=== PATIENT | female | born 1935 | race Caucasian/White ===

== ENCOUNTER 2017-12-02 12:59 | Outpatient (CLI) | payer MEDICARE ==
[2017-12-02 14:58] LABS: Hemoglobin 15.1 g/dL (12.0-16.0); Mean Corpuscular HGB CONC 33.7 g/dL (32.0-36.0); Mean Corpuscular Hemoglobin 29.3 pg (27.0-31.0); Mean Platelet Volume 9.2 fL (7.4-10.4); Platelet Count 254 thou/uL (130-400); RBC Distribution Width 12.9 % (11.5-14.5); Red Blood Cell (RBC) Count 5.13 mill/uL (4.20-5.40)
[2017-12-02 14:59] LABS: Bilirubin Negative (Negative); Blood, Urine Negative (Negative); Clarity CLEAR (Clear); Glucose, Urine (Dipstick) 500 mg/dL (Negative); Leukocyte Trace (Negative); Nitrite Negative (Negative); Protein, Urine (Dipstick) Trace mg/dL (Neg-Trace); Specific Gravity, Urine 1.012 (1.002-1.036); Urobilinogen 0.2 mg/dL (0.2-1.0); pH, Urine 6.5 (5.0-9.0)
[2017-12-02 15:02] LABS: Bacteria/HPF None Seen HPF (None Seen); Hyaline Casts/LPF 0-3 HYALINE CAST LPF (0-3 Hyaline); Pathc Cast-AUWi Flag 0.29 (0-2.49); RBC/HPF 0-3 HPF (0-3); Squamous Epithelial 0-3 HPF (0-3)
[2017-12-02 15:15] LABS: Prothrombin Time 23.1 SEC (12.0-14.7)
[2017-12-02 15:16] LABS: PTT 43.6 SEC (22.9-36.1)
[2017-12-02 15:21] LABS: Anion Gap 13 mmol/L (10-20); BUN (Urea Nitrogen) 14 mg/dL (9.8-20.1); Calc. Creatinine Clearance 0 mL/min (70-130); Calcium 9.4 mg/dL (7.8-10.44); Carbon Dioxide 29 mmol/L (23-31); Chloride 103 mmol/L (98-107); Estimated GFR-MDRD 59; Glucose 159 mg/dL (83-110); Potassium 3.1 mmol/L (3.5-5.1); Sodium 142 mmol/L (136-145)
== END 2017-12-02 13:00 | disposition home or self-care (01) ==
LOC: LABBT 12:59
PROVIDERS: ATTEND Orthopaedic Surgery
DX: Z01.818 Encounter for other preprocedural examination (principal); M17.11 Unilateral primary osteoarthritis, right knee
CPT/HCPCS: 80048; 81001; 85027; 85610; 85730; 86850; 86900; 86901; 87081; 93005; 93010

== ENCOUNTER 2017-12-07 05:34 | Inpatient (IN) | payer MEDICARE ==
[2017-12-07] MEDS ORDERED: Vancomycin HCl 1.5 GM in Sodium Chloride 0.9% 250 ML 300 ML IVPB SCH ×2 (06:15→18:00)
[2017-12-07] MEDS ORDERED: Fentanyl 100 MCG/2 ML VIAL ONE ×3 (06:24→10:37)
[2017-12-07] MEDS ORDERED: Midazolam HCl 2 mg/2 ml Vial ONE (06:24)
[2017-12-07] MEDS ORDERED: Sodium Chloride 0.9% 100 ML ONE (06:29)
[2017-12-07] MEDS ORDERED: CEFAZOLIN/Water 2 GM/20 ML SYRINGE ONE (06:29)
[2017-12-07] MEDS ORDERED: Bupivacaine HCl 0.5%/Epinephrine 1:200,000/PF 30 ml Vial ONE (06:35)
[2017-12-07] MEDS ORDERED: Levofloxacin 500 mg/D5W 100 ml Premix Bag ONE (06:49)
[2017-12-07 07:03] LABS: PTT 30.9 SEC (22.9-36.1); Prothrombin Time 13.4 SEC (12.0-14.7)
[2017-12-07] MEDS ORDERED: traMADol HCl 50 MG TAB PO PRN ×2 (07:33)
[2017-12-07] MEDS ORDERED: Promethazine HCl 25 MG/ML VIAL IM PRN ×3 (07:33→14:33)
[2017-12-07] MEDS ORDERED: Fentanyl 100 MCG/2 ML VIAL IV PRN (07:33)
[2017-12-07] MEDS ORDERED: Zolpidem Tartrate 5 MG TAB PO PRN ×2 (07:33→14:33)
[2017-12-07] MEDS ORDERED: Ondansetron HCl/PF 4 MG/2 ML Vial IVP PRN ×2 (07:33→08:26)
[2017-12-07] MEDS ORDERED: HYDROcodone/Acetaminophen 7.5/325 mg Tablet PO PRN ×2 (07:34)
[2017-12-07] MEDS ORDERED: Bupivacaine/Epinephrine 0.25% 30 ML VIAL ONE (08:22)
[2017-12-07] MEDS ORDERED: Promethazine HCl 25 MG/ML VIAL SLOW IVP PRN (08:26)
[2017-12-07 10:12] LABS: Bilirubin Negative (Negative); Blood, Urine Negative (Negative); Clarity CLEAR (Clear); Glucose, Urine (Dipstick) 500 mg/dL (Negative); Leukocyte Negative (Negative); Nitrite Negative (Negative); Protein, Urine (Dipstick) Negative (Neg-Trace); Specific Gravity, Urine 1.016 (1.002-1.036); Urobilinogen 0.2 mg/dL (0.2-1.0); pH, Urine 7.5 (5.0-9.0)
[2017-12-07] MEDS ORDERED: Ondansetron HCl/PF 4 MG/2 ML Vial ONE (10:41)
[2017-12-07] MEDS ORDERED: Ketorolac Tromethamine 30 MG/ML VIAL ONE (10:42)
[2017-12-07] MEDS ORDERED: Ketorolac Tromethamine 30 MG/ML VIAL IVP SCH (11:00)
[2017-12-07] MEDS ORDERED: Tranexamic Acid 1,000 MG in Sodium Chloride 0.9% 100 ML IVPB SCH (11:00)
[2017-12-07] MEDS ORDERED: Acetaminophen 1,000 MG in Premix Bag 1 BAG IVPB SCH (11:00)
[2017-12-07] MEDS ORDERED: Ropivacaine 0.5% HCl/PF (150 MG/30 ML VIAL) ONE (12:33)
[2017-12-07] MEDS ORDERED: Bupivacaine 0.25% HCL 30 ML VIAL ONE (12:33)
--- NOTE | 2017-12-07 12:44 | RAD ---
TWO VIEWS RIGHT KNEE: Date: 12-07-17 History: Total knee post-operative. Comparison: None available. FINDINGS: There is evidence of a right total knee prosthesis. No hardware complication is seen. There is no fra cture or dislocation identified. Subcutaneous emphysema and edema are seen about the knee. Vascular c alcifications are seen posterior to the knee. IMPRESSION: Post-surgical change related to recent placement of a right total knee prosthesis. POS: [facility]
[2017-12-07] MEDS ORDERED: Lidocaine 1% PF 5 ML VIAL ONE (12:47)
[2017-12-07] MEDS ORDERED: ePHEDrine/0.9% NaCl/PF SYRINGE 50 mg/10 ml ONE (12:47)
[2017-12-07] MEDS ORDERED: PROPOFOL 200 MG/20 ML VIAL ONE (12:47)
[2017-12-07] MEDS ORDERED: Multivitamin W/ Minerals 1 TAB PO SCH ×2 (14:33→15:00)
[2017-12-07] MEDS ORDERED: Fentanyl 100 MCG/2 ML VIAL SLOW IVP PRN ×2 (14:33)
[2017-12-07] MEDS ORDERED: Senokot S 8.6-50 MG TAB PO SCH ×2 (14:33→15:00)
[2017-12-07] MEDS ORDERED: Ferrous Gluconate 324 MG TAB PO SCH ×2 (14:33→15:00)
[2017-12-07] MEDS ORDERED: diphenhydrAMINE 25 MG CAP PO PRN (14:33)
[2017-12-07] MEDS: Multivitamin W/ Minerals 1 TAB PO SCH (15:50)
[2017-12-07] MEDS: CEFAZOLIN/Water 2 GM/20 ML SYRINGE SLOW IVP SCH ×2 (15:50→23:46)
[2017-12-07] MEDS: Sodium Chloride 0.9% 1,000 ML IV SCH (15:51)
--- NOTE | 2017-12-07 16:50 | HP ---
CONSULT: From Dr. Celeste for medical management. HISTORY OF PRESENT ILLNESS: The patient is status post right knee arthroplasty. Patient had some na usea and vomiting in the recovery room, this resolved rapidly. Since that time, she has had no nause a, no sweats, no fever, no chest pain, no shortness of breath. PAST MEDICAL HISTORY: Pertinent for atrial fibrillation. She underwent cardioversion approximately 16 months ago. She has hypertension, diabetes mellitus type 2, dyslipidemia and chronic anticoagulat ion. CURRENT MEDICATIONS: Warfarin, which has been held for the surgery, sotalol 80 mg twice a day, Tresi ba FlexTouch insulin 18 units at bedtime, Lipitor 20 mg a day, amlodipine 5 mg a day, losartan 100 mg a day, furosemide 40 mg a day, clonidine 0.1 mg twice a day, and Protonix 40 mg a day. ALLERGIES: No medical allergies, but multiple FOOD allergies. PAST SURGICAL HISTORY: Three colon surgeries, she only has 9 inches of colon left, bilateral catarac t surgery, hysterectomy, and resection of a cyst on her spine. FAMILY HISTORY: Her father and 3 of his siblings had coronary artery disease and diabetes mellitus. Her brother with type 1 and nephew with type 1, and both grandfathers had type 2. SOCIAL HISTORY: She is . FULL CODE status. next of kin. No tobacco, no alcohol. REVIEW OF SYSTEMS: GENERAL: No headaches, dizziness or fainting. EYES: No double vision, blurred vision, flashing lights. ENT: No ear pain or drainage. No nose bleeding. No trouble swallowing. CARDIAC: No chest pain, orthopnea or paroxysmal nocturnal dyspnea. RESPIRATIONS: No cough, wheezing or asthma. GASTROINTESTINAL: Nausea and vomiting upon recovery from anesthesia, resolved. GENITOURINARY: Frequent urinations, incontinence, sees a urologist for same. Takes no medicines ___ __ pads. MUSCULOSKELETAL: No pain or swelling in her arms or legs. NEUROLOGIC: No strokes, seizures, or focal weakness. PSYCHIATRIC: No anxiety or depression. SKIN: She had a long episode of idiopathic hives. She finally decides that the artificial sweetener in the pink pocket caused it, she stopped and she has had no further problems. HEME AND LYMPH: No tender or swollen lymph nodes in axilla, inguinal or cervical area. PHYSICAL EXAMINATION: GENERAL: She is alert, oriented, cooperative, pleasant lady. VITAL SIGNS: Pulse 76, blood pressure 120/60, respirations 16. HEENT: Reveal pupils equal, round, and reactive to light. Extraocular movements are intact. Sclera e white. Tympanic membranes clear. Nose clear. Throat is clear. NECK: Supple, without jugular venous distention, adenopathy or thyromegaly. CHEST: Clear to auscultation and percussion. HEART: Regular rate and rhythm. First and second heart sounds are clear. There are no murmurs or g allop. ABDOMEN: Soft, bowel sounds are normal. There is no hepatosplenomegaly, no mass, no rebound, no bru its. EXTREMITIES: Reveal no cyanosis, clubbing or edema. PULSES: Carotid, radial, femoral, and dorsalis pedis pulses intact. SKIN: Warm and dry without bruises or rash. HEME/LYMPH: No tender or swollen lymph nodes. Right knee is bandaged. NEUROLOGICAL: Cranial nerves II-XII are intact. Moves all extremities. LABORATORY AND X-RAY FINDINGS: Done as an outpatient on 12/02/2017. Basic metabolic profile revealed an abnormality only of 3.1 potassium. . Her INR on 12/02/2017 was 2.0, which is 1.0724. CBC was n ormal on 12/02/2017. EKG: Regular sinus rhythm, no ST-T abnormality within normal limits. ADMITTING DIAGNOSES: 1. Atrial fibrillation post-cardioversion 2. Dyslipidemia. 3. Diabetes mellitus type 2. 4. Hypertension. ASSESSMENT: Stable postop, doing well. We will reinstitute home medicines. We will continue to fol low with you. Thank you for the consult.
--- NOTE | 2017-12-07 16:54 | OP ---
DATE OF PROCEDURE: 12/07/2017 PREOPERATIVE DIAGNOSIS: Right knee osteoarthritis. POSTOPERATIVE DIAGNOSIS: Right knee osteoarthritis. PROCEDURE PERFORMED: Right total knee arthroplasty. STAFF: George Celeste M.D. FINANCIAL ADVOCATE: Kolton Haque PA-C ANESTHESIA: Dr. Phipps. The patient received LMA with a single shot sciatic and adductor canal block. ESTIMATED BLOOD LOSS: 200 mL. TOURNIQUET TIME: 81 minutes at 300 mmHg. ANTIBIOTICS: Ancef 2 grams, vancomycin 1.5 grams, Levaquin 5 mg, TXA was given at 1 gram. IMPLANTS: A John size 3 femur, size 3 tibia, A29 patella, 11 CS femur. COMPLICATIONS: PCL deficiency. HISTORY OF PRESENT ILLNESS: Ms. Garcia is an 82-year-old female with longstanding history of right knee pain. The patient is a diabetic with a significant past history. I discussed with patient that her right knee osteoarthritis, is at increased risk of pain, scar, bleeding, infection, damage to vital structures, decreased range of motion or strength, failure of procedure , continued pain, loss of life or limb. The patient understood these risks and benefits and elected to proceed. PROCEDURE NOTE: Time-out was performed designating the patient's right lower extremity as the operative site based on sight, consents, and marking. After completion of timeout, the patient's right lower extremity was prepped and draped in sterile fashion. Anterior midline approach was made, medial patellar arthrotomy, excised the fat pad, medial soft tissue release, everted the patella , mapped out our femur, cut 0 degrees in varus and valgus, 4 degrees anterior slope, 10 and 9 and 6 respectively. Cut our distal femur, we removed the osteophytes. We then removed the patient's tibia, and we mapped out, externally rotated 3 degrees right and cut a size 3 femur, cut anterior and posterior chamfer cuts, removed the osteophytes, placed our pickle fork, and some of our PCL release seemed very poorly deficient. We exposed the tibia, cut our tibia 0 degrees varus and valgus, 1 and 6 with 4 degrees posterior slope removed the osteophytes inferiorly and posteriorly. The patient's PCL was either deficient that was cut with the tibia cut, beside protecting it with our pickle fork. Removed all the osteophytes. We then placed our lamina cigarette examiner, removed our medial and lateral menisci. We knocked off the osteophytes. Ensured we had spread position and no block to extension, we then removed all of the osteophytes. Decompression of medial and lateral compartment down and put our tray in, a size 3 tray. We put it with a 9 and looked an 11. I did switch my pinning position and let it track in a more center position. The patient overall had good alignment of her tibia. After we pinned 11 poly, she had no instability anterior to posterior despite PCL deficiency. Had good varus and valgus stability in flexion and full extension. We then everted our patella, cut it from about 24 at its greatest down to 14- 13. We removed osteophytes, placed a A29 patella and tracked well. We then drilled our lugs for our femur, cut our keel for tibia, removed all implants, washed, cemented our tibia, placed our poly, cemented our femur, removed excess cement, cemented our patella, removed all excess cement. After we removed all excess cement and washed the joint, we then closed the arthrotomy with #2 Vicryl , #2 Quill, 0 Quill, 2-0 Quill, and glue. This patient will be sent to the hospital. Patient will likely need admission given her multiple medical problems, to be followed by Medicine. The patient had some history of heart block, which she showed during the procedure. She will be followed by Medicine for diabetes plus medical management. SHANNON
[2017-12-07] MEDS: Warfarin Sodium 5 MG TAB PO SCH (17:41)
[2017-12-07] MEDS: HYDROcodone/Acetaminophen 10/325 mg Tablet PO PRN ×2 (19:38→23:29)
[2017-12-07] MEDS: Atorvastatin Calcium 20 MG TAB PO SCH (19:42)
[2017-12-07] MEDS: Ferrous Gluconate 324 MG TAB PO SCH (19:42)
[2017-12-07] MEDS: cloNIDine 0.1 MG TAB PO SCH (19:47)
[2017-12-07] MEDS: Sotalol HCl 80 MG TAB PO SCH (19:47)
[2017-12-07] MEDS: Ondansetron HCl/PF 4 MG/2 ML Vial IVP PRN (19:54)
[2017-12-07] MEDS: Senokot S 8.6-50 MG TAB PO SCH (20:00)
[2017-12-07] MEDS ORDERED: TRESIBA U SC SCH (21:00)
[2017-12-07] MEDS ORDERED: Prevnar 13-Val Conj/PF 0.5 ML SYRINGE IM ONE (21:00)
[2017-12-07] MEDS: Insulin Glargine 18 UNITS in Pre-Filled Syringe 1 EACH SC SCH (21:27)
[2017-12-07] MEDS: traMADol HCl 50 MG TAB PO PRN (21:49)
[2017-12-08 05:32] LABS: Hemoglobin 13.4 g/dL (12.0-16.0); Mean Corpuscular HGB CONC 31.8 g/dL (32.0-36.0); Mean Corpuscular Hemoglobin 27.9 pg (27.0-31.0); Mean Corpuscular Volume 87.6 fL (78.0-98.0); Mean Platelet Volume 8.9 fL (7.4-10.4); Platelet Count 248 thou/uL (130-400); RBC Distribution Width 12.7 % (11.5-14.5); Red Blood Cell (RBC) Count 4.79 mill/uL (4.20-5.40); White Blood Cell (WBC) Count 12.5 thou/uL (4.8-10.8)
[2017-12-08] MEDS: Sodium Chloride 0.9% 1,000 ML IV SCH ×2 (06:14→10:32)
[2017-12-08] MEDS: Ondansetron HCl/PF 4 MG/2 ML Vial IVP PRN ×2 (06:25→13:04)
[2017-12-08] MEDS: HYDROcodone/Acetaminophen 10/325 mg Tablet PO PRN (06:49)
[2017-12-08] MEDS: Amlodipine 5 MG TAB PO SCH (08:54)
[2017-12-08] MEDS: cloNIDine 0.1 MG TAB PO SCH ×2 (08:54→22:15)
[2017-12-08] MEDS: Sotalol HCl 80 MG TAB PO SCH ×2 (08:55→23:39)
[2017-12-08] MEDS: Furosemide 40 MG TAB PO SCH (08:56)
[2017-12-08] MEDS: Losartan 25 MG TAB PO SCH (08:59)
[2017-12-08] MEDS: Metamucil PACK PO SCH ×2 (09:04→13:12)
[2017-12-08] MEDS: Calcium Carbonate 600 MG TAB PO SCH (09:05)
[2017-12-08] MEDS: Ferrous Gluconate 324 MG TAB PO SCH ×2 (09:05→22:14)
[2017-12-08] MEDS: Fish Oil 1,000 MG CAP PO SCH (09:05)
[2017-12-08] MEDS: Senokot S 8.6-50 MG TAB PO SCH ×3 (09:06→23:38)
[2017-12-08] MEDS: Lactinex Tablet PO SCH (09:06)
[2017-12-08] MEDS: Multivit, Therapeutic 1 TAB PO SCH (09:07)
[2017-12-08] MEDS ORDERED: Acetaminophen 1,000 MG in Premix Bag 1 BAG IVPB PRN (12:17)
[2017-12-08] MEDS: Ropivacaine HCl/PF 250 ML in Premix Bag 1 BAG NERVE BLCK SCH (13:02)
--- NOTE | 2017-12-08 14:27 | PDOC.PN ---
- Subjective Encounter Start Date: 12/08/17 Encounter Start Time: 14:25 Subjective: doing ok - Objective MAR Reviewed: Yes Vital Signs & Weight: Vital Signs (12 hours) Temp Pulse Resp BP BP BP Pulse Ox 12/08/17 10:48 98.8 F 56 L 16 160/65 H 95 12/08/17 08:55 75 180/63 H 12/08/17 08:54 75 180/63 H 12/08/17 08:00 98.4 F 75 14 95 12/08/17 07:38 98.4 F 75 14 180/63 H 95 12/08/17 04:28 99 F 64 18 161/73 H 94 L Weight Admit Weight 203 lb Weight 203 lb I&O: 12/07/17 12/08/17 12/09/17 06:59 06:59 06:59 Intake Total 2540 Output Total 4350 2800 Balance -1810 -2800 Result Diagrams: 12/08/17 04:47 Additional Labs: Accuchecks 12/08/17 12/08/17 12/07/17 10:48 06:39 21:30 POC Glucose 119 H 105 138 H 12/07/17 12/07/17 16:55 06:42 POC Glucose 152 H 104 Phys Exam - Physical Examination Neck: no JVD Respiratory: clear to auscultation bilateral Cardiovascular: RRR, no significant murmur Gastrointestinal: soft, positive bowel sounds Musculoskeletal: no edema Dx/Plan (1) Atrial fibrillation with controlled ventricular rate Code(s): I48.91 - UNSPECIFIED ATRIAL FIBRILLATION Status: Chronic (2) DM type 2 (diabetes mellitus, type 2) Status: Chronic Qualifiers: Diabetes mellitus residential insulin use: without regional intermodal truck driver use Diabetes mellitus complication status: without complication Qualified Code(s): E11.9 - Type 2 diabetes mellitus without complications (3) Dyslipidemia Code(s): E78.5 - HYPERLIPIDEMIA, UNSPECIFIED Status: Chronic (4) HTN (hypertension) Code(s): I10 - ESSENTIAL (PRIMARY) HYPERTENSION Status: Chronic Qualifiers: Hypertension type: essential hypertension Qualified Code(s): I10 - Essential (primary) hypertension - Plan doing very well post op -: cont sotalol, amlodipine, insulin, etc * .
[2017-12-08] MEDS: Warfarin Sodium 5 MG TAB PO SCH (17:37)
[2017-12-08] MEDS: Atorvastatin Calcium 20 MG TAB PO SCH (22:16)
[2017-12-08] MEDS: Insulin Glargine 18 UNITS in Pre-Filled Syringe 1 EACH SC SCH (23:21)
--- NOTE | 2017-12-08 23:37 | PDOC.EVN ---
Event Note - Event Note Event Note: RN called - Pt bradycardic on pulse oximetry. Will hold Sotalol tonight. Get EKG. Update - EKG showed ?2nd deg AV block - Will transfer to tele for close monitoring. Hold Sotalol for now.
[2017-12-09] MEDS: Sodium Chloride 0.9% 1,000 ML IV SCH ×3 (01:52→20:13)
[2017-12-09 02:01] LABS: Anion Gap 15 mmol/L (10-20); BUN (Urea Nitrogen) 14 mg/dL (9.8-20.1); Calc. Creatinine Clearance 81 mL/min (70-130); Calcium 8.9 mg/dL (7.8-10.44); Carbon Dioxide 21 mmol/L (23-31); Chloride 103 mmol/L (98-107); Estimated GFR-MDRD 71; Glucose 159 mg/dL (83-110); Magnesium 1.8 mg/dL (1.6-2.6); Potassium 3.3 mmol/L (3.5-5.1); Sodium 136 mmol/L (136-145)
[2017-12-09] MEDS: Amlodipine 5 MG TAB PO SCH (08:55)
[2017-12-09] MEDS: cloNIDine 0.1 MG TAB PO SCH ×2 (08:55→20:13)
[2017-12-09] MEDS: Losartan 25 MG TAB PO SCH (08:56)
[2017-12-09] MEDS: Furosemide 40 MG TAB PO SCH (08:56)
[2017-12-09 08:59] LABS: Hemoglobin 13.2 g/dL (12.0-16.0); INR-International Normal Ratio 1.4; Mean Corpuscular HGB CONC 32.7 g/dL (32.0-36.0); Mean Corpuscular Hemoglobin 28.7 pg (27.0-31.0); Mean Corpuscular Volume 87.6 fL (78.0-98.0); Mean Platelet Volume 9.2 fL (7.4-10.4); Platelet Count 224 thou/uL (130-400); Prothrombin Time 16.9 SEC (12.0-14.7); RBC Distribution Width 13.1 % (11.5-14.5); Red Blood Cell (RBC) Count 4.59 mill/uL (4.20-5.40); White Blood Cell (WBC) Count 15.1 thou/uL (4.8-10.8)
[2017-12-09] MEDS: Fish Oil 1,000 MG CAP PO SCH (09:07)
[2017-12-09] MEDS: Ferrous Gluconate 324 MG TAB PO SCH ×2 (09:07→20:13)
[2017-12-09] MEDS: Lactinex Tablet PO SCH (09:07)
[2017-12-09] MEDS: Multivitamin W/ Minerals 1 TAB PO SCH (09:07)
[2017-12-09] MEDS: Multivit, Therapeutic 1 TAB PO SCH (09:07)
[2017-12-09] MEDS: Calcium Carbonate 600 MG TAB PO SCH (09:07)
[2017-12-09] MEDS: Senokot S 8.6-50 MG TAB PO SCH ×2 (09:07→20:13)
[2017-12-09] MEDS: Sotalol HCl 80 MG TAB PO SCH (09:16)
[2017-12-09] MEDS: Metamucil PACK PO SCH ×2 (09:17→13:55)
--- NOTE | 2017-12-09 10:05 | PDOC.PN ---
- Subjective Encounter Start Date: 12/09/17 Encounter Start Time: 10:04 Subjective: moved to [facility] for bradycardia - Objective MAR Reviewed: Yes Vital Signs & Weight: Vital Signs (12 hours) Temp Pulse Resp BP BP BP Pulse Ox 12/09/17 09:16 48 L 195/65 H 12/09/17 08:55 48 L 195/65 H 12/09/17 07:47 48 L 169/53 H 12/09/17 07:30 98.7 F 46 L 20 186/55 H 95 12/09/17 04:00 99.1 F 48 L 18 160/50 H 94 L 12/09/17 03:00 99.4 F 47 L 18 154/48 H 95 12/09/17 02:40 99.7 F H 50 L 18 158/49 H 96 12/09/17 00:45 98.8 F 50 L 16 165/63 H 91 L 12/09/17 00:00 98.8 F 59 L 16 174/52 H 92 L 12/08/17 23:39 183/62 H 12/08/17 22:15 183/62 H Weight Admit Weight 203 lb Weight 203 lb I&O: 12/08/17 12/09/17 12/10/17 06:59 06:59 06:59 Intake Total 2540 1520 Output Total 4350 3250 Balance -1810 -1730 Result Diagrams: 12/09/17 08:27 12/09/17 01:30 Additional Labs: Accuchecks 12/08/17 12/08/17 12/08/17 22:05 15:41 10:48 POC Glucose 143 H 159 H 119 H EKG Reviewed by me: Yes (complete AV dissocian) Phys Exam - Physical Examination Neck: no JVD Respiratory: clear to auscultation bilateral Cardiovascular: RRR slow Gastrointestinal: soft, positive bowel sounds Musculoskeletal: no edema, edema present Dx/Plan (1) AV dissociation Code(s): I45.89 - OTHER SPECIFIED CONDUCTION DISORDERS Status: Acute (2) Atrial fibrillation with controlled ventricular rate Code(s): I48.91 - UNSPECIFIED ATRIAL FIBRILLATION Status: Chronic (3) DM type 2 (diabetes mellitus, type 2) Status: Chronic Qualifiers: Diabetes mellitus intermediate insulin use: without intermediate use Diabetes mellitus complication status: without complication Qualified Code(s): E11.9 - Type 2 diabetes mellitus without complications (4) Dyslipidemia Code(s): E78.5 - HYPERLIPIDEMIA, UNSPECIFIED Status: Chronic (5) HTN (hypertension) Code(s): I10 - ESSENTIAL (PRIMARY) HYPERTENSION Status: Chronic Qualifiers: Hypertension type: essential hypertension Qualified Code(s): I10 - Essential (primary) hypertension - Plan DC sotalol -: DR Dewitt consulted * .
--- NOTE | 2017-12-09 10:49 | EKG ---
Test Reason : STAT Blood Pressure : / mmHG Vent. Rate : 050 BPM Atrial Rate : 091 BPM P-R Int : 000 ms QRS Dur : 126 ms QT Int : 450 ms P-R-T Axes : 071 -41 095 degrees QTc Int : 410 ms Sinus rhythm with 2nd degree A-V block (Mobitz I) with 2:1 A-V conduction Left axis deviation Left ventricular hypertrophy with QRS widening and repolarization abnormality Cannot rule out Septal infarct (cited on or before 02-DEC-2017) Abnormal ECG When compared with ECG of 02-DEC-2017 13:47, (Unconfirmed) Sinus rhythm is now with 2nd degree A-V block (Mobitz I) QRS axis Shifted left Non-specific change in ST segment in Inferior leads QT has shortened Confirmed by RASHEED COLON, DR. Gupta ([id number]) on 12/09/2017 10:49:07 AM Referred By: JAZMIN Confirmed By:DR. Alonso IQBAL MD
--- NOTE | 2017-12-09 10:49 | EKG ---
Test Reason : Blood Pressure : / mmHG Vent. Rate : 049 BPM Atrial Rate : 049 BPM P-R Int : 000 ms QRS Dur : 118 ms QT Int : 450 ms P-R-T Axes : 083 -36 089 degrees QTc Int : 406 ms Undetermined rhythm Left axis deviation Pulmonary disease pattern Left ventricular hypertrophy with QRS widening and repolarization abnormality Cannot rule out Septal infarct (cited on or before 02-DEC-2017) Abnormal ECG When compared with ECG of 09-DEC-2017 00:27, (Unconfirmed) Current undetermined rhythm precludes rhythm comparison, needs review Confirmed by RASHEED COLON, DR. Gupta ([id number]) on 12/09/2017 10:49:22 AM Referred By: JAZMIN Confirmed By:DR. Alonso IQBAL MD
[2017-12-09] MEDS: Ropivacaine HCl/PF 250 ML in Premix Bag 1 BAG NERVE BLCK SCH (13:28)
--- NOTE | 2017-12-09 13:28 | CON ---
DATE OF CONSULTATION: 12/09/2017 HISTORY: Crystal Garcia is an 82-year-old white female who was initially evaluated by Dr. Urbano in 06/2016. She presented with shortness of breath and atrial fibrillation. She was started on Eliquis and Multaq and underwent electrical cardioversion with 200 joules and returned to sinus rhythm. Echocardiogram at that time revealed ejection fraction of 55-60% with mild aortic stenosis, mild mitral regurgitation, mild tricuspid regurgitation. Apparently after she was discharged, Eliquis and Multaq were too expensive to take. She had discussed this with her primary physician, Dr. Andi Silevira and decided to instead take warfarin. Also, sotalol 80 mg b.i.d. was apparently started at sometime. She was seen in the office once in 11/2016 and was seen by Dr. Florez at that time. It is of interest that she was back in atrial fibrillation on EKG in the office at that time. Also, EKG showed interventricular conduction delay, which is not present on her EKG now. She has not been seen for Cardiology evaluation in over 1 year. She now has undergone a right total knee replacement. Postoperatively, it was noted that she was bradycardic and EKG at approximately 12:30 a.m. this morning revealed AV dissociation with heart rate of 50 per minute. She was then transferred to telemetry for further monitoring. The patient denies any chest discomfort or shortness of breath at home. She denies any lightheadedness or dizziness, but does state that in the morning she has "trouble getting going." She is weak and says it usually takes her until 8:00 a.m. until she can get up to function properly. PAST MEDICAL HISTORY: Diabetes, hypertension, obstructive sleep apnea, obesity , hypertension, history of atrial fibrillation with cardioversion in 06/2016. OPERATIONS: Colon surgery, hysterectomy, and right total knee replacement. MEDICATIONS: Amlodipine 5 mg q.a.m., atorvastatin 20 at bedtime, calcium 600 mg daily, Catapres 0.1 mg b.i.d., furosemide 40 q.a.m., losartan 100 mg q.a.m., insulin - Tresiba 18 units at bedtime, fish oil 1 daily, pantoprazole 40 q.a.m. , sotalol 80 mg b.i.d., warfarin 5 mg daily. ALLERGIES: BANANA, LACTOSE, CHOCOLATE and ORANGES. SOCIAL HISTORY: She does not smoke or drink. PHYSICAL EXAMINATION: VITAL SIGNS: Blood pressure 164/58, pulse of 44. HEENT: PERRL. NECK: Supple. LUNGS: Chest is clear. CARDIAC: S1, S2 normal, without any S3 or S4. There is a 2/6 systolic ejection murmur in the aortic area and along the left sternal border. ABDOMEN: Normal bowel sounds, without tenderness. EXTREMITIES: Revealed no clubbing, cyanosis or edema. NEUROLOGIC: Grossly intact. LABORATORY: EKGs revealed sinus rhythm with AV dissociation. INR 1.4, hemoglobin 13.2, hematocrit 40.2, white count 15,100, platelets 224,000. Sodium 136, potassium 3.3, chloride 103, carbon dioxide 21, BUN 14, creatinine 0.78. IMPRESSION: 1. 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 2. History of atrial fibrillation, status post cardioversion in 06/2016. Apparently she could not afford Multaq and was placed on sotalol. When she was seen in 11/2016 in the office she was on sotalol at that time, but also was in atrial fibrillation. The patient is being anticoagulated with warfarin since she could not afford the Eliquis that she was discharged on in 06/2016, 3. rn school weakness, possibly related to the bradycardia. 4. Hypertension. 5. Hypercholesterolemia. 6. Diabetes. 7. Obstructive sleep apnea. 8. Obesity. 9. Mild aortic stenosis with a peak gradient of 16 mm in 06/2016. PLAN: Echocardiogram will be performed to reassess her mild aortic stenosis. Sotalol will be discontinued at this time. She will continue to be monitored. She may require a pacemaker placement and therefore I will hold her warfarin. We will follow the patient with you. SHANNON
[2017-12-09] MEDS: Atorvastatin Calcium 20 MG TAB PO SCH (20:13)
[2017-12-09] MEDS: Insulin Glargine 18 UNITS in Pre-Filled Syringe 1 EACH SC SCH (20:14)
[2017-12-10 04:06] LABS: Hemoglobin 12.1 g/dL (12.0-16.0); Mean Corpuscular HGB CONC 34.2 g/dL (32.0-36.0); Mean Corpuscular Hemoglobin 30.1 pg (27.0-31.0); Mean Platelet Volume 9.2 fL (7.4-10.4); Platelet Count 200 thou/uL (130-400); RBC Distribution Width 12.9 % (11.5-14.5); Red Blood Cell (RBC) Count 4.02 mill/uL (4.20-5.40); White Blood Cell (WBC) Count 13.3 thou/uL (4.8-10.8)
[2017-12-10 04:12] LABS: INR-International Normal Ratio 1.3; Prothrombin Time 16.1 SEC (12.0-14.7)
[2017-12-10] MEDS: Sodium Chloride 0.9% 1,000 ML IV SCH ×3 (05:15→20:41)
[2017-12-10] MEDS ORDERED: Amlodipine 5 MG TAB PO SCH (08:25)
[2017-12-10] MEDS: Calcium Carbonate 600 MG TAB PO SCH (08:43)
[2017-12-10] MEDS: Fish Oil 1,000 MG CAP PO SCH (08:44)
[2017-12-10] MEDS: Enoxaparin Sodium 40 MG/0.4 ML SYRINGE SC SCH (08:44)
[2017-12-10] MEDS: Multivitamin W/ Minerals 1 TAB PO SCH (08:44)
[2017-12-10] MEDS: Ferrous Gluconate 324 MG TAB PO SCH ×2 (08:44→20:40)
[2017-12-10] MEDS: Losartan 25 MG TAB PO SCH (08:44)
[2017-12-10] MEDS: Lactinex Tablet PO SCH (08:44)
[2017-12-10] MEDS: Furosemide 40 MG TAB PO SCH (08:44)
[2017-12-10] MEDS: Senokot S 8.6-50 MG TAB PO SCH ×2 (08:45→20:39)
[2017-12-10] MEDS: Metamucil PACK PO SCH (08:45)
[2017-12-10] MEDS: NIFEdipine XL 30 MG TAB PO SCH ×2 (08:45→20:39)
[2017-12-10 10:41] LABS: Anion Gap 14 mmol/L (10-20); BUN (Urea Nitrogen) 13 mg/dL (9.8-20.1); Calc. Creatinine Clearance 92 mL/min (70-130); Calcium 8.9 mg/dL (7.8-10.44); Carbon Dioxide 23 mmol/L (23-31); Chloride 104 mmol/L (98-107); Estimated GFR-MDRD 81; Glucose 108 mg/dL (83-110); Sodium 138 mmol/L (136-145)
[2017-12-10 10:48] LABS: Potassium 2.9 mmol/L (3.5-5.1)
[2017-12-10] MEDS ORDERED: Potassium Chloride 20 MEQ TAB PO SCH (13:00)
[2017-12-10] MEDS ORDERED: Potassium Chloride 20 MEQ in Premix Bag 1 BAG IVPB SCH (13:30)
[2017-12-10] MEDS: traMADol HCl 50 MG TAB PO PRN ×2 (14:02→20:40)
[2017-12-10] MEDS: Atorvastatin Calcium 20 MG TAB PO SCH (20:40)
[2017-12-10] MEDS: Insulin Glargine 18 UNITS in Pre-Filled Syringe 1 EACH SC SCH (20:41)
[2017-12-10] MEDS: hydrALAZINE 20 MG/ML VIAL SLOW IVP PRN (23:02)
[2017-12-11] MEDS: hydrALAZINE 20 MG/ML VIAL SLOW IVP PRN (03:03)
[2017-12-11 04:36] LABS: INR-International Normal Ratio 1.3; Prothrombin Time 16.6 SEC (12.0-14.7)
[2017-12-11 04:37] LABS: Hemoglobin 12.3 g/dL (12.0-16.0); Mean Corpuscular HGB CONC 33.7 g/dL (32.0-36.0); Mean Corpuscular Hemoglobin 29.7 pg (27.0-31.0); Mean Platelet Volume 9.4 fL (7.4-10.4); Platelet Count 256 thou/uL (130-400); RBC Distribution Width 13.1 % (11.5-14.5); Red Blood Cell (RBC) Count 4.16 mill/uL (4.20-5.40); White Blood Cell (WBC) Count 13.8 thou/uL (4.8-10.8)
[2017-12-11 05:07] LABS: Anion Gap 15 mmol/L (10-20); BUN (Urea Nitrogen) 17 mg/dL (9.8-20.1); Calc. Creatinine Clearance 89 mL/min (70-130); Calcium 8.5 mg/dL (7.8-10.44); Carbon Dioxide 22 mmol/L (23-31); Chloride 106 mmol/L (98-107); Estimated GFR-MDRD 78; Glucose 149 mg/dL (83-110); Magnesium 1.7 mg/dL (1.6-2.6); Potassium 3.2 mmol/L (3.5-5.1); Sodium 140 mmol/L (136-145)
[2017-12-11 05:13] LABS: CKMB 1.1 ng/mL (0-6.6); Troponin I 0.126 ng/mL (< 0.028)
[2017-12-11] MEDS ORDERED: Potassium Chloride 20 MEQ TAB PO PRN (06:21)
[2017-12-11] MEDS ORDERED: Potassium Phosphate 15 MMOL in Sodium Chloride 0.9% 250 ML 250 ML IV PRN (06:21)
[2017-12-11] MEDS ORDERED: CCU ELECTROLYTE REPLACEMENT PROTOCOL FS PRN (06:21)
[2017-12-11] MEDS ORDERED: Potassium Phosphate 12 MMOL in Sodium Chloride 0.9% 250 ML 250 ML IV PRN (06:21)
[2017-12-11] MEDS ORDERED: Potassium Chloride 40 MEQ in Sodium Chloride 0.9% 250 ML 250 ML IVPB PRN (06:21)
[2017-12-11] MEDS ORDERED: Magnesium Oxide 400 MG TAB PO PRN (06:21)
[2017-12-11] MEDS ORDERED: Magnesium 2 GM/NS 0.9% 100 ML 2 GM in Premix Bag 1 BAG IVPB PRN (06:21)
[2017-12-11] MEDS ORDERED: Potassium Chloride 40 MEQ in Premix Bag 1 BAG IVPB PRN (06:21)
[2017-12-11] MEDS ORDERED: Potassium Phosphate 9 MMOL in Sodium Chloride 0.9% 100 ML IVPB PRN (06:21)
[2017-12-11 07:33] LABS: CKMB 1.3 ng/mL (0-6.6); Troponin I 0.118 ng/mL (< 0.028)
[2017-12-11] MEDS: Sodium Chloride 0.9% 1,000 ML IV SCH (08:32)
[2017-12-11] MEDS: Furosemide 40 MG TAB PO SCH (08:33)
[2017-12-11] MEDS: Fish Oil 1,000 MG CAP PO SCH (08:33)
[2017-12-11] MEDS: Enoxaparin Sodium 40 MG/0.4 ML SYRINGE SC SCH (08:33)
[2017-12-11] MEDS: Ferrous Gluconate 324 MG TAB PO SCH ×2 (08:33→20:54)
[2017-12-11] MEDS: Senokot S 8.6-50 MG TAB PO SCH ×2 (08:34→20:54)
[2017-12-11] MEDS: Metamucil PACK PO SCH (08:34)
[2017-12-11] MEDS: Losartan 25 MG TAB PO SCH (08:34)
[2017-12-11] MEDS: Multivitamin W/ Minerals 1 TAB PO SCH (08:34)
[2017-12-11] MEDS: Lactinex Tablet PO SCH (08:34)
[2017-12-11] MEDS: NIFEdipine XL 30 MG TAB PO SCH ×2 (08:34→20:53)
[2017-12-11] MEDS: Magnesium Oxide 400 MG TAB PO PRN ×2 (08:35→17:57)
[2017-12-11] MEDS: Calcium Carbonate 600 MG TAB PO SCH (08:46)
[2017-12-11] MEDS ORDERED: Losartan 25 MG TAB PO SCH (09:00)
--- NOTE | 2017-12-11 09:40 | PDOC.CTH ---
Cardiology Progress Note - Subjective Pt with limited ambulation. Doesnt feel like participating but did walk this am. HR continues to be low. On lovenox 40mg sq per day - Objective Vital Signs Temp Pulse Resp BP BP Pulse Ox 12/11/17 08:34 51 L 12/11/17 07:32 98.8 F 51 L 18 98 12/11/17 07:00 98.2 F 51 L 22 H 179/61 H 96 12/11/17 04:29 98 12/11/17 04:00 98.8 F 51 L 18 166/54 H 96 12/11/17 03:03 51 L 194/62 H 12/11/17 00:00 98.7 F 49 L 18 188/67 H 96 12/10/17 23:02 47 L 192/61 H Admit Weight 203 lb Weight 204 lb 8 oz 12/10/17 12/11/17 12/12/17 06:59 06:59 06:59 Intake Total 2811 1425 Output Total 1025 1550 Balance 1786 -125 - Labs Result Diagrams: 12/11/17 03:47 12/11/17 03:47 Troponin/CKMB CK-MB (CK-2) 1.3 ng/mL (0-6.6) 12/11/17 06:55 Troponin I 0.118 ng/mL (< 0.028) H 12/11/17 06:55 - Assessment/Plan 1. afib 2. Transient HB 3. distolic dysfunction 4. s/p knee surgery 5. Mild to moderate Restart Coumadin No further spidoes of HB continue low dose lovenox spoke with Dr. Celeste Pt continue with low HR. Need INR 2-3 PT and increase nutrition
[2017-12-11 10:46] LABS: CKMB 1.2 ng/mL (0-6.6); Troponin I 0.122 ng/mL (< 0.028)
[2017-12-11] MEDS: traMADol HCl 50 MG TAB PO PRN ×2 (11:41→19:12)
[2017-12-11] MEDS: Ondansetron HCl/PF 4 MG/2 ML Vial IVP PRN (12:41)
[2017-12-11 15:27] LABS: ALT (SGPT) 13 U/L (8-55); AST (SGOT) 19 U/L (5-34); Albumin 2.8 g/dL (3.4-4.8); Alkaline Phosphatase 75 U/L (40-150); Bilirubin, Direct 0.4 mg/dL (0.1-0.3); Bilirubin, Total 0.8 mg/dL (0.2-1.2); Protein, Total 5.8 g/dL (6.0-8.3)
[2017-12-11] MEDS: Warfarin Sodium 5 MG TAB PO SCH (17:57)
--- NOTE | 2017-12-11 19:23 | ULT ---
GALLBLADDER ULTRASOUND: 12/11/17 HISTORY: Right upper quadrant pain. Real time imaging of the right upper quadrant demonstrates a normal appearing gallbladder. Common fran t is 5 to 6 mm. Technologist reports a negative ultrasound Clement's sign. The liver measures 16 cm in length. The pancreas is obscured. Right kidney is normal in size and not obstructed. IMPRESSION: Unremarkable right upper quadrant ultrasound. POS: [facility]
--- NOTE | 2017-12-11 20:30 | PDOC.PN ---
- Subjective Encounter Start Date: 12/10/17 Encounter Start Time: 13:30 Subjective: pt up in bed no complains - Objective Vital Signs & Weight: Vital Signs (12 hours) Temp Pulse Pulse Pulse Resp BP BP 12/11/17 19:43 98.8 F 48 L 29 H 12/11/17 16:00 98.2 F 45 L 18 12/11/17 11:33 52 L 50 L 178/62 H 177/57 H 12/11/17 11:00 98.1 F 49 L 22 H 12/11/17 08:34 51 L BP Pulse Ox Pulse Ox 12/11/17 19:43 194/60 H 97 12/11/17 16:00 184/63 H 97 12/11/17 11:33 100 12/11/17 11:00 178/62 H 98 12/11/17 08:34 Weight Admit Weight 203 lb Weight 204 lb 8 oz I&O: 12/10/17 12/11/17 12/12/17 06:59 06:59 06:59 Intake Total 2811 1425 800 Output Total 1025 1550 75 Balance 1786 -125 725 Result Diagrams: 12/11/17 03:47 12/11/17 03:47 Additional Labs: Accuchecks 12/11/17 12/11/17 12/11/17 20:15 17:11 10:48 POC Glucose 168 H 163 H 175 H 12/11/17 12/10/17 05:36 20:27 POC Glucose 207 H 152 H Phys Exam - Physical Examination HEENT: PERRLA, moist MMs, sclera anicteric, TM's clear, oral pharynx no lesions , 2+ tonsils Neck: no nodes, no JVD, supple, full ROM Respiratory: no wheezing, no rales, no rhonchi, wheezing present, clear to auscultation bilateral Cardiovascular: RRR, no significant murmur, no rub, gallop, irregular Gastrointestinal: soft, non-tender, no distention, positive bowel sounds Musculoskeletal: no edema, pulses present, edema present right knee dressing intact Dx/Plan (1) AV dissociation Code(s): I45.89 - OTHER SPECIFIED CONDUCTION DISORDERS Status: Acute (2) DM type 2 (diabetes mellitus, type 2) Status: Chronic Qualifiers: Diabetes mellitus nursing home insulin use: without nursing home use Diabetes mellitus complication status: without complication Qualified Code(s): E11.9 - Type 2 diabetes mellitus without complications (3) Acute on chronic diastolic heart failure Code(s): I50.33 - ACUTE ON CHRONIC DIASTOLIC (CONGESTIVE) HEART FAILURE Status : Acute (4) Nausea & vomiting Code(s): R11.2 - NAUSEA WITH VOMITING, UNSPECIFIED Status: Acute - Plan pt up in bed no complains -: pt has been having bm * . Review of Systems - Review of Systems Respiratory: negative: Cough, Dry, Shortness of Breath, Hemoptysis, SOB with Excertion, Pleuritic Pain, Sputum, Wheezing Cardiovascular: negative: chest pain, palpitations, orthopnea, paroxysmal nocturnal dyspnea, edema, light headedness, other Gastrointestinal: Nausea Genitourinary: negative: Dysuria, Frequency, Incontinence, Hematuria, Retention , Other - Medications/Allergies Allergies/Adverse Reactions: Allergies Allergy/AdvReac Type Severity Reaction Status Date / Time banana Allergy Verified 12/07/17 12:15 lactase [From Dairy Aid] Allergy Verified 12/02/17 13:18 CHOCOLATE Allergy Uncoded 07/02/16 16:16 ORANGES Allergy Uncoded 07/02/16 16:16 Medications: Current Medications Acetaminophen (Tylenol) 650 mg PO Q4H PRN PRN Reason: HENNING/ T > 101F; Mild Pain (1-3) Hydrocodone Bitart/Acetaminophen ([place] 10/325) 1 tab PO Q4H PRN PRN Reason: Moderate Pain (4-6) Last Admin: 12/07/17 19:38 Dose: 1 tab Hydrocodone Bitart/Acetaminophen ([place] 10/325) 2 tab PO Q4H PRN PRN Reason: Severe Pain (7-10) Last Admin: 12/08/17 06:49 Dose: 2 tab Acidophilus (Floranex) 1 tab PO DAILY [facility] Last Admin: 12/11/17 08:34 Dose: 1 tab Atorvastatin Calcium (Lipitor) 20 mg PO [facility] Last Admin: 12/10/17 20:40 Dose: 20 mg Calcium Carbonate (Caltrate) 600 mg PO DAILY [facility] Last Admin: 12/11/17 08:46 Dose: 600 mg Diphenhydramine HCl (Benadryl) 25 mg PO Q6H PRN PRN Reason: Itching Enoxaparin Sodium (Lovenox) 40 mg SC 0900 [facility] Last Admin: 12/11/17 08:33 Dose: 40 mg Fentanyl (Sublimaze) 50 mcg SLOW IVP Q30MIN PRN PRN Reason: Moderate Pain (4-6) Fentanyl (Sublimaze) 100 mcg SLOW IVP Q1H PRN PRN Reason: Severe Pain (7-10) Ferrous Gluconate (Fergon) 324 mg PO BID [facility] Last Admin: 12/11/17 08:33 Dose: 324 mg Fish Oil (Fish Oil) 1,000 mg PO DAILY [facility] Last Admin: 12/11/17 08:33 Dose: 1,000 mg Furosemide (Lasix) 40 mg PO DAILY [facility] Last Admin: 12/11/17 08:33 Dose: 40 mg Hydralazine HCl (Apresoline) 10 mg SLOW IVP Q4H PRN PRN Reason: SBP Greater Than 170 Last Admin: 12/11/17 03:03 Dose: 10 mg Ropivacaine 250 ml/ Device 250 mls @ 0 mls/hr NERVE BLCK INF [facility] PRN Reason: As Directed Last Admin: 12/09/17 13:28 Dose: 250 mls Insulin Glargine 18 units/ (Miscellaneous Medication) 0.18 mls @ 0 mls/hr SC [facility] Last Admin: 12/10/17 20:41 Dose: Not Given Potassium Chloride 40 meq/ (Sodium Chloride) 270 mls @ 135 mls/hr IVPB ASDIR PRN PRN Reason: FOR SERUM K+ 2.5 - 3.5 Potassium Chloride 40 meq/ (Device) 100 mls @ 50 mls/hr IVPB ASDIR PRN PRN Reason: FOR SERUM K+ 2.5 - 3.5 Magnesium Sulfate 1 gm/ Sodium (Chloride) 102 mls @ 102 mls/hr IV PRN PRN PRN Reason: MAG LEVEL 1.4 - 2.0 Magnesium Sulfate 2 gm/ Device 100 mls @ 100 mls/hr IVPB ASDIR PRN PRN Reason: MAGNESIUM < 1.4 Potassium Phosphate 9 mmol/ (Sodium Chloride) 103 mls @ 25.75 mls/hr IVPB ASDIR PRN PRN Reason: Phosphate 1.0-1.8 Potassium Phosphate 12 mmol/ (Sodium Chloride) 254 mls @ 63.5 mls/hr IV ASDIR PRN PRN Reason: Serum phosphate 0.5-0.9 Potassium Phosphate 15 mmol/ (Sodium Chloride) 255 mls @ 63.75 mls/hr IV ASDIR PRN PRN Reason: Serum Phos < 0.5 Iron/Minerals/Multivitamins (Theragran M) 1 tab PO DAILY [facility] Last Admin: 12/11/17 08:34 Dose: 1 tab Losartan Potassium (Cozaar) 100 mg PO DAILY [facility] Last Admin: 12/11/17 08:34 Dose: 100 mg Losartan Potassium (Cozaar) 100 mg PO QAM [facility] Last Admin: 12/11/17 07:31 Dose: Not Given Magnesium Oxide (Magnesium Oxide) 400 mg PO BIDPRN PRN PRN Reason: FOR SERUM MAG 1.4 - 2.0 Last Admin: 12/11/17 17:57 Dose: 400 mg Magnesium Oxide (Magnesium Oxide) 800 mg PO PRN PRN PRN Reason: FOR SERUM MAG < 1.4 Metoclopramide HCl (Reglan) 10 mg IVP Q8HR [facility] Stop: 12/12/17 23:59 Miscellaneous Medication (Phos-Nak) 1 pkt PO TIDPRN PRN PRN Reason: FOR PHOS LEVEL 1.0 - 1.8 Miscellaneous Medication (Phos-Nak) 2 pkt PO TIDPRN PRN PRN Reason: FOR PHOS LEVEL 0.5 - 1.0 Miscellaneous Medication (Pharmacy To Dose) 1 each PO .WARFARIN [facility] Nifedipine (Procardia Xl) 30 mg PO BID [facility] Last Admin: 12/11/17 08:34 Dose: 30 mg Ccu Electrolyte (Replacement Protocol) 0 each FS PRN PRN PRN Reason: FOR ELECTROLYTE REPLACEMENT Ondansetron HCl (Zofran) 4 mg IVP Q6H PRN PRN Reason: Nausea/Vomiting Last Admin: 12/11/17 12:41 Dose: 4 mg Pantoprazole Sodium (Protonix) 40 mg PO DAILY [facility] Last Admin: 12/11/17 08:34 Dose: 40 mg Potassium Chloride (K-Dur) 40 meq PO ASDIR PRN PRN Reason: FOR SERUM K+ 2.5 - 3.5 Last Admin: 12/11/17 08:35 Dose: 40 meq Potassium Chloride (Klor-Con) 40 meq PER TUBE ASDIR PRN PRN Reason: FOR SERUM K+ 2.5-3.5 Promethazine HCl (Phenergan) 12.5 mg IM Q4H PRN PRN Reason: Nausea/Vomiting Psyllium Hydrophilic Mucilloid (Metamucil) 1 pk PO DAILY [facility] Last Admin: 12/11/17 08:34 Dose: Not Given Senna/Docusate Sodium (Senokot S) 2 tab PO BID [facility] Last Admin: 12/11/17 08:34 Dose: 2 tab Sodium Chloride (Flush - Normal Saline) 10 ml IVF Q12HR [facility] Last Admin: 12/11/17 08:35 Dose: Not Given Sodium Chloride (Flush - Normal Saline) 10 ml IVF PRN PRN PRN Reason: Saline Flush Tramadol HCl (Ultram) 100 mg PO Q6H PRN PRN Reason: Mild Pain (1-3) Last Admin: 12/11/17 19:12 Dose: 100 mg Warfarin Sodium (Coumadin) 5 mg PO 1700 [facility] Last Admin: 12/11/17 17:57 Dose: 5 mg Zolpidem Tartrate (Ambien) 5 mg PO HSPRN PRN PRN Reason: Insomnia
--- NOTE | 2017-12-11 20:33 | PDOC.PN ---
- Subjective Encounter Start Date: 12/11/17 Encounter Start Time: 13:30 Subjective: pt up in bed still having n/v - Objective Vital Signs & Weight: Vital Signs (12 hours) Temp Pulse Pulse Pulse Resp BP BP 12/11/17 19:43 98.8 F 48 L 29 H 12/11/17 16:00 98.2 F 45 L 18 12/11/17 11:33 52 L 50 L 178/62 H 177/57 H 12/11/17 11:00 98.1 F 49 L 22 H 12/11/17 08:34 51 L BP Pulse Ox Pulse Ox 12/11/17 19:43 194/60 H 97 12/11/17 16:00 184/63 H 97 12/11/17 11:33 100 12/11/17 11:00 178/62 H 98 12/11/17 08:34 Weight Admit Weight 203 lb Weight 204 lb 8 oz I&O: 12/10/17 12/11/17 12/12/17 06:59 06:59 06:59 Intake Total 2811 1425 800 Output Total 1025 1550 75 Balance 1786 -125 725 Result Diagrams: 12/11/17 03:47 12/11/17 03:47 Additional Labs: Accuchecks 12/11/17 12/11/17 12/11/17 20:15 17:11 10:48 POC Glucose 168 H 163 H 175 H 12/11/17 12/10/17 05:36 20:27 POC Glucose 207 H 152 H Phys Exam - Physical Examination HEENT: PERRLA, moist MMs, sclera anicteric, TM's clear, oral pharynx no lesions , 2+ tonsils Neck: no nodes, no JVD, supple, full ROM Respiratory: no wheezing, no rales, no rhonchi, wheezing present, clear to auscultation bilateral Cardiovascular: RRR, no significant murmur, no rub, gallop, irregular Gastrointestinal: soft, non-tender, no distention, positive bowel sounds Musculoskeletal: no edema, pulses present, edema present Dx/Plan (1) AV dissociation Code(s): I45.89 - OTHER SPECIFIED CONDUCTION DISORDERS Status: Acute (2) DM type 2 (diabetes mellitus, type 2) Status: Chronic Qualifiers: Diabetes mellitus snf insulin use: without snf use Diabetes mellitus complication status: without complication Qualified Code(s): E11.9 - Type 2 diabetes mellitus without complications (3) Acute on chronic diastolic heart failure Code(s): I50.33 - ACUTE ON CHRONIC DIASTOLIC (CONGESTIVE) HEART FAILURE Status : Acute (4) Nausea & vomiting Code(s): R11.2 - NAUSEA WITH VOMITING, UNSPECIFIED Status: Acute - Plan pt started on coumadin -: continue to hold sotalol, -: will get a RUQ ultrasond since pt has no issues eating prior to surgery -: will add lfts, possible gastroparesis given her being a DM * . Review of Systems - Review of Systems ENT: negative: Ear Pain, Ear Discharge, Nose Pain, Nose Discharge, Nose Congestion, Mouth Pain, Mouth Swelling, Throat Pain, Throat Swelling, Other Respiratory: negative: Cough, Dry, Shortness of Breath, Hemoptysis, SOB with Excertion, Pleuritic Pain, Sputum, Wheezing Cardiovascular: negative: chest pain, palpitations, orthopnea, paroxysmal nocturnal dyspnea, edema, light headedness, other Gastrointestinal: Nausea, Vomiting Genitourinary: negative: Dysuria, Frequency, Incontinence, Hematuria, Retention , Other - Medications/Allergies Allergies/Adverse Reactions: Allergies Allergy/AdvReac Type Severity Reaction Status Date / Time banana Allergy Verified 12/07/17 12:15 lactase [From Dairy Aid] Allergy Verified 12/02/17 13:18 CHOCOLATE Allergy Uncoded 07/02/16 16:16 ORANGES Allergy Uncoded 07/02/16 16:16 Medications: Current Medications Acetaminophen (Tylenol) 650 mg PO Q4H PRN PRN Reason: HENNING/ T > 101F; Mild Pain (1-3) Hydrocodone Bitart/Acetaminophen ([place] 10/325) 1 tab PO Q4H PRN PRN Reason: Moderate Pain (4-6) Last Admin: 12/07/17 19:38 Dose: 1 tab Hydrocodone Bitart/Acetaminophen ([place] 10/325) 2 tab PO Q4H PRN PRN Reason: Severe Pain (7-10) Last Admin: 12/08/17 06:49 Dose: 2 tab Acidophilus (Floranex) 1 tab PO DAILY [facility] Last Admin: 12/11/17 08:34 Dose: 1 tab Atorvastatin Calcium (Lipitor) 20 mg PO HS [facility] Last Admin: 12/10/17 20:40 Dose: 20 mg Calcium Carbonate (Caltrate) 600 mg PO DAILY [facility] Last Admin: 12/11/17 08:46 Dose: 600 mg Diphenhydramine HCl (Benadryl) 25 mg PO Q6H PRN PRN Reason: Itching Enoxaparin Sodium (Lovenox) 40 mg SC 0900 [facility] Last Admin: 12/11/17 08:33 Dose: 40 mg Fentanyl (Sublimaze) 50 mcg SLOW IVP Q30MIN PRN PRN Reason: Moderate Pain (4-6) Fentanyl (Sublimaze) 100 mcg SLOW IVP Q1H PRN PRN Reason: Severe Pain (7-10) Ferrous Gluconate (Fergon) 324 mg PO BID [facility] Last Admin: 12/11/17 08:33 Dose: 324 mg Fish Oil (Fish Oil) 1,000 mg PO DAILY [facility] Last Admin: 12/11/17 08:33 Dose: 1,000 mg Furosemide (Lasix) 40 mg PO DAILY [facility] Last Admin: 12/11/17 08:33 Dose: 40 mg Hydralazine HCl (Apresoline) 10 mg SLOW IVP Q4H PRN PRN Reason: SBP Greater Than 170 Last Admin: 12/11/17 03:03 Dose: 10 mg Ropivacaine 250 ml/ Device 250 mls @ 0 mls/hr NERVE BLCK INF [facility] PRN Reason: As Directed Last Admin: 12/09/17 13:28 Dose: 250 mls Insulin Glargine 18 units/ (Miscellaneous Medication) 0.18 mls @ 0 mls/hr SC [facility] Last Admin: 12/10/17 20:41 Dose: Not Given Potassium Chloride 40 meq/ (Sodium Chloride) 270 mls @ 135 mls/hr IVPB ASDIR PRN PRN Reason: FOR SERUM K+ 2.5 - 3.5 Potassium Chloride 40 meq/ (Device) 100 mls @ 50 mls/hr IVPB ASDIR PRN PRN Reason: FOR SERUM K+ 2.5 - 3.5 Magnesium Sulfate 1 gm/ Sodium (Chloride) 102 mls @ 102 mls/hr IV PRN PRN PRN Reason: MAG LEVEL 1.4 - 2.0 Magnesium Sulfate 2 gm/ Device 100 mls @ 100 mls/hr IVPB ASDIR PRN PRN Reason: MAGNESIUM < 1.4 Potassium Phosphate 9 mmol/ (Sodium Chloride) 103 mls @ 25.75 mls/hr IVPB ASDIR PRN PRN Reason: Phosphate 1.0-1.8 Potassium Phosphate 12 mmol/ (Sodium Chloride) 254 mls @ 63.5 mls/hr IV ASDIR PRN PRN Reason: Serum phosphate 0.5-0.9 Potassium Phosphate 15 mmol/ (Sodium Chloride) 255 mls @ 63.75 mls/hr IV ASDIR PRN PRN Reason: Serum Phos < 0.5 Iron/Minerals/Multivitamins (Theragran M) 1 tab PO DAILY [facility] Last Admin: 12/11/17 08:34 Dose: 1 tab Losartan Potassium (Cozaar) 100 mg PO DAILY [facility] Last Admin: 12/11/17 08:34 Dose: 100 mg Losartan Potassium (Cozaar) 100 mg PO QAM [facility] Last Admin: 12/11/17 07:31 Dose: Not Given Magnesium Oxide (Magnesium Oxide) 400 mg PO BIDPRN PRN PRN Reason: FOR SERUM MAG 1.4 - 2.0 Last Admin: 12/11/17 17:57 Dose: 400 mg Magnesium Oxide (Magnesium Oxide) 800 mg PO PRN PRN PRN Reason: FOR SERUM MAG < 1.4 Metoclopramide HCl (Reglan) 10 mg IVP Q8HR [facility] Stop: 12/12/17 23:59 Miscellaneous Medication (Phos-Nak) 1 pkt PO TIDPRN PRN PRN Reason: FOR PHOS LEVEL 1.0 - 1.8 Miscellaneous Medication (Phos-Nak) 2 pkt PO TIDPRN PRN PRN Reason: FOR PHOS LEVEL 0.5 - 1.0 Miscellaneous Medication (Pharmacy To Dose) 1 each PO .WARFARIN [facility] Nifedipine (Procardia Xl) 30 mg PO BID [facility] Last Admin: 12/11/17 08:34 Dose: 30 mg Ccu Electrolyte (Replacement Protocol) 0 each FS PRN PRN PRN Reason: FOR ELECTROLYTE REPLACEMENT Ondansetron HCl (Zofran) 4 mg IVP Q6H PRN PRN Reason: Nausea/Vomiting Last Admin: 12/11/17 12:41 Dose: 4 mg Pantoprazole Sodium (Protonix) 40 mg PO DAILY [facility] Last Admin: 12/11/17 08:34 Dose: 40 mg Potassium Chloride (K-Dur) 40 meq PO ASDIR PRN PRN Reason: FOR SERUM K+ 2.5 - 3.5 Last Admin: 12/11/17 08:35 Dose: 40 meq Potassium Chloride (Klor-Con) 40 meq PER TUBE ASDIR PRN PRN Reason: FOR SERUM K+ 2.5-3.5 Promethazine HCl (Phenergan) 12.5 mg IM Q4H PRN PRN Reason: Nausea/Vomiting Psyllium Hydrophilic Mucilloid (Metamucil) 1 pk PO DAILY [facility] Last Admin: 12/11/17 08:34 Dose: Not Given Senna/Docusate Sodium (Senokot S) 2 tab PO BID [facility] Last Admin: 12/11/17 08:34 Dose: 2 tab Sodium Chloride (Flush - Normal Saline) 10 ml IVF Q12HR [facility] Last Admin: 12/11/17 08:35 Dose: Not Given Sodium Chloride (Flush - Normal Saline) 10 ml IVF PRN PRN PRN Reason: Saline Flush Tramadol HCl (Ultram) 100 mg PO Q6H PRN PRN Reason: Mild Pain (1-3) Last Admin: 12/11/17 19:12 Dose: 100 mg Warfarin Sodium (Coumadin) 5 mg PO 1700 [facility] Last Admin: 12/11/17 17:57 Dose: 5 mg Zolpidem Tartrate (Ambien) 5 mg PO HSPRN PRN PRN Reason: Insomnia
[2017-12-11] MEDS: Insulin Glargine 18 UNITS in Pre-Filled Syringe 1 EACH SC SCH (20:53)
[2017-12-11] MEDS: Atorvastatin Calcium 20 MG TAB PO SCH (20:53)
[2017-12-11] MEDS: Metoclopramide HCl 10 MG/2 ML VIAL IVP SCH (21:06)
[2017-12-12 04:21] LABS: Hemoglobin 11.7 g/dL (12.0-16.0); Mean Corpuscular HGB CONC 33.2 g/dL (32.0-36.0); Mean Corpuscular Hemoglobin 29.3 pg (27.0-31.0); Mean Corpuscular Volume 88.3 fL (78.0-98.0); Platelet Count 281 thou/uL (130-400); RBC Distribution Width 13.1 % (11.5-14.5); White Blood Cell (WBC) Count 11.2 thou/uL (4.8-10.8)
[2017-12-12 04:22] LABS: INR-International Normal Ratio 1.4; Prothrombin Time 17.3 SEC (12.0-14.7)
[2017-12-12 04:33] LABS: Anion Gap 13 mmol/L (10-20); BUN (Urea Nitrogen) 24 mg/dL (9.8-20.1); Calc. Creatinine Clearance 81 mL/min (70-130); Calcium 8.8 mg/dL (7.8-10.44); Carbon Dioxide 24 mmol/L (23-31); Chloride 106 mmol/L (98-107); Estimated GFR-MDRD 71; Glucose 127 mg/dL (83-110); Potassium 3.2 mmol/L (3.5-5.1); Sodium 140 mmol/L (136-145)
[2017-12-12] MEDS: Metoclopramide HCl 10 MG/2 ML VIAL IVP SCH ×3 (05:45→22:17)
[2017-12-12] MEDS: traMADol HCl 50 MG TAB PO PRN (06:36)
[2017-12-12] MEDS ORDERED: NS 0.9% w/ 40 MEQ KCL 1,000 ML IV SCH (07:45)
--- NOTE | 2017-12-12 07:57 | PDOC.CTH ---
Cardiology Progress Note - Subjective Doing well. States she is weak. BP remains elevated. HR stable. - Objective Vital Signs Temp Pulse Resp BP BP Pulse Ox 12/12/17 07:00 98.5 F 52 L 22 H 198/73 H 96 12/12/17 04:34 98.8 F 51 L 12 178/59 H 95 12/12/17 01:14 97 12/12/17 00:25 97.0 F L 45 L 22 H 174/53 H 97 12/11/17 20:53 48 L 175/58 H 12/11/17 20:00 98.8 F 48 L 22 H 97 Admit Weight 203 lb Weight 206 lb 6.4 oz 12/11/17 12/12/17 12/13/17 06:59 06:59 06:59 Intake Total 1425 1050 Output Total 1550 400 Balance -125 650 - Physical Examination General/Neuro: alert & oriented x3, NAD Neck: carotid US brisk, no JVD present Lungs: CTA, unlabored respirations Heart: RRR Abdomen: NT/ND, soft Extremities: + femoral B - Labs Result Diagrams: 12/12/17 03:48 12/12/17 03:48 Troponin/CKMB CK-MB (CK-2) 1.2 ng/mL (0-6.6) 12/11/17 10:05 Troponin I 0.122 ng/mL (< 0.028) H 12/11/17 10:05 - Assessment/Plan 1. afib 2. Transient HB 3. distolic dysfunction 4. s/p knee surgery 5. Mild to moderate 6. HTN Stop losartan Add benicar and HCTZ Stop lasix Comadin per pharmacy PT
[2017-12-12] MEDS: Fish Oil 1,000 MG CAP PO SCH (09:29)
[2017-12-12] MEDS: Calcium Carbonate 600 MG TAB PO SCH (09:29)
[2017-12-12] MEDS: Lactinex Tablet PO SCH (09:29)
[2017-12-12] MEDS: HYDROcodone/Acetaminophen 10/325 mg Tablet PO PRN ×2 (09:30→22:15)
[2017-12-12] MEDS: Ferrous Gluconate 324 MG TAB PO SCH ×2 (09:30→22:16)
[2017-12-12] MEDS: Multivitamin W/ Minerals 1 TAB PO SCH (09:30)
[2017-12-12] MEDS: Hydrochlorothiazide 25 MG TAB PO SCH (09:31)
[2017-12-12] MEDS: NIFEdipine XL 30 MG TAB PO SCH ×2 (09:31→22:14)
[2017-12-12] MEDS: Enoxaparin Sodium 40 MG/0.4 ML SYRINGE SC SCH (09:32)
[2017-12-12] MEDS: Metamucil PACK PO SCH (09:36)
[2017-12-12] MEDS: Senokot S 8.6-50 MG TAB PO SCH ×2 (09:37→21:15)
[2017-12-12] MEDS ORDERED: Dextrose 5% in Water 1,000 ML IV PRN (17:14)
[2017-12-12] MEDS ORDERED: HumaLOG 300 UNITS/3 ML VIAL SC PRN (17:14)
[2017-12-12] MEDS ORDERED: Dextrose 50% Abboject 50 ML SYRINGE IVP PRN (17:14)
[2017-12-12] MEDS: HumaLOG 300 UNITS/3 ML VIAL SC PRN (17:25)
[2017-12-12] MEDS: Warfarin Sodium 5 MG TAB PO SCH (17:26)
--- NOTE | 2017-12-12 18:29 | PDOC.PN ---
- Subjective Encounter Start Date: 12/12/17 Encounter Start Time: 12:30 Subjective: pt up in bed states she feels better now - Objective Vital Signs & Weight: Vital Signs (12 hours) Temp Pulse Pulse Pulse Resp BP BP 12/12/17 16:00 97.7 F 50 L 20 12/12/17 11:00 98.0 F 49 L 18 12/12/17 10:13 55 L 54 L 179/59 H 12/12/17 09:31 53 L 185/67 H 12/12/17 08:00 98.5 F 52 L 22 H 12/12/17 07:00 98.5 F 52 L 22 H BP BP Pulse Ox Pulse Ox Pulse Ox 12/12/17 16:00 190/64 H 97 12/12/17 11:00 184/69 H 100 12/12/17 10:13 152/59 H 100 98 12/12/17 09:31 12/12/17 08:00 97 12/12/17 07:00 198/73 H 96 Weight Admit Weight 203 lb Weight 206 lb 6.4 oz I&O: 12/11/17 12/12/17 12/13/17 06:59 06:59 06:59 Intake Total 1425 1050 480 Output Total 1550 400 200 Balance -125 650 280 Result Diagrams: 12/12/17 03:48 12/12/17 03:48 Additional Labs: Accuchecks 12/12/17 12/12/17 12/12/17 16:37 11:01 06:08 POC Glucose 237 H 208 H 128 H 12/11/17 20:15 POC Glucose 168 H Phys Exam - Physical Examination HEENT: PERRLA, moist MMs, sclera anicteric, TM's clear, oral pharynx no lesions , 2+ tonsils Neck: no nodes, no JVD, supple, full ROM Respiratory: no wheezing, no rales, no rhonchi, wheezing present, clear to auscultation bilateral Cardiovascular: RRR, no significant murmur, no rub, gallop, irregular Gastrointestinal: soft, non-tender, no distention, positive bowel sounds Dx/Plan (1) AV dissociation Code(s): I45.89 - OTHER SPECIFIED CONDUCTION DISORDERS Status: Acute (2) DM type 2 (diabetes mellitus, type 2) Status: Chronic Qualifiers: Diabetes mellitus group home insulin use: without professional bass fisher use Diabetes mellitus complication status: without complication Qualified Code(s): E11.9 - Type 2 diabetes mellitus without complications (3) Acute on chronic diastolic heart failure Code(s): I50.33 - ACUTE ON CHRONIC DIASTOLIC (CONGESTIVE) HEART FAILURE Status : Acute (4) Nausea & vomiting Code(s): R11.2 - NAUSEA WITH VOMITING, UNSPECIFIED Status: Acute - Plan pt tolerating po well now. RUQ ultrasound normal -: will conitnue dvt ppx until theraputic inr -: pt's bp meds changed by cardio. * . Review of Systems - Review of Systems Respiratory: negative: Cough, Dry, Shortness of Breath, Hemoptysis, SOB with Excertion, Pleuritic Pain, Sputum, Wheezing Cardiovascular: negative: chest pain, palpitations, orthopnea, paroxysmal nocturnal dyspnea, edema, light headedness, other Gastrointestinal: negative: Nausea, Vomiting, Abdominal Pain, Diarrhea, Constipation, Melena, Hematochezia, Other Genitourinary: negative: Dysuria, Frequency, Incontinence, Hematuria, Retention , Other - Medications/Allergies Allergies/Adverse Reactions: Allergies Allergy/AdvReac Type Severity Reaction Status Date / Time banana Allergy Verified 12/07/17 12:15 lactase [From Dairy Aid] Allergy Verified 12/02/17 13:18 CHOCOLATE Allergy Uncoded 07/02/16 16:16 ORANGES Allergy Uncoded 07/02/16 16:16 Medications: Current Medications Acetaminophen (Tylenol) 650 mg PO Q4H PRN PRN Reason: HENNING/ T > 101F; Mild Pain (1-3) Hydrocodone Bitart/Acetaminophen ([place] 10/325) 1 tab PO Q4H PRN PRN Reason: Moderate Pain (4-6) Last Admin: 12/12/17 09:30 Dose: 1 tab Hydrocodone Bitart/Acetaminophen ([place] 10/325) 2 tab PO Q4H PRN PRN Reason: Severe Pain (7-10) Last Admin: 12/08/17 06:49 Dose: 2 tab Acidophilus (Floranex) 1 tab PO DAILY [facility] Last Admin: 12/12/17 09:29 Dose: 1 tab Atorvastatin Calcium (Lipitor) 20 mg PO [facility] Last Admin: 12/11/17 20:53 Dose: 20 mg Calcium Carbonate (Caltrate) 600 mg PO DAILY [facility] Last Admin: 12/12/17 09:29 Dose: 600 mg Dextrose/Water (Dextrose 50%) 25 gm IVP PRN PRN PRN Reason: HYPOGLYCEMIA PROTOCOL Diphenhydramine HCl (Benadryl) 25 mg PO Q6H PRN PRN Reason: Itching Enoxaparin Sodium (Lovenox) 40 mg SC 0900 [facility] Last Admin: 12/12/17 09:32 Dose: 40 mg Fentanyl (Sublimaze) 50 mcg SLOW IVP Q30MIN PRN PRN Reason: Moderate Pain (4-6) Fentanyl (Sublimaze) 100 mcg SLOW IVP Q1H PRN PRN Reason: Severe Pain (7-10) Ferrous Gluconate (Fergon) 324 mg PO BID [facility] Last Admin: 12/12/17 09:30 Dose: 324 mg Fish Oil (Fish Oil) 1,000 mg PO DAILY [facility] Last Admin: 12/12/17 09:29 Dose: 1,000 mg Glucagon (Glucagon) 1 mg IM PRN PRN PRN Reason: HYPOGLYCEMIA PROTOCOL Hydralazine HCl (Apresoline) 10 mg SLOW IVP Q4H PRN PRN Reason: SBP Greater Than 170 Last Admin: 12/11/17 03:03 Dose: 10 mg Hydrochlorothiazide (Hydrochlorothiazide) 25 mg PO DAILY [facility] Last Admin: 12/12/17 09:31 Dose: 25 mg Ropivacaine 250 ml/ Device 250 mls @ 0 mls/hr NERVE BLCK INF [facility] PRN Reason: As Directed Last Admin: 12/09/17 13:28 Dose: 250 mls Insulin Glargine 18 units/ (Miscellaneous Medication) 0.18 mls @ 0 mls/hr SC [facility] Last Admin: 12/11/17 20:53 Dose: 0.18 mls Potassium Chloride 40 meq/ (Sodium Chloride) 270 mls @ 135 mls/hr IVPB ASDIR PRN PRN Reason: FOR SERUM K+ 2.5 - 3.5 Potassium Chloride 40 meq/ (Device) 100 mls @ 50 mls/hr IVPB ASDIR PRN PRN Reason: FOR SERUM K+ 2.5 - 3.5 Magnesium Sulfate 1 gm/ Sodium (Chloride) 102 mls @ 102 mls/hr IV PRN PRN PRN Reason: MAG LEVEL 1.4 - 2.0 Magnesium Sulfate 2 gm/ Device 100 mls @ 100 mls/hr IVPB ASDIR PRN PRN Reason: MAGNESIUM < 1.4 Potassium Phosphate 9 mmol/ (Sodium Chloride) 103 mls @ 25.75 mls/hr IVPB ASDIR PRN PRN Reason: Phosphate 1.0-1.8 Potassium Phosphate 12 mmol/ (Sodium Chloride) 254 mls @ 63.5 mls/hr IV ASDIR PRN PRN Reason: Serum phosphate 0.5-0.9 Potassium Phosphate 15 mmol/ (Sodium Chloride) 255 mls @ 63.75 mls/hr IV ASDIR PRN PRN Reason: Serum Phos < 0.5 Potassium Chloride/Sodium Chloride (Ns 0.9% W/ 40 Meq Kcl) 1,000 mls @ 75 mls/ hr IV .[id number] [facility] Stop: 12/12/17 21:04 Last Admin: 12/12/17 10:02 Dose: 1,000 mls Dextrose/Water (D5w) 1,000 mls @ 0 mls/hr IV INF PRN; As Directed PRN Reason: HYPOGLYCEMIA PROTOCOL Insulin Human Lispro (Humalog) 0 units SC .MODERATE SLIDING SC PRN; Protocol PRN Reason: MODERATE SLIDING SCALE Last Admin: 12/12/17 17:25 Dose: 4 units Insulin Human Lispro (Humalog) 0 units SC .BEDTIME SLIDING SC PRN; Protocol PRN Reason: BEDTIME SLIDING SCALE Iron/Minerals/Multivitamins (Theragran M) 1 tab PO DAILY [facility] Last Admin: 12/12/17 09:30 Dose: 1 tab Magnesium Oxide (Magnesium Oxide) 400 mg PO BIDPRN PRN PRN Reason: FOR SERUM MAG 1.4 - 2.0 Last Admin: 12/11/17 17:57 Dose: 400 mg Magnesium Oxide (Magnesium Oxide) 800 mg PO PRN PRN PRN Reason: FOR SERUM MAG < 1.4 Metoclopramide HCl (Reglan) 10 mg IVP Q8HR [facility] Stop: 12/12/17 23:59 Last Admin: 12/12/17 14:51 Dose: 10 mg Miscellaneous Medication (Phos-Nak) 1 pkt PO TIDPRN PRN PRN Reason: FOR PHOS LEVEL 1.0 - 1.8 Miscellaneous Medication (Phos-Nak) 2 pkt PO TIDPRN PRN PRN Reason: FOR PHOS LEVEL 0.5 - 1.0 Miscellaneous Medication (Pharmacy To Dose) 1 each PO .WARFARIN [facility] Nifedipine (Procardia Xl) 30 mg PO BID [facility] Last Admin: 12/12/17 09:31 Dose: 30 mg Ccu Electrolyte (Replacement Protocol) 0 each FS PRN PRN PRN Reason: FOR ELECTROLYTE REPLACEMENT Olmesartan (Benicar) 20 mg PO DAILY [facility] Last Admin: 12/12/17 09:30 Dose: 20 mg Ondansetron HCl (Zofran) 4 mg IVP Q6H PRN PRN Reason: Nausea/Vomiting Last Admin: 12/11/17 12:41 Dose: 4 mg Pantoprazole Sodium (Protonix) 40 mg PO DAILY [facility] Last Admin: 12/12/17 09:31 Dose: 40 mg Potassium Chloride (K-Dur) 40 meq PO ASDIR PRN PRN Reason: FOR SERUM K+ 2.5 - 3.5 Last Admin: 12/11/17 08:35 Dose: 40 meq Potassium Chloride (Klor-Con) 40 meq PER TUBE ASDIR PRN PRN Reason: FOR SERUM K+ 2.5-3.5 Promethazine HCl (Phenergan) 12.5 mg IM Q4H PRN PRN Reason: Nausea/Vomiting Psyllium Hydrophilic Mucilloid (Metamucil) 1 pk PO DAILY [facility] Last Admin: 12/12/17 09:36 Dose: Not Given Senna/Docusate Sodium (Senokot S) 2 tab PO BID [facility] Last Admin: 12/12/17 09:37 Dose: Not Given Sodium Chloride (Flush - Normal Saline) 10 ml IVF Q12HR [facility] Last Admin: 12/12/17 09:37 Dose: 10 ml Sodium Chloride (Flush - Normal Saline) 10 ml IVF PRN PRN PRN Reason: Saline Flush Tramadol HCl (Ultram) 100 mg PO Q6H PRN PRN Reason: Mild Pain (1-3) Last Admin: 12/12/17 06:36 Dose: 100 mg Warfarin Sodium (Coumadin) 5 mg PO 1700 [facility] Last Admin: 12/12/17 17:26 Dose: 5 mg Zolpidem Tartrate (Ambien) 5 mg PO HSPRN PRN PRN Reason: Insomnia
[2017-12-12] MEDS: hydrALAZINE 20 MG/ML VIAL SLOW IVP PRN (18:47)
[2017-12-12] MEDS: Atorvastatin Calcium 20 MG TAB PO SCH (22:17)
[2017-12-12] MEDS: Insulin Glargine 18 UNITS in Pre-Filled Syringe 1 EACH SC SCH (22:18)
[2017-12-13] MEDS: HYDROcodone/Acetaminophen 10/325 mg Tablet PO PRN (03:33)
[2017-12-13 05:41] LABS: INR-International Normal Ratio 1.8; Prothrombin Time 21.3 SEC (12.0-14.7)
[2017-12-13] MEDS: hydrALAZINE 20 MG/ML VIAL SLOW IVP PRN ×2 (05:41→11:55)
[2017-12-13 05:46] LABS: Hemoglobin 11.3 g/dL (12.0-16.0); Mean Corpuscular HGB CONC 33.5 g/dL (32.0-36.0); Mean Corpuscular Hemoglobin 29.8 pg (27.0-31.0); Mean Corpuscular Volume 88.9 fL (78.0-98.0); Mean Platelet Volume 8.6 fL (7.4-10.4); Platelet Count 275 thou/uL (130-400); RBC Distribution Width 13.1 % (11.5-14.5); White Blood Cell (WBC) Count 9.1 thou/uL (4.8-10.8)
[2017-12-13 08:13] VITALS: BMI 39.9
[2017-12-13] MEDS: Enoxaparin Sodium 40 MG/0.4 ML SYRINGE SC SCH (09:03)
[2017-12-13] MEDS: HumaLOG 300 UNITS/3 ML VIAL SC PRN (09:03)
[2017-12-13] MEDS: Metamucil PACK PO SCH (09:04)
[2017-12-13] MEDS: Hydrochlorothiazide 25 MG TAB PO SCH (09:05)
[2017-12-13] MEDS: Lactinex Tablet PO SCH (09:05)
[2017-12-13] MEDS: Fish Oil 1,000 MG CAP PO SCH (09:05)
[2017-12-13] MEDS: Ferrous Gluconate 324 MG TAB PO SCH ×2 (09:06→20:26)
[2017-12-13] MEDS: Senokot S 8.6-50 MG TAB PO SCH ×2 (09:06→20:26)
[2017-12-13] MEDS: Multivitamin W/ Minerals 1 TAB PO SCH (09:06)
[2017-12-13] MEDS: Calcium Carbonate 600 MG TAB PO SCH (09:06)
[2017-12-13] MEDS: NIFEdipine XL 60 MG TAB PO SCH ×2 (09:10→20:25)
[2017-12-13 09:11] LABS: Anion Gap 12 mmol/L (10-20); BUN (Urea Nitrogen) 23 mg/dL (9.8-20.1); Calc. Creatinine Clearance 93 mL/min (70-130); Calcium 8.6 mg/dL (7.8-10.44); Carbon Dioxide 24 mmol/L (23-31); Chloride 107 mmol/L (98-107); Estimated GFR-MDRD 76; Glucose 129 mg/dL (83-110); Potassium 3.4 mmol/L (3.5-5.1); Sodium 140 mmol/L (136-145)
[2017-12-13] MEDS: traMADol HCl 50 MG TAB PO PRN (11:56)
--- NOTE | 2017-12-13 13:34 | EKG ---
Test Reason : STAT Blood Pressure : / mmHG Vent. Rate : 051 BPM Atrial Rate : 340 BPM P-R Int : 000 ms QRS Dur : 100 ms QT Int : 528 ms P-R-T Axes : 000 -28 064 degrees QTc Int : 486 ms Junctional rhythm with ventricular escape complexes Left ventricular hypertrophy with repolarization abnormality Septal infarct (cited on or before 02-DEC-2017) Abnormal ECG When compared with ECG of 09-DEC-2017 01:41, Previous ECG has undetermined rhythm, needs review QRS duration has decreased QT has lengthened Confirmed by RASHEED COLON, DR. Gupta ([id number]) on 12/13/2017 1:34:16 PM Referred By: Confirmed By:DR. Alonso IQBAL MD
[2017-12-13] MEDS: Acetaminophen 325 MG TAB PO PRN (13:51)
[2017-12-13] MEDS ORDERED: Potassium Chloride 20 MEQ TAB PO SCH (14:45)
[2017-12-13] MEDS ORDERED: hydrALAZINE 25 MG TAB PO SCH (16:00)
[2017-12-13] MEDS: Warfarin Sodium 5 MG TAB PO SCH (19:15)
[2017-12-13] MEDS: Insulin Glargine 18 UNITS in Pre-Filled Syringe 1 EACH SC SCH (20:23)
[2017-12-13] MEDS: Atorvastatin Calcium 20 MG TAB PO SCH (20:26)
[2017-12-14] MEDS: hydrALAZINE 20 MG/ML VIAL SLOW IVP PRN ×2 (00:02→11:34)
[2017-12-14] MEDS: Acetaminophen 325 MG TAB PO PRN (01:39)
[2017-12-14 06:10] LABS: Prothrombin Time 22.3 SEC (12.0-14.7)
[2017-12-14 06:15] LABS: Hemoglobin 11.5 g/dL (12.0-16.0); Mean Corpuscular HGB CONC 33.2 g/dL (32.0-36.0); Mean Corpuscular Hemoglobin 29.3 pg (27.0-31.0); Mean Corpuscular Volume 88.2 fL (78.0-98.0); Mean Platelet Volume 8.3 fL (7.4-10.4); Platelet Count 317 thou/uL (130-400); RBC Distribution Width 13.1 % (11.5-14.5); Red Blood Cell (RBC) Count 3.92 mill/uL (4.20-5.40); White Blood Cell (WBC) Count 11.3 thou/uL (4.8-10.8)
[2017-12-14] MEDS: Fish Oil 1,000 MG CAP PO SCH (08:45)
[2017-12-14] MEDS: Lactinex Tablet PO SCH (08:46)
[2017-12-14] MEDS: NIFEdipine XL 60 MG TAB PO SCH ×2 (08:46→21:06)
[2017-12-14] MEDS: Hydrochlorothiazide 25 MG TAB PO SCH (08:46)
[2017-12-14] MEDS: hydrALAZINE 25 MG TAB PO SCH ×3 (08:46→21:07)
[2017-12-14] MEDS: Ferrous Gluconate 324 MG TAB PO SCH ×2 (08:47→21:06)
[2017-12-14] MEDS: Senokot S 8.6-50 MG TAB PO SCH ×2 (08:47→22:31)
[2017-12-14] MEDS: Metamucil PACK PO SCH (08:47)
[2017-12-14] MEDS: Calcium Carbonate 600 MG TAB PO SCH (08:47)
[2017-12-14] MEDS: Multivitamin W/ Minerals 1 TAB PO SCH (08:47)
[2017-12-14] MEDS ORDERED: hydrALAZINE 25 MG TAB PO SCH (09:00)
[2017-12-14] MEDS: HumaLOG 300 UNITS/3 ML VIAL SC PRN (11:43)
[2017-12-14] MEDS: traMADol HCl 50 MG TAB PO PRN (11:46)
--- NOTE | 2017-12-14 15:47 | PDOC.PN ---
- Subjective Encounter Start Date: 12/13/17 Encounter Start Time: 10:30 Subjective: pt up in bed no complains - Objective Vital Signs & Weight: Vital Signs (12 hours) Temp Pulse Pulse Resp BP BP BP 12/14/17 15:31 85 167/72 H 12/14/17 12:50 85 156/90 H 12/14/17 11:34 57 L 188/77 H 12/14/17 11:25 68 188/77 H 12/14/17 11:15 12/14/17 11:11 68 22 H 188/77 H 12/14/17 08:46 57 L 195/83 H 12/14/17 07:09 96.5 F L 57 L 20 12/14/17 07:00 96.5 F L 57 L 20 195/83 H 12/14/17 04:00 98.1 F 52 L 18 149/72 H Pulse Ox 12/14/17 15:31 12/14/17 12:50 12/14/17 11:34 12/14/17 11:25 12/14/17 11:15 95 12/14/17 11:11 95 12/14/17 08:46 12/14/17 07:09 93 L 12/14/17 07:00 93 L 12/14/17 04:00 93 L Weight Admit Weight 203 lb Weight 215 lb 1 oz I&O: 12/13/17 12/14/17 12/15/17 06:59 06:59 06:59 Intake Total 955 850 Output Total 200 450 Balance 755 400 Result Diagrams: 12/14/17 05:32 12/14/17 15:22 Additional Labs: Accuchecks 12/14/17 12/14/17 12/13/17 10:51 05:51 20:21 POC Glucose 157 H 127 H 149 H 12/13/17 12/13/17 16:57 11:01 POC Glucose 195 H 172 H Phys Exam - Physical Examination HEENT: PERRLA, moist MMs, sclera anicteric, TM's clear, oral pharynx no lesions , 2+ tonsils Neck: no nodes, no JVD, supple, full ROM Respiratory: no wheezing, no rales, no rhonchi, wheezing present, clear to auscultation bilateral Cardiovascular: RRR, no significant murmur, no rub, gallop, irregular Gastrointestinal: soft, non-tender, no distention, positive bowel sounds Musculoskeletal: no edema, pulses present, edema present Dx/Plan (1) AV dissociation Code(s): I45.89 - OTHER SPECIFIED CONDUCTION DISORDERS Status: Acute (2) DM type 2 (diabetes mellitus, type 2) Status: Chronic Qualifiers: Diabetes mellitus intermediate insulin use: without middle or intermediate school principal use Diabetes mellitus complication status: without complication Qualified Code(s): E11.9 - Type 2 diabetes mellitus without complications (3) Acute on chronic diastolic heart failure Code(s): I50.33 - ACUTE ON CHRONIC DIASTOLIC (CONGESTIVE) HEART FAILURE Status : Acute (4) Nausea & vomiting Code(s): R11.2 - NAUSEA WITH VOMITING, UNSPECIFIED Status: Acute - Plan pt has no more nausea is tolerating po diet well -: inr is theraputic * . Review of Systems - Review of Systems ENT: negative: Ear Pain, Ear Discharge, Nose Pain, Nose Discharge, Nose Congestion, Mouth Pain, Mouth Swelling, Throat Pain, Throat Swelling, Other Respiratory: negative: Cough, Dry, Shortness of Breath, Hemoptysis, SOB with Excertion, Pleuritic Pain, Sputum, Wheezing Cardiovascular: negative: chest pain, palpitations, orthopnea, paroxysmal nocturnal dyspnea, edema, light headedness, other Gastrointestinal: negative: Nausea, Vomiting, Abdominal Pain, Diarrhea, Constipation, Melena, Hematochezia, Other - Medications/Allergies Allergies/Adverse Reactions: Allergies Allergy/AdvReac Type Severity Reaction Status Date / Time banana Allergy Verified 12/07/17 12:15 lactase [From Dairy Aid] Allergy Verified 12/02/17 13:18 CHOCOLATE Allergy Uncoded 07/02/16 16:16 ORANGES Allergy Uncoded 07/02/16 16:16 Medications: Current Medications Acetaminophen (Tylenol) 650 mg PO Q4H PRN PRN Reason: HENNING/ T > 101F; Mild Pain (1-3) Last Admin: 12/14/17 01:39 Dose: 650 mg Hydrocodone Bitart/Acetaminophen ([place] 10/325) 1 tab PO Q4H PRN PRN Reason: Moderate Pain (4-6) Last Admin: 12/13/17 03:33 Dose: 1 tab Hydrocodone Bitart/Acetaminophen ([place] 10/325) 2 tab PO Q4H PRN PRN Reason: Severe Pain (7-10) Last Admin: 12/08/17 06:49 Dose: 2 tab Acidophilus (Floranex) 1 tab PO DAILY [facility] Last Admin: 12/14/17 08:46 Dose: 1 tab Atorvastatin Calcium (Lipitor) 20 mg PO HS [facility] Last Admin: 12/13/17 20:26 Dose: 20 mg Calcium Carbonate (Caltrate) 600 mg PO DAILY [facility] Last Admin: 12/14/17 08:47 Dose: 600 mg Dextrose/Water (Dextrose 50%) 25 gm IVP PRN PRN PRN Reason: HYPOGLYCEMIA PROTOCOL Diphenhydramine HCl (Benadryl) 25 mg PO Q6H PRN PRN Reason: Itching Last Admin: 12/14/17 01:39 Dose: 25 mg Fentanyl (Sublimaze) 50 mcg SLOW IVP Q30MIN PRN PRN Reason: Moderate Pain (4-6) Fentanyl (Sublimaze) 100 mcg SLOW IVP Q1H PRN PRN Reason: Severe Pain (7-10) Ferrous Gluconate (Fergon) 324 mg PO BID [facility] Last Admin: 12/14/17 08:47 Dose: 324 mg Fish Oil (Fish Oil) 1,000 mg PO DAILY [facility] Last Admin: 12/14/17 08:45 Dose: 1,000 mg Glucagon (Glucagon) 1 mg IM PRN PRN PRN Reason: HYPOGLYCEMIA PROTOCOL Hydralazine HCl (Apresoline) 10 mg SLOW IVP Q4H PRN PRN Reason: SBP Greater Than 170 Last Admin: 12/14/17 11:34 Dose: 10 mg Hydralazine HCl (Apresoline) 25 mg PO TID [facility] Last Admin: 12/14/17 15:31 Dose: 25 mg Hydrochlorothiazide (Hydrochlorothiazide) 25 mg PO DAILY [facility] Last Admin: 12/14/17 08:46 Dose: 25 mg Ropivacaine 250 ml/ Device 250 mls @ 0 mls/hr NERVE BLCK INF [facility] PRN Reason: As Directed Last Admin: 12/09/17 13:28 Dose: 250 mls Insulin Glargine 18 units/ (Miscellaneous Medication) 0.18 mls @ 0 mls/hr SC HS [facility] Last Admin: 12/13/17 20:23 Dose: 0.18 mls Dextrose/Water (D5w) 1,000 mls @ 0 mls/hr IV INF PRN; As Directed PRN Reason: HYPOGLYCEMIA PROTOCOL Insulin Human Lispro (Humalog) 0 units SC .MODERATE SLIDING SC PRN; Protocol PRN Reason: MODERATE SLIDING SCALE Last Admin: 12/14/17 11:43 Dose: 2 units Insulin Human Lispro (Humalog) 0 units SC .BEDTIME SLIDING SC PRN; Protocol PRN Reason: BEDTIME SLIDING SCALE Iron/Minerals/Multivitamins (Theragran M) 1 tab PO DAILY [facility] Last Admin: 12/14/17 08:47 Dose: 1 tab Miscellaneous Medication (Pharmacy To Dose) 1 each PO .WARFARIN [facility] Nifedipine (Procardia Xl) 60 mg PO BID [facility] Last Admin: 12/14/17 08:46 Dose: 60 mg Olmesartan (Benicar) 40 mg PO DAILY [facility] Last Admin: 12/14/17 08:46 Dose: 40 mg Ondansetron HCl (Zofran) 4 mg IVP Q6H PRN PRN Reason: Nausea/Vomiting Last Admin: 12/11/17 12:41 Dose: 4 mg Pantoprazole Sodium (Protonix) 40 mg PO DAILY [facility] Last Admin: 12/14/17 08:47 Dose: 40 mg Promethazine HCl (Phenergan) 12.5 mg IM Q4H PRN PRN Reason: Nausea/Vomiting Psyllium Hydrophilic Mucilloid (Metamucil) 1 pk PO DAILY [facility] Last Admin: 12/14/17 08:47 Dose: Not Given Senna/Docusate Sodium (Senokot S) 2 tab PO BID [facility] Last Admin: 12/14/17 08:47 Dose: Not Given Sodium Chloride (Flush - Normal Saline) 10 ml IVF Q12HR [facility] Last Admin: 12/14/17 08:45 Dose: 10 ml Sodium Chloride (Flush - Normal Saline) 10 ml IVF PRN PRN PRN Reason: Saline Flush Tramadol HCl (Ultram) 100 mg PO Q6H PRN PRN Reason: Mild Pain (1-3) Last Admin: 12/14/17 11:46 Dose: 100 mg Warfarin Sodium (Coumadin) 5 mg PO 1700 [facility] Last Admin: 12/13/17 19:15 Dose: 5 mg Zolpidem Tartrate (Ambien) 5 mg PO HSPRN PRN PRN Reason: Insomnia
[2017-12-14 15:48] LABS: Anion Gap 12 mmol/L (10-20); BUN (Urea Nitrogen) 20 mg/dL (9.8-20.1); Calc. Creatinine Clearance 89 mL/min (70-130); Calcium 8.9 mg/dL (7.8-10.44); Carbon Dioxide 23 mmol/L (23-31); Chloride 106 mmol/L (98-107); Estimated GFR-MDRD 74; Glucose 167 mg/dL (83-110); Magnesium 1.9 mg/dL (1.6-2.6); Potassium 3.4 mmol/L (3.5-5.1); Sodium 138 mmol/L (136-145)
--- NOTE | 2017-12-14 15:50 | PDOC.PN ---
- Subjective Encounter Start Date: 12/14/17 Encounter Start Time: 10:45 Subjective: pt up in bed no complains - Objective Vital Signs & Weight: Vital Signs (12 hours) Temp Pulse Pulse Resp BP BP BP 12/14/17 15:31 85 167/72 H 12/14/17 12:50 85 156/90 H 12/14/17 11:34 57 L 188/77 H 12/14/17 11:25 68 188/77 H 12/14/17 11:15 12/14/17 11:11 68 22 H 188/77 H 12/14/17 08:46 57 L 195/83 H 12/14/17 07:09 96.5 F L 57 L 20 12/14/17 07:00 96.5 F L 57 L 20 195/83 H 12/14/17 04:00 98.1 F 52 L 18 149/72 H Pulse Ox 12/14/17 15:31 12/14/17 12:50 12/14/17 11:34 12/14/17 11:25 12/14/17 11:15 95 12/14/17 11:11 95 12/14/17 08:46 12/14/17 07:09 93 L 12/14/17 07:00 93 L 12/14/17 04:00 93 L Weight Admit Weight 203 lb Weight 215 lb 1 oz I&O: 12/13/17 12/14/17 12/15/17 06:59 06:59 06:59 Intake Total 955 850 Output Total 200 450 Balance 755 400 Result Diagrams: 12/14/17 05:32 12/14/17 15:22 Additional Labs: Accuchecks 12/14/17 12/14/17 12/13/17 10:51 05:51 20:21 POC Glucose 157 H 127 H 149 H 12/13/17 12/13/17 16:57 11:01 POC Glucose 195 H 172 H Phys Exam - Physical Examination HEENT: PERRLA, moist MMs, sclera anicteric, TM's clear, oral pharynx no lesions , 2+ tonsils Neck: no nodes, no JVD, supple, full ROM Respiratory: no wheezing, no rales, no rhonchi, wheezing present, clear to auscultation bilateral Cardiovascular: RRR, no significant murmur, no rub, gallop, irregular Gastrointestinal: soft, non-tender, no distention, positive bowel sounds Dx/Plan (1) AV dissociation Code(s): I45.89 - OTHER SPECIFIED CONDUCTION DISORDERS Status: Acute (2) DM type 2 (diabetes mellitus, type 2) Status: Chronic Qualifiers: Diabetes mellitus terminal operator insulin use: without nursing home use Diabetes mellitus complication status: without complication Qualified Code(s): E11.9 - Type 2 diabetes mellitus without complications (3) Acute on chronic diastolic heart failure Code(s): I50.33 - ACUTE ON CHRONIC DIASTOLIC (CONGESTIVE) HEART FAILURE Status : Acute (4) Nausea & vomiting Code(s): R11.2 - NAUSEA WITH VOMITING, UNSPECIFIED Status: Acute - Plan pt had some runs to svt today, will notify cardiology -: will check bmp and mag today -: pt's inr is theraputic will discontinue lovonox * . Review of Systems - Review of Systems ENT: negative: Ear Pain, Ear Discharge, Nose Pain, Nose Discharge, Nose Congestion, Mouth Pain, Mouth Swelling, Throat Pain, Throat Swelling, Other Respiratory: negative: Cough, Dry, Shortness of Breath, Hemoptysis, SOB with Excertion, Pleuritic Pain, Sputum, Wheezing Cardiovascular: negative: chest pain, palpitations, orthopnea, paroxysmal nocturnal dyspnea, edema, light headedness, other Gastrointestinal: negative: Nausea, Vomiting, Abdominal Pain, Diarrhea, Constipation, Melena, Hematochezia, Other - Medications/Allergies Allergies/Adverse Reactions: Allergies Allergy/AdvReac Type Severity Reaction Status Date / Time banana Allergy Verified 12/07/17 12:15 lactase [From Dairy Aid] Allergy Verified 12/02/17 13:18 CHOCOLATE Allergy Uncoded 07/02/16 16:16 ORANGES Allergy Uncoded 07/02/16 16:16 Medications: Current Medications Acetaminophen (Tylenol) 650 mg PO Q4H PRN PRN Reason: HENNING/ T > 101F; Mild Pain (1-3) Last Admin: 12/14/17 01:39 Dose: 650 mg Hydrocodone Bitart/Acetaminophen ([place] 10/325) 1 tab PO Q4H PRN PRN Reason: Moderate Pain (4-6) Last Admin: 12/13/17 03:33 Dose: 1 tab Hydrocodone Bitart/Acetaminophen ([place] 10/325) 2 tab PO Q4H PRN PRN Reason: Severe Pain (7-10) Last Admin: 12/08/17 06:49 Dose: 2 tab Acidophilus (Floranex) 1 tab PO DAILY [facility] Last Admin: 12/14/17 08:46 Dose: 1 tab Atorvastatin Calcium (Lipitor) 20 mg PO HS [facility] Last Admin: 12/13/17 20:26 Dose: 20 mg Calcium Carbonate (Caltrate) 600 mg PO DAILY [facility] Last Admin: 12/14/17 08:47 Dose: 600 mg Dextrose/Water (Dextrose 50%) 25 gm IVP PRN PRN PRN Reason: HYPOGLYCEMIA PROTOCOL Diphenhydramine HCl (Benadryl) 25 mg PO Q6H PRN PRN Reason: Itching Last Admin: 12/14/17 01:39 Dose: 25 mg Fentanyl (Sublimaze) 50 mcg SLOW IVP Q30MIN PRN PRN Reason: Moderate Pain (4-6) Fentanyl (Sublimaze) 100 mcg SLOW IVP Q1H PRN PRN Reason: Severe Pain (7-10) Ferrous Gluconate (Fergon) 324 mg PO BID [facility] Last Admin: 12/14/17 08:47 Dose: 324 mg Fish Oil (Fish Oil) 1,000 mg PO DAILY [facility] Last Admin: 12/14/17 08:45 Dose: 1,000 mg Glucagon (Glucagon) 1 mg IM PRN PRN PRN Reason: HYPOGLYCEMIA PROTOCOL Hydralazine HCl (Apresoline) 10 mg SLOW IVP Q4H PRN PRN Reason: SBP Greater Than 170 Last Admin: 12/14/17 11:34 Dose: 10 mg Hydralazine HCl (Apresoline) 25 mg PO TID [facility] Last Admin: 12/14/17 15:31 Dose: 25 mg Hydrochlorothiazide (Hydrochlorothiazide) 25 mg PO DAILY [facility] Last Admin: 12/14/17 08:46 Dose: 25 mg Ropivacaine 250 ml/ Device 250 mls @ 0 mls/hr NERVE BLCK INF [facility] PRN Reason: As Directed Last Admin: 12/09/17 13:28 Dose: 250 mls Insulin Glargine 18 units/ (Miscellaneous Medication) 0.18 mls @ 0 mls/hr SC HS [facility] Last Admin: 12/13/17 20:23 Dose: 0.18 mls Dextrose/Water (D5w) 1,000 mls @ 0 mls/hr IV INF PRN; As Directed PRN Reason: HYPOGLYCEMIA PROTOCOL Insulin Human Lispro (Humalog) 0 units SC .MODERATE SLIDING SC PRN; Protocol PRN Reason: MODERATE SLIDING SCALE Last Admin: 12/14/17 11:43 Dose: 2 units Insulin Human Lispro (Humalog) 0 units SC .BEDTIME SLIDING SC PRN; Protocol PRN Reason: BEDTIME SLIDING SCALE Iron/Minerals/Multivitamins (Theragran M) 1 tab PO DAILY [facility] Last Admin: 12/14/17 08:47 Dose: 1 tab Miscellaneous Medication (Pharmacy To Dose) 1 each PO .WARFARIN [facility] Nifedipine (Procardia Xl) 60 mg PO BID [facility] Last Admin: 12/14/17 08:46 Dose: 60 mg Olmesartan (Benicar) 40 mg PO DAILY [facility] Last Admin: 12/14/17 08:46 Dose: 40 mg Ondansetron HCl (Zofran) 4 mg IVP Q6H PRN PRN Reason: Nausea/Vomiting Last Admin: 12/11/17 12:41 Dose: 4 mg Pantoprazole Sodium (Protonix) 40 mg PO DAILY [facility] Last Admin: 12/14/17 08:47 Dose: 40 mg Promethazine HCl (Phenergan) 12.5 mg IM Q4H PRN PRN Reason: Nausea/Vomiting Psyllium Hydrophilic Mucilloid (Metamucil) 1 pk PO DAILY [facility] Last Admin: 12/14/17 08:47 Dose: Not Given Senna/Docusate Sodium (Senokot S) 2 tab PO BID [facility] Last Admin: 12/14/17 08:47 Dose: Not Given Sodium Chloride (Flush - Normal Saline) 10 ml IVF Q12HR [facility] Last Admin: 12/14/17 08:45 Dose: 10 ml Sodium Chloride (Flush - Normal Saline) 10 ml IVF PRN PRN PRN Reason: Saline Flush Tramadol HCl (Ultram) 100 mg PO Q6H PRN PRN Reason: Mild Pain (1-3) Last Admin: 12/14/17 11:46 Dose: 100 mg Warfarin Sodium (Coumadin) 5 mg PO 1700 [facility] Last Admin: 12/13/17 19:15 Dose: 5 mg Zolpidem Tartrate (Ambien) 5 mg PO HSPRN PRN PRN Reason: Insomnia
[2017-12-14] MEDS: Warfarin Sodium 5 MG TAB PO SCH (17:54)
[2017-12-14] MEDS: HYDROcodone/Acetaminophen 10/325 mg Tablet PO PRN (21:04)
[2017-12-14] MEDS: Insulin Glargine 18 UNITS in Pre-Filled Syringe 1 EACH SC SCH (21:05)
[2017-12-14] MEDS: Atorvastatin Calcium 20 MG TAB PO SCH (21:06)
[2017-12-15] MEDS: HYDROcodone/Acetaminophen 10/325 mg Tablet PO PRN ×2 (03:46→09:59)
[2017-12-15 06:08] LABS: Hemoglobin 11.8 g/dL (12.0-16.0); Mean Corpuscular HGB CONC 33.4 g/dL (32.0-36.0); Mean Corpuscular Hemoglobin 29.5 pg (27.0-31.0); Mean Corpuscular Volume 88.3 fL (78.0-98.0); Mean Platelet Volume 8.3 fL (7.4-10.4); Platelet Count 352 thou/uL (130-400); RBC Distribution Width 13.3 % (11.5-14.5); Red Blood Cell (RBC) Count 4.02 mill/uL (4.20-5.40); White Blood Cell (WBC) Count 9.5 thou/uL (4.8-10.8)
[2017-12-15 06:20] LABS: INR-International Normal Ratio 2.3; Prothrombin Time 25.7 SEC (12.0-14.7)
[2017-12-15 07:54] LABS: Anion Gap 15 mmol/L (10-20); BUN (Urea Nitrogen) 17 mg/dL (9.8-20.1); Calc. Creatinine Clearance 95 mL/min (70-130); Calcium 8.8 mg/dL (7.8-10.44); Carbon Dioxide 22 mmol/L (23-31); Chloride 106 mmol/L (98-107); Estimated GFR-MDRD 80; Glucose 110 mg/dL (83-110); Potassium 3.2 mmol/L (3.5-5.1); Sodium 140 mmol/L (136-145)
[2017-12-15 08:29] VITALS: TEMP 97.4
[2017-12-15] MEDS: hydrALAZINE 25 MG TAB PO SCH (09:53)
[2017-12-15] MEDS: Senokot S 8.6-50 MG TAB PO SCH (09:55)
[2017-12-15] MEDS: Multivitamin W/ Minerals 1 TAB PO SCH (09:56)
[2017-12-15] MEDS: Fish Oil 1,000 MG CAP PO SCH (09:56)
[2017-12-15] MEDS: Hydrochlorothiazide 25 MG TAB PO SCH (09:57)
[2017-12-15] MEDS: NIFEdipine XL 60 MG TAB PO SCH (09:57)
[2017-12-15] MEDS: Ferrous Gluconate 324 MG TAB PO SCH (09:58)
[2017-12-15] MEDS: Calcium Carbonate 600 MG TAB PO SCH (09:58)
[2017-12-15] MEDS: Lactinex Tablet PO SCH (09:58)
[2017-12-15] MEDS: Metamucil PACK PO SCH (10:08)
[2017-12-15 12:29] VITALS: BP 135/70
== END 2017-12-15 13:28 | DRG 469 ==
LOC: SDC 05:34 → SJJU 06:50 → SDC 12-08 16:13 → SJJU 12-08 16:30 → IMCU/EMU 12-09 02:55 → 2NO 12-12 18:06
PROVIDERS: ADMIT Orthopaedic Surgery; ATTEND Orthopaedic Surgery
PROC: 0SRC0J9 Replacement of Right Knee Joint with Synthetic Substitute, Cemented, Open Approach (ICD-10-PCS; principal; 2017-12-07)
DX: M17.11 Unilateral primary osteoarthritis, right knee (principal); I50.33 Acute on chronic diastolic (congestive) heart failure; I45.89 Other specified conduction disorders; E11.9 Type 2 diabetes mellitus without complications; E78.5 Hyperlipidemia, unspecified; I48.91 Unspecified atrial fibrillation; R00.1 Bradycardia, unspecified; G47.33 Obstructive sleep apnea (adult) (pediatric); E66.9 Obesity, unspecified; Z68.39 Body mass index [BMI] 39.0-39.9, adult; I35.0 Nonrheumatic aortic (valve) stenosis; I11.0 Hypertensive heart disease with heart failure; R11.2 Nausea with vomiting, unspecified; Z79.01 Long term (current) use of anticoagulants; Z83.3 Family history of diabetes mellitus; Z82.49 Family history of ischemic heart disease and other diseases of the circulatory system
CPT/HCPCS: 36415; 36416; 76705; 80048; 80076; 81003; 82553; 83735; 84484; 85027; 85610; 85730; 93005; 93010; 93306; 94760; A4216; C1713; C1776; G8978-GP-CJ; G8978-GP-CL; G8979-GP-CI; G8979-GP-CJ; J0131; J0360; J0670; J1650; J1885; J1956; J2001; J2250; J2405; J2550; J2704; J2765; J2795; J3010; J3370; J3480; J7050; S0020

== ENCOUNTER 2018-01-06 16:08 | Emergency (ER) | payer MEDICARE ==
--- NOTE | 2018-01-06 16:58 | RAD ---
AP VIEW CHEST: Date: 01/06/18 INDICATION: Emergency examination with irregular heart rate. FINDINGS: There is cardiomegaly with pulmonary vascular congestion. There are small bilateral pleural effusions . No pneumothorax is evident. Chronic osseous changes are stable. IMPRESSION: Findings suggesting mild CHF. POS: [facility]
[2018-01-06 17:10] LABS: #Basophils 0.1 thou/uL (0.0-0.2); #Eosinphils 0.1 thou/uL (0.0-0.7); #Lymphocytes 2.1 thou/uL (1.20-3.40); #Monocytes 0.5 thou/uL (0.11-0.59); #Neutrophils 4.1 thou/uL (1.40-6.50); %Basophils 1.3 % (0.0-1.0); %Lymphocytes 30.8 % (21.0-51.0); %Monocytes 6.6 % (0.0-10.0); %Neutrophils 59.3 % (42.0-75.0); Hemoglobin 12.9 g/dL (12.0-16.0); Mean Corpuscular HGB CONC 32.8 g/dL (32.0-36.0); Mean Corpuscular Hemoglobin 29.3 pg (27.0-31.0); Mean Corpuscular Volume 89.2 fL (78.0-98.0); Mean Platelet Volume 8.4 fL (7.4-10.4); Platelet Count 275 thou/uL (130-400); RBC Distribution Width 13.8 % (11.5-14.5); Red Blood Cell (RBC) Count 4.42 mill/uL (4.20-5.40); White Blood Cell (WBC) Count 6.9 thou/uL (4.8-10.8)
[2018-01-06 17:37] LABS: ALT (SGPT) 16 U/L (8-55); AST (SGOT) 17 U/L (5-34); Albumin 3.9 g/dL (3.4-4.8); Alkaline Phosphatase 99 U/L (40-150); Anion Gap 15 mmol/L (10-20); BUN (Urea Nitrogen) 13 mg/dL (9.8-20.1); Bilirubin, Total 0.4 mg/dL (0.2-1.2); CK (CPK) 48 U/L (29-168); Calc. Creatinine Clearance 0 mL/min (70-130); Calcium 9.5 mg/dL (7.8-10.44); Carbon Dioxide 25 mmol/L (23-31); Chloride 107 mmol/L (98-107); Estimated GFR-MDRD 65; Globulin 2.9 g/dL (2.4-3.5); Glucose 89 mg/dL (83-110); Potassium 3.5 mmol/L (3.5-5.1); Protein, Total 6.8 g/dL (6.0-8.3); Sodium 143 mmol/L (136-145)
[2018-01-06 17:42] LABS: CKMB 1.1 ng/mL (0-6.6); Troponin I Less than 0.010 ng/mL (< 0.028)
[2018-01-06 18:03] LABS: INR-International Normal Ratio 2.5; Prothrombin Time 26.8 SEC (12.0-14.7)
--- NOTE | 2018-01-08 16:38 | EKG ---
Test Reason : Blood Pressure : / mmHG Vent. Rate : 112 BPM Atrial Rate : 112 BPM P-R Int : 216 ms QRS Dur : 116 ms QT Int : 352 ms P-R-T Axes : 085 -31 106 degrees QTc Int : 480 ms Sinus tachycardia with 1st degree A-V block with Premature supraventricular complexes Left axis deviation Possible Anterolateral infarct , age undetermined Abnormal ECG Confirmed by CED SMALL ([id number]), development editor DOE ORTEGA ([id number]) on 01/08/2018 4:37:31 PM Referred By: Confirmed By:CED SMALL
== END 2018-01-06 18:51 | disposition home or self-care (01) ==
LOC: ERS 16:08
DX: I48.92 Unspecified atrial flutter (principal); E11.9 Type 2 diabetes mellitus without complications; I10 Essential (primary) hypertension; Z79.899 Other long term (current) drug therapy; Z79.01 Long term (current) use of anticoagulants
CPT/HCPCS: 36415; 71045; 80053; 82553; 83880; 84484; 85025; 85610; 85730; 93005

== ENCOUNTER 2019-01-29 04:47 | Inpatient (IN) | payer MEDICARE ==
[2019-01-29] MEDS ORDERED: Ondansetron PF 4 MG/2 ML Vial ONE (05:05)
[2019-01-29 05:25] LABS: Hemoglobin 13.7 g/dL (12.0-16.0); Mean Corpuscular HGB CONC 33.7 g/dL (32.0-36.0); Mean Corpuscular Hemoglobin 29.5 pg (27.0-31.0); Mean Corpuscular Volume 87.4 fL (78.0-98.0); Mean Platelet Volume 10.7 fL (7.4-10.4); Platelet Count 223 thou/uL (130-400); RBC Distribution Width 12.5 % (11.5-14.5); Red Blood Cell (RBC) Count 4.65 mill/uL (4.20-5.40); White Blood Cell (WBC) Count 20.9 thou/uL (4.8-10.8)
[2019-01-29 05:52] LABS: ALT (SGPT) 553 U/L (8-55); AST (SGOT) 405 U/L (5-34); Albumin 3.7 g/dL (3.4-4.8); Alkaline Phosphatase 243 U/L (40-150); Anion Gap 13 mmol/L (10-20); BUN (Urea Nitrogen) 20 mg/dL (9.8-20.1); Band 9 % (5-11); Bilirubin, Total 1.9 mg/dL (0.2-1.2); Calc. Creatinine Clearance 0 mL/min (70-130); Calcium 9.1 mg/dL (7.8-10.44); Carbon Dioxide 29 mmol/L (23-31); Chloride 102 mmol/L (98-107); Estimated GFR-MDRD 52; Globulin 2.7 g/dL (2.4-3.5); Glucose 116 mg/dL (83-110); Large Platelets SLIGHT; Lipase 41 U/L (8-78); Lymphocytes 11 % (21-51); MDiff Complete? YES; Monocytes 5 % (0-10); Neutrophil 75 % (42-75); Platelet Morphology Comment Appears Adequate; Protein, Total 6.4 g/dL (6.0-8.3); Sodium 141 mmol/L (136-145)
--- NOTE | 2019-01-29 08:24 | ULT ---
RIGHT UPPER QUADRANT ULTRASOUND: HISTORY: Right upper quadrant pain. COMPARISON: Abdomen and pelvic CT scan. FINDINGS: Abnormal gallbladder wall thickening and pericholecystic edema with sludge without overt gallstones. Negative Clement's sign. Common bile duct 0.5 cm. Minimal hepatomegaly. Visualized pancreas and ri ght kidney are unremarkable. IMPRESSION: Abnormal gallbladder wall thickening with some gallbladder sludge without overt stones. Hepatomegaly , mild. If there is concern for acute cholecystitis, followup nuclear medicine hepatobiliary scan mi ght be considered. POS: BELIA
--- NOTE | 2019-01-29 08:56 | CT ---
PRELIMINARY REPORT/[facility]/EMERGENCY AFTER HOURS PROCEDURE: EXAM: CT Abdomen and Pelvis With Contrast EXAM DATE/TIME: 01/29/2019 6:04 AM CLINICAL HISTORY: 83 years old, female; Abdominal pain; Acute; Patient HX: 83 y/o F, with h/o afib, dmii, HTN, presents to ED C/O n/v that began yesterday, with associated abd cramping. She was prompted to come to ED now as her pain worsened such that it woke her from sleeping. PT states she purchased food at [employer] noting that one of the employees left work while PT was there due to the employee's illness. PT dunia pects she was infected following ingestion of food from [employer] that was contaminated by the ill employee. Additional HX includes x 3 colon surgeries, hysterectomy. Current medications include warfarin. TECHNIQUE: Imaging protocol: Computed tomography of the abdomen and pelvis with intravenous contrast. COMPARISON: No relevant prior studies available. FINDINGS: Lungs: There is scarring at the lung bases. Pleural space: There are trace bilateral pleural effusions with dependent atelectasis. Heart: There is calcification of the mitral anulus, partially visualized. Mediastinum: A small hiatal hernia is present. Liver: There is nodularity of the liver parenchyma possibly representing regenerative nodules, incomp letely evaluated with CT. Gallbladder and bile ducts: There is nonspecific gallbladder wall thickening/pericholecystic fluid. Pancreas: Normal. No ductal dilation. Spleen: The spleen is normal. Adrenals: There is adrenal gland thickening. Kidneys and ureters: There is a simple cyst in the left kidney. There is a simple cyst in the right k idney. Stomach and bowel: Unremarkable. No obstruction. No mucosal thickening. Appendix: No evidence of appendicitis. Intraperitoneal space: Unremarkable. No free air. No significant fluid collection. Vasculature: Unremarkable. No abdominal aortic aneurysm. Lymph nodes: Unremarkable. No enlarged lymph nodes. Bladder: Unremarkable as visualized. Reproductive: Unremarkable as visualized. Bones/joints: Unremarkable. No acute fracture. Soft tissues: There is small bowel hernia within a ventral abdominal incisional hernia without eviden ce of obstruction at this time. IMPRESSION: 1. Nonspecific gallbladder wall thickening/pericholecystic fluid. Right upper quadrant ultrasound may provide better characterization if clinically warranted. 2. Small bowel within a ventral abdominal incisional hernia without evidence of obstruction at this t maicol. Thank you for allowing us to participate in the care of your patient. Dictated and Authenticated by: Shahzad Chacon MD 01/29/2019 7:00 AM Central Time ([place] & [place]) FINAL REPORT ABDOMEN CT WITH CONTRAST PELVIC CT WITH CONTRAST: HISTORY: Epigastric pain. FINDINGS: ABDOMEN CT: Small bilateral effusions. Grossly normal solid organs. There is fluid in the gallbladder fossa along with gallbladder wall enhancement. Symmetric enhancement of the kidneys. No obstructive uropathy. Limited evaluation of the alimentary canal by the lack of oral contrast. No evidence of bowel obstru ction. Unremarkable ileocecal junction. Appendix is difficult to localize. No obvious inflammatory changes of the cecal apex. There is a small hernia along the anterior abdominal wall with a very ti ny segment of what is likely small bowel extending through the defect. No evidence of associated bow el obstruction. PELVIC CT: Surgically absent uterus. No mass, lymphadenopathy, free air, or free fluid. IMPRESSION: This report is in agreement with the preliminary report by [facility]. There is nonspecific gallbladder wal l thickening and pericholecystic fluid. Correlate clinically for cholecystitis. POS: OFF
[2019-01-29] MEDS ORDERED: Piperacillin/Tazobactam 3.375 GM VIAL ONE (09:35)
[2019-01-29 10:09] LABS: Bacteria/HPF None Seen HPF (None Seen); Bilirubin Negative (Negative); Blood, Urine Trace (Negative); Clarity Clear (Clear); Glucose, Urine (Dipstick) Normal (Negative); Leukocyte Negative Leu/uL (Negative); Nitrite Negative (Negative); Protein, Urine (Dipstick) 50 mg/dL (Neg-Trace); Urobilinogen Normal mg/dL (Less than 2); WBC/HPF 0-3 HPF (0-3)
[2019-01-29] MEDS ORDERED: Senokot S 8.6-50 MG TAB PO PRN (10:55)
[2019-01-29] MEDS ORDERED: HYDROcodone/Acetaminophen 5/325 mg Tablet PO PRN (10:55)
[2019-01-29] MEDS ORDERED: Ondansetron PF 4 MG/2 ML Vial IVP PRN (11:03)
[2019-01-29 11:29] LABS: INR-International Normal Ratio 2.3; Prothrombin Time 24.8 SEC (12.0-14.7)
[2019-01-29] MEDS ORDERED: Morphine 4 MG/ML VIAL SLOW IVP PRN (11:37)
[2019-01-29] MEDS ORDERED: Morphine 2 MG/ML SYRINGE SLOW IVP PRN (11:37)
[2019-01-29] MEDS: NS 0.9% w/ 40 MEQ KCL 1,000 ML IV SCH (12:27)
[2019-01-29 12:41] VITALS: BMI 36.9
--- NOTE | 2019-01-29 12:41 | HP ---
PRIMARY CARE PHYSICIAN: Dr. Silveira. CHIEF COMPLAINT: Nausea and vomiting. HISTORY OF PRESENT ILLNESS: Ms. Garcia is a very pleasant 83-year-old female who reported to the emergency room today after 36 hours of nausea, vomiting, fever, chills, and abdominal pain. She has a past medical history pertinent for AFib, DM 2, hypertension. Reports the night before yesterday, she reports that she began to have some abdominal cramping and then profuse nausea with associated vomiting. Reports that she was unable to tolerate any p.o. whatsoever. She tried water and Diet Coke and immediately vomited back up. She reports that she has a history of lactose intolerance and thought that is initially what it was. She also ate at a [employer] and reports that the employee who took care of her left shortly thereafter after not feeling well. In the emergency room, she had a CT scan, that was found to have nonspecific gallbladder wall thickening, pericholecystic fluid. Right upper quadrant ultrasound may be better helpful to characterize if clinically warranted. Small bowel with a ventral abdominal incisional hernia without evidence of any obstruction. The ultrasound showed abnormal gallbladder wall thickening with some gallbladder sludge without any overt stones, enlarged liver. If there is a concern for cholecystitis, followup nuclear med V/Q scan might be considered. Potassium was found to be low at 3, glucose high at 116, bilirubin 1.9, and alkaline phosphatase at 243, AST of 405, ALT at 553. White blood cell count was also found to be elevated at 20.9. Urine; specific gravity 1.056; protein and blood, trace squamous cells, no bacteria was seen. ER reports consulted Dr. Tong, who would like the patient admitted to Medicine and a consult with GI to consider potentially perc drainage and antibiotics to be started and he would be happy to consult. The patient on evaluation by hospitalist team reports the nausea has improved, but is still there and now has some epigastric pain, but that has eased. Clement sign is negative. The patient is on Coumadin for AFib. We will check an INR, PT, and PTT. The patient admitted to medical for further evaluation. REVIEW OF SYSTEMS: The patient reports chills, reports fever, reports abdominal pain, reports nausea, reports vomiting, reports chronic diarrhea, but nothing new or worsening. Denies dysuria or increased frequency. All systems reviewed and are negative unless mentioned in the HPI. PAST MEDICAL HISTORY: 1. Diabetes type 2. 2. Hypertension. 3. AFib with chronic anticoagulation, on Coumadin. 4. Lactose intolerance. SURGICAL HISTORY: 1. Colon surgery x3. 2. Hysterectomy. 3. Left knee surgery. PSYCHIATRIC HISTORY: None. SOCIAL HISTORY: Denies any alcohol or drug use. No smoking history. Lives at home with her . ALLERGIES: BANANA, CHOCOLATE FLAVOR, LACTULOSE, ORANGES. CURRENT MEDICATIONS: Still need to be verified. Per the ER; 1. Calcium 500 mg p.o. once a day. 2. Atorvastatin 20 mg p.o. once a day. 3. Protonix 40 mg p.o. once a day. 4. Lasix 40 mg p.o. once a day. 5. Hydralazine 25 mg p.o. t.i.d. 6. Losartan 100 mg once a day. 7. Potassium 99 mg p.o. once a day. 8. Coumadin 7.5 mg once a day. 9. Nifedipine 30 mg p.o. b.i.d. 10. Metoprolol 25 mg p.o. once a day. PHYSICAL EXAMINATION: VITAL SIGNS: Blood pressure is 171/81, respirations are 18, p.o. temperature is 98, and O2 sats are 96% on 2L. GENERAL: The patient appears nontoxic. She is alert and oriented to person, place, and time. HEAD: Atraumatic and normocephalic. EYES: Eyelids are normal to inspection. Extraocular muscles are intact. ENT: Mouth exam is normal. Mucous membranes are moist. NECK: Normal range of motion. Trachea is midline. RESPIRATORY/CHEST: Breath sounds are clear. Chest movement is symmetrical. CARDIOVASCULAR: Rhythm is irregularly irregular. Heart sounds are normal. ABDOMEN: Tender, epigastric and right upper quadrant. There are no peritoneal signs. Abdomen is soft. Bowel sounds are heard. EXTREMITIES: Upper extremities; normal to inspection, normal range of motion, radial pulses are normal. Lower extremities; normal range of motion, motor strength is normal, pedal pulses normal. No edema is noted. NEURO: The patient is oriented to person, place, and time. Speech is normal. SKIN: Warm and dry. Normal in color. CODE STATUS: Full. The patient reports that her is her surrogate decision maker. PLAN AND ASSESSMENT: 1. Most likely cholecystitis based on CT scan and lab values. We will admit, start antibiotics, Zosyn and vancomycin were given in the emergency room and we will continue these. Surgery with Dr. Tong was consulted from the ER. He will see, but would also like GI to be consulted for evaluation for percutaneous drainage. We will add some Zofran for nausea and pain medication as needed and await recommendations from Surgery and GI. 2. Hypokalemia. Gentle hydration with normal saline with 40 mEq of potassium at 75 mL an hour. We will recheck value in the morning. 3. Chronic anticoagulation for atrial fibrillation. We will hold for now. INR is 2.3. 4. History of hypertension. We will hold p.o. medications for now and restart as soon as possible and add p.r.n. as needed for control. We will trend. 5. Chronic diarrhea. We will restart probiotics and other medications as soon as the patient is tolerating p.o. 6. Case discussed with Dr. Leigh who agrees with plan. 7. Deep vein thrombosis and gastrointestinal prophylaxis have been started. Job ID: [id number]
[2019-01-29] MEDS ORDERED: ISOVUE-370 76%-LOCM 1 ML ONE (13:01)
[2019-01-29] MEDS ORDERED: Dextrose 50% Abboject 50 ML SYRINGE SLOW IVP PRN (15:07)
[2019-01-29] MEDS ORDERED: Dextrose 5% in Water 1,000 ML IV PRN (15:07)
[2019-01-29] MEDS ORDERED: hydrALAZINE 20 MG/ML VIAL SLOW IVP PRN (15:08)
--- NOTE | 2019-01-29 16:23 | CON ---
DATE OF CONSULTATION: CHIEF COMPLAINT: Mid epigastric pain. HISTORY OF PRESENT ILLNESS: This is an 83-year-old female with a 3-week history of abdominal pain, became worse yesterday, came to the emergency room this morning. It does not radiate to her back. There has been some nausea and vomiting. She had a normal bowel movement yesterday. She denies fever. PAST MEDICAL HISTORY: Significant for; 1. Morbid obesity. 2. Hypertension. 3. Diabetes. 4. She has AFib. She sees Dr. Urbano. 5. She has hyperlipidemia. 6. Gastroesophageal reflux. PAST SURGICAL HISTORY: 1. She had an emergency sigmoid colon resection with colostomy. 2. She has had colostomy reversal. 3. She has had a hysterectomy. 4. She has had knee surgery. 5. She had a cyst on her spine excised. ALLERGIES: SHE HAS NO KNOWN DRUG ALLERGIES. SOCIAL HISTORY: She is . No tobacco or alcohol. FAMILY HISTORY: Father of heart disease. Mother had stroke. PHYSICAL EXAMINATION: VITAL SIGNS: Temperature 98, pulse 57, blood pressure 176/78. GENERAL: She is awake and alert, in minimal distress. No jaundice. LUNGS: Clear. HEART: Regular rate and rhythm. ABDOMEN: Morbidly obese. She has a well-healed surgical scar in the low midline. She has a ventral hernia in the upper aspect of this, which is not tender. She really does not have any focal tenderness. No peritoneal signs. LABORATORY DATA: Her white count is 20,000, hemoglobin and hematocrit of 13 and 40, and platelet count of 223. Electrolytes are fine. T-bilirubin 1.9, AST of 405, ALT 553, and alkaline phosphatase 243. Her INR is 2.3 and PT is 24.8. She has on ultrasound a thickened gallbladder wall. No gallstones. On CT, she has the thickened gallbladder wall, some pericholecystic fluid. No gallstones. ASSESSMENT: Possible acalculous cholecystitis. PLAN: IV antibiotics. HIDA scan and possible percutaneous cholecystostomy tube. GI consultation. Job ID: [id number]
[2019-01-29] MEDS: Piperacillin/Tazobactam 3.375 GM in Sodium Chloride 0.9% 100 ML IVPB SCH (17:21)
--- NOTE | 2019-01-29 17:39 | CON ---
DATE OF CONSULTATION: REASON FOR CONSULTATION: Preop clearance. PRIMARY GATE PERSON: Dr. Miguel Urbano. HISTORY OF PRESENT ILLNESS: Ms. Garcia is a pleasant 83-year-old woman, who recently presented with gallbladder-type symptoms. She states this occurred over the last 3 days. No chest pain, pressure, shortness of breath, or associated symptoms. From a cardiac standpoint, she has a previous history of [id number] aortic stenosis based on an echo one year ago. She is currently on Coumadin with an INR of 2.3. She has chronic atrial fibrillation. PAST MEDICAL HISTORY: As above including colon surgery, hysterectomy, and left knee surgery. SOCIAL HISTORY: No current tobacco or alcohol use. ALLERGIES: TO NO MEDICATIONS. CURRENT HOME MEDICATIONS: Include, 1. Atorvastatin. 2. Protonix. 3. Lasix. 4. Hydralazine. 5. Losartan. 6. Potassium. 7. Coumadin. 8. Nifedipine. 9. Metoprolol. REVIEW OF SYSTEMS: A 10-point review of systems is reviewed as above, otherwise negative. PHYSICAL EXAMINATION: GENERAL: Patient is a pleasant woman, who is in no acute distress. The patient appears their stated age. VITAL SIGNS: Blood pressure 176/78, pulse 57, and temperature 98. NEUROLOGIC: The patient is alert and oriented x3 with no focal neurologic deficits. HEENT: Sclerae without icterus. Mouth has moist mucous membranes with normal pallor. NECK: No JVD. Carotid upstroke brisk. No bruits bilaterally. LUNGS: Clear to auscultation with unlabored respirations. BACK: No scoliosis or kyphosis. CARDIAC: Irregularly irregular with 2/6 systolic ejection murmur heard best in the right upper sternal border. ABDOMEN: Soft, nontender, nondistended. No peritoneal signs present. No hepatosplenomegaly. No abnormal striae. EXTREMITIES: 2+ femoral and 2+ dorsalis pedis pulses. No cyanosis, clubbing, or edema. SKIN: No gross abnormalities. PERTINENT LABORATORY DATA: Hemoglobin 13.7, hematocrit 40.7, and platelet count of 223. IMPRESSION: 1. Preoperative clearance. 2. Chronic atrial fibrillation. 3. Dmxc-vd-[id number] aortic stenosis. RECOMMENDATIONS: I would recommend repeating her echo to assess the valve. She does have a murmur present. I would also recommend stopping Coumadin. I could add p.o. vitamin K, but her INR appears to be 2.3 and stable. May need to wait another one or two days to have her INR drift down. Otherwise, she has no current symptoms suggesting angina. Further recommendation per Dr. Miguel Urbano in a.m. Job ID: [id number]
--- NOTE | 2019-01-29 19:11 | CON ---
DATE OF CONSULTATION: 01/29/2019 CHIEF COMPLAINT: Abdominal pain. HISTORY OF PRESENT ILLNESS: Ms. Garcia is an 83-year-old woman, who first had episode of pain around 3 weeks ago, which was a pressure-type pain in the epigastric region that went on for a couple of days and then resolved. She did have nausea associated with that originally. She did fine after that until yesterday morning. She woke up with severe pain in the epigastric to right upper side associated with nausea and vomiting. She had chills and sweats associated with this. The pain persisted and she ultimately came on to the emergency room for further care. She has had no diarrhea or constipation or blood in the stool associated with this. She had imaging performed in the emergency room that showed signs of cholecystitis and GI was consulted to help evaluate that along with elevated liver tests. PAST MEDICAL HISTORY: 1. Diabetes mellitus type 2. 2. Hypertension. 3. Atrial fibrillation, on anticoagulation, currently on Coumadin. 4. She reports history of colon polyps with last colonoscopy by Dr. Tong. PAST SURGICAL HISTORY: She has had prior colon resection related to perforated diverticulitis and colostomy and colostomy takedown, hysterectomy, knee surgery. FAMILY HISTORY: Negative for GI malignancy. SOCIAL HISTORY: No alcohol, tobacco, or drugs. ALLERGIES: SHE HAS FOOD ALLERGIES INCLUDING BANANA AND CHOCOLATE FLAVORING AND ORANGES. CURRENT MEDICATIONS: As an outpatient prior to admission; 1. Atorvastatin. 2. Pantoprazole. 3. Calcium. 4. Furosemide. 5. Hydralazine. 6. Losartan. 7. Potassium. 8. Coumadin. 9. Nifedipine. 10. Metoprolol. Here in the hospital, she is on vancomycin and Zosyn. REVIEW OF SYSTEMS: Negative x10 systems reviewed except as stated in the history of present illness. PHYSICAL EXAMINATION: VITAL SIGNS: Temperature is 98.0, pulse 57, blood pressure 176/78. GENERAL: She is in no acute distress. Alert and oriented x3. HEENT: Eyes have no scleral icterus. Oropharynx is clear without lesions. No cervical or supraclavicular lymphadenopathy. LUNGS: Clear to auscultation bilaterally. HEART: Irregularly irregular with 2/6 systolic murmur at the left lower sternal border. ABDOMEN: Soft. She has some diffuse tenderness, but more so in the right upper quadrant without guarding. Her bowel sounds are present. EXTREMITIES: No lower extremity edema. LABORATORY DATA: White blood cell count 20.9, hemoglobin 13.7, platelets 223. INR 2.3. Creatinine 1.01. Bilirubin 1.9, AST is 405, ALT 553, alkaline phosphatase 243, albumin 3.7, lipase 41. IMAGING DATA: She had an ultrasound in the emergency room, which showed gallbladder wall thickening and some sludge without obvious stones. Her common bile duct measured at 0.5 cm. She had a [address] scan of the abdomen and pelvis that showed gallbladder wall thickening and pericholecystic fluid. IMPRESSION: 1. Acute acalculous cholecystitis. The patient is somewhat frail and has multiple comorbidities. She presents with sepsis syndrome and she is being treated with broad-spectrum antibiotics. She does not have signs of obvious cholangitis, given the common bile duct of only 0.5 cm. I discussed her case with General Surgery, Dr. Tong, and ultimately, we will plan on doing a HIDA scan to confirm cholecystitis or not, and if this is confirmed, the next step will be cholecystostomy tube. 2. Atrial fibrillation, on chronic anticoagulation. Her INR will need to be improved before Radiology would perform cholecystostomy. 3. Abnormal liver function tests. Mixed hepatocellular and cholestatic pattern. I believe this is more likely secondary to the sepsis rather than biliary obstruction. RECOMMENDATIONS: 1. Await blood cultures. 2. Broad-spectrum antibiotics. 3. Plan is for HIDA scan today. If the HIDA scan is abnormal or does not show filling of the gallbladder, then the next step will be cholecystostomy. If the HIDA scan is normal, then we will need to consider other sources for infection. Job ID: [id number]
[2019-01-29] MEDS: Pantoprazole 40 MG VIAL IVP SCH (20:28)
--- NOTE | 2019-01-29 21:58 | PDOC.EVN ---
Event Note - Event Note Event Note: Blood cultures positive for Gram - rods. Patient receiving Zosyn and will continue. She is afebrile.
[2019-01-30] MEDS: Piperacillin/Tazobactam 3.375 GM in Sodium Chloride 0.9% 100 ML IVPB SCH ×5 (00:21→23:27)
[2019-01-30] MEDS: NS 0.9% w/ 40 MEQ KCL 1,000 ML IV SCH ×2 (00:21→14:00)
[2019-01-30 04:56] LABS: INR-International Normal Ratio 2.4; PTT 46.6 SEC (22.9-36.1); Prothrombin Time 25.8 SEC (12.0-14.7)
[2019-01-30 05:03] LABS: #Lymphocytes 1.5 thou/uL (1.20-3.40); #Monocytes 0.6 thou/uL (0.11-0.59); #Neutrophils 13.3 thou/uL (1.40-6.50); %Basophils 0.1 % (0.0-1.0); %Eosinophils 0.1 % (0.0-10.0); %Lymphocytes 9.4 % (21.0-51.0); %Neutrophils 86.3 % (42.0-75.0); Hemoglobin 13.1 g/dL (12.0-16.0); Mean Corpuscular HGB CONC 33.3 g/dL (32.0-36.0); Mean Corpuscular Hemoglobin 30.2 pg (27.0-31.0); Mean Corpuscular Volume 90.7 fL (78.0-98.0); Mean Platelet Volume 10.7 fL (7.4-10.4); Platelet Count 182 thou/uL (130-400); RBC Distribution Width 12.7 % (11.5-14.5); Red Blood Cell (RBC) Count 4.33 mill/uL (4.20-5.40); White Blood Cell (WBC) Count 15.4 thou/uL (4.8-10.8)
[2019-01-30 05:14] LABS: ALT (SGPT) 326 U/L (8-55); AST (SGOT) 150 U/L (5-34); Albumin 3.3 g/dL (3.4-4.8); Alkaline Phosphatase 186 U/L (40-150); Anion Gap 12 mmol/L (10-20); BUN (Urea Nitrogen) 16 mg/dL (9.8-20.1); Bilirubin, Total 1.3 mg/dL (0.2-1.2); Calc. Creatinine Clearance 75 mL/min (70-130); Calcium 8.4 mg/dL (7.8-10.44); Carbon Dioxide 26 mmol/L (23-31); Chloride 105 mmol/L (98-107); Estimated GFR-MDRD 67; Globulin 2.7 g/dL (2.4-3.5); Glucose 84 mg/dL (83-110); Potassium 3.4 mmol/L (3.5-5.1); Sodium 140 mmol/L (136-145)
[2019-01-30] MEDS ORDERED: metFORMIN 500 MG TAB PO SCH (08:00)
[2019-01-30] MEDS ORDERED: Lisinopril 10 MG TAB PO SCH (09:00)
[2019-01-30] MEDS: Pantoprazole 40 MG VIAL IVP SCH ×2 (10:25→20:59)
[2019-01-30] MEDS ORDERED: Vancomycin HCl 1.5 GM in Sodium Chloride 0.9% 250 ML 300 ML IVPB SCH (11:00)
--- NOTE | 2019-01-30 11:18 | NM ---
NUCLEAR MEDICINE HEPATOBILIARY SCAN: HISTORY: Thickened gallbladder wall. No evidence of gallstones on ultrasound. Evaluation of gallbladder func tion. TECHNIQUE: The examination was performed using 5.4 millicuries of 99m technetium mebrofenin, administered intrav enously. The patient had been pre-treated with 1.8 mcg of CCK. FINDINGS: There is prompt opacification of the gallbladder at approximately 18 minutes. Bowel activity is not seen over the 60 minute time frame of this exam, but there is no dilatation of the common duct or the intrahepatic ducts. The liver parenchyma shows normal distribution of the radiopharmaceutical. IMPRESSION: Unremarkable hepatobiliary scan. Opacification of the gallbladder is within the normal range. POS: OFF
--- NOTE | 2019-01-30 13:56 | PRG ---
DATE OF SERVICE: 01/30/2019 SUBJECTIVE: Ms. Garcia feels better today, but she does still have some aching upper abdominal and lower abdominal pain. She has had a normal brown stool this morning that was formed. She has had some dark color to her urine. OBJECTIVE: VITAL SIGNS: Temperature is 98.1, pulse 71, and blood pressure 145/72. GENERAL: She is in no acute distress. Alert and oriented x3. LUNGS: Clear to auscultation bilaterally. HEART: Regular rate and rhythm. ABDOMEN: Soft, mild tenderness diffusely without guarding. Bowel sounds are present. EXTREMITIES: No lower extremity edema. LABORATORY DATA: White blood cell count is down to 15.4 from 20.9 yesterday, hemoglobin is 13.1, and platelets 182. INR 2.4. Bilirubin 1.3, AST 150, ALT 326, and alkaline phosphatase 186. IMPRESSION: Sepsis with blood cultures growing Escherichia coli. The source of the sepsis is not directly identified. She did have suspicion of inflammatory changes around the gallbladder by CT scan, however, the HIDA scan was negative. She does not have a dilated bile duct, which suggests that she does not have cholangitis as the source for her sepsis. She does report some brown color to the urine and I will request urinalysis to evaluate for source of her sepsis. She does not have any diarrhea or blood in the stool suggest a gastrointestinal inflammatory source is the primary source of her E coli sepsis. RECOMMENDATIONS: 1. Check urinalysis and culture. 2. We will continue to follow clinical response to the Zosyn. She is doing better. 3. Advance her diet. Job ID: [id number]
[2019-01-30] MEDS ORDERED: Potassium Chloride 20 MEQ TAB PO SCH (14:30)
--- NOTE | 2019-01-30 14:36 | PDOC.HOSPP ---
- Subjective Encounter Date: 01/30/19 Encounter Time: 14:34 Subjective: 83 y/o female with Afib on coumadin, aortic stenosis, DM and HTn admitteed with acute abdominal pain associated with nausea, vomiting, fever and abnormal LFT. Imaging CT/US showed gall bladder thickening concerning for cholecystitis but subsequent HIDA was unremarkable. Abdominal pain persists but better. Blood culture grew E coli/gram neg bacilli. - Objective Vital Signs & Weight: Vital Signs (12 hours) Temp Pulse Resp BP Pulse Ox 01/30/19 11:40 98.1 F 71 22 H 145/72 H 92 L 01/30/19 07:49 98.4 F 85 20 173/80 H 95 01/30/19 04:00 98.3 F 56 L 18 156/86 H 93 L Weight Weight 202 lb I&O: 01/29/19 01/30/19 01/31/19 06:59 06:59 06:59 Intake Total 2024 Balance 2024 Result Diagrams: 01/30/19 04:06 01/30/19 04:06 Additional Labs: Accuchecks 01/30/19 01/30/19 01/29/19 11:31 05:41 20:37 POC Glucose 102 88 102 01/29/19 15:31 POC Glucose 88 Hospitalist ROS - Medication Medications: Active Medications Generic Name Dose Route Start Last Admin Trade Name Freq PRN Reason Stop Dose Admin Piperacillin Sod/Tazobactam 100 mls @ 200 mls/hr 01/29/19 18:00 01/30/19 05: 27 Sod 3.375 gm/ Sodium Chloride IVPB 100 mls Q6HR CECILY Administration Vancomycin HCl 1.5 gm/ Sodium 300 mls @ 200 mls/hr 01/30/19 11:00 01/30/19 12 :04 Chloride IVPB 300 mls Q24HR CECILY Administration Pantoprazole Sodium 40 mg 01/29/19 21:00 01/30/19 10:25 Protonix IVP 40 mg Q12HR CECILY Administration - Exam General Appearance: awake alert Eye: anicteric sclera ENT: normocephalic atraumatic, moist mucosa Neck: supple Heart: irregular Respiratory: no wheezes, no ronchi, normal chest expansion Respiratory - other findings: fair air entry bilaterally Gastrointestinal: soft, non-distended, normal bowel sounds Gastrointestinal - other findings: mild to moderate RUQ, RLQ and epigastric and periumbilical tenderness noted Extremities: no cyanosis, 1+ LE edema Neurological: cranial nerve grossly intact, no focal deficits Musculoskeletal: generalized weakness Psychiatric: normal affect, A&O x 3 Hosp A/P (1) Sepsis Code(s): A41.9 - SEPSIS, UNSPECIFIED ORGANISM Status: Acute (2) E coli bacteremia Code(s): R78.81 - BACTEREMIA Status: Acute (3) Abdominal pain Code(s): R10.9 - UNSPECIFIED ABDOMINAL PAIN Status: Acute (4) Nausea & vomiting Code(s): R11.2 - NAUSEA WITH VOMITING, UNSPECIFIED Status: Acute (5) Atrial fibrillation with controlled ventricular rate Code(s): I48.91 - UNSPECIFIED ATRIAL FIBRILLATION Status: Chronic (6) DM type 2 (diabetes mellitus, type 2) Status: Chronic Qualifiers: Diabetes mellitus penitentiary insulin use: without remote computer terminal operator use Diabetes mellitus complication status: without complication Qualified Code(s): E11.9 - Type 2 diabetes mellitus without complications (7) HTN (hypertension) Code(s): I10 - ESSENTIAL (PRIMARY) HYPERTENSION Status: Chronic Qualifiers: Hypertension type: essential hypertension Qualified Code(s): I10 - Essential (primary) hypertension (8) Hypokalemia Code(s): E87.6 - HYPOKALEMIA Status: Chronic (9) DAYAN (obstructive sleep apnea) Code(s): G47.33 - OBSTRUCTIVE SLEEP APNEA (ADULT) (PEDIATRIC) Status: Chronic (10) Obesity (BMI 30-39.9) Code(s): E66.9 - OBESITY, UNSPECIFIED Status: Chronic (11) Abnormal LFTs Code(s): R94.5 - ABNORMAL RESULTS OF LIVER FUNCTION STUDIES Status: Acute (12) Aortic stenosis Code(s): I35.0 - NONRHEUMATIC AORTIC (VALVE) STENOSIS Status: Acute (13) Chronic anticoagulation Code(s): Z79.01 - OUTREACH DIRECTOR (CURRENT) USE OF ANTICOAGULANTS Status: Acute - Plan Continue zosyn Await microbe sysceptibility Source of infection remained unclear. Most likely billiary/GI tract. UA on presentation was unremarkble Appreciate input from cardiology, GI and surgery Follow CMP and CBC. Diet as per GI/surgery
--- NOTE | 2019-01-30 14:57 | PRG ---
DATE OF SERVICE: 01/30/2019 SUBJECTIVE: The patient says she feels a little bit better. No nausea, vomiting. She is actually a little hungry. OBJECTIVE: VITAL SIGNS: Temperature 98, pulse 71, and blood pressure 145/72. GENERAL: She is awake, alert. SKIN: No jaundice. LUNGS: Clear ABDOMEN: Soft. Some mild epigastric tenderness, but no peritoneal signs. LABORATORY DATA: [place] [address] [place] [address], H and H are 13 and 39, platelet count 182. Her T bilirubin is 1.3, AST 150, ALT 326, alkaline phosphatase 186, lipase normal, which is improved. The HIDA scan showed visualization of the gallbladder. No obstruction. No evidence of acute cholecystitis. Again, there was no stones on ultrasound or CT. ASSESSMENT: She does not have a biliary obstruction. At this time, things are getting better. She may have passed a gallstone. She is at higher risk for surgery. I do not have a clear indication for surgery at this time. PLAN: Continue IV antibiotics. Follow lab. Further management by GI. Job ID: [id number]
[2019-01-30 21:22] LABS: Bacteria/HPF None Seen HPF (None Seen); Bilirubin Negative (Negative); Blood, Urine 1+ (Negative); Clarity Clear (Clear); Glucose, Urine (Dipstick) Normal (Negative); Leukocyte Negative Leu/uL (Negative); Nitrite Negative (Negative); Protein, Urine (Dipstick) 100 mg/dL (Neg-Trace); RBC/HPF 0-3 HPF (0-3); Urobilinogen Normal mg/dL (Less than 2); WBC/HPF 0-3 HPF (0-3)
[2019-01-30 21:24] LABS: Urine Culture Reflex No No
[2019-01-31 04:25] LABS: #Lymphocytes 1.1 thou/uL (1.20-3.40); #Monocytes 0.5 thou/uL (0.11-0.59); %Eosinophils 0.1 % (0.0-10.0); %Lymphocytes 8.3 % (21.0-51.0); %Monocytes 3.6 % (0.0-10.0); %Neutrophils 88.1 % (42.0-75.0); Mean Corpuscular Volume 90.7 fL (78.0-98.0); Mean Platelet Volume 10.7 fL (7.4-10.4); Platelet Count 196 thou/uL (130-400); RBC Distribution Width 12.7 % (11.5-14.5); Red Blood Cell (RBC) Count 4.34 mill/uL (4.20-5.40); White Blood Cell (WBC) Count 13.7 thou/uL (4.8-10.8)
[2019-01-31 04:30] LABS: INR-International Normal Ratio 3.2; PTT 56.5 SEC (22.9-36.1); Prothrombin Time 32.8 SEC (12.0-14.7)
[2019-01-31] MEDS: Piperacillin/Tazobactam 3.375 GM in Sodium Chloride 0.9% 100 ML IVPB SCH ×3 (05:12→17:47)
[2019-01-31 05:37] LABS: ALT (SGPT) 213 U/L (8-55); AST (SGOT) 65 U/L (5-34); Albumin 3.3 g/dL (3.4-4.8); Alkaline Phosphatase 161 U/L (40-150); Anion Gap 17 mmol/L (10-20); BUN (Urea Nitrogen) 16 mg/dL (9.8-20.1); Bilirubin, Total 1.1 mg/dL (0.2-1.2); Calc. Creatinine Clearance 81 mL/min (70-130); Calcium 8.7 mg/dL (7.8-10.44); Carbon Dioxide 20 mmol/L (23-31); Chloride 108 mmol/L (98-107); Estimated GFR-MDRD 73; Glucose 104 mg/dL (83-110); Potassium 3.9 mmol/L (3.5-5.1); Protein, Total 6.3 g/dL (6.0-8.3); Sodium 141 mmol/L (136-145)
[2019-01-31] MEDS: Pantoprazole 40 MG VIAL IVP SCH ×2 (08:52→21:14)
[2019-01-31] MEDS: Vancomycin HCl 1 GM in Premix Bag 1 BAG IVPB SCH ×2 (11:41→23:01)
--- NOTE | 2019-01-31 15:06 | PRG ---
DATE OF SERVICE: 01/31/2019 SUBJECTIVE: She says she feels a little bit better, but she is having a lot of diarrhea, really denies any abdominal pain. OBJECTIVE: VITAL SIGNS: Her temperature is 97.8, pulse 66, blood pressure 154/83. GENERAL: She does not appear to be in any distress. HEENT: Unremarkable. LUNGS: Clear. HEART: Regular rate and rhythm. ABDOMEN: Morbidly obese, soft, nontender. LABORATORY DATA: Her white count is down from 20,000 to 13,000. Her electrolytes are fine. Her LFTs are just a little elevated, but her bilirubin is normal. She is growing E coli from her blood. ASSESSMENT: Diarrhea, rule out Clostridium difficile colitis. PLAN: Stool for culture. Job ID: [id number]
--- NOTE | 2019-01-31 17:51 | PDOC.HOSPP ---
- Subjective Encounter Date: 01/31/19 Encounter Time: 17:49 Subjective: Ms. Garcia was seen today in follow-up of abdominal pain. She says she is feeling a little better today. She had some nausea last night. - Objective Vital Signs & Weight: Vital Signs (12 hours) Temp Pulse Resp BP BP Pulse Ox 01/31/19 17:48 60 183/90 H 01/31/19 16:00 97.8 F 60 20 183/90 H 90 L 01/31/19 11:19 97.8 F 66 18 154/83 H 92 L 01/31/19 08:00 97.5 F L 76 20 182/87 H 92 L Weight Admit Weight 202 lb Weight 202 lb I&O: 01/30/19 01/31/19 02/01/19 06:59 06:59 06:59 Intake Total 2024 700 850 Balance 2024 700 850 Result Diagrams: 01/31/19 03:42 01/31/19 03:41 Additional Labs: Accuchecks 01/31/19 01/31/19 01/31/19 16:42 10:47 06:05 POC Glucose 116 H 120 H 98 01/30/19 01/30/19 21:18 16:44 POC Glucose 115 H 113 H Hospitalist ROS - Medication Medications: Active Medications Generic Name Dose Route Start Last Admin Trade Name Freq PRN Reason Stop Dose Admin Hydralazine HCl 10 mg 01/29/19 15:08 01/31/19 17:48 Apresoline SLOW IVP 10 mg Q4H PRN Administration SBP > 180 and HR < 70 Piperacillin Sod/Tazobactam 100 mls @ 200 mls/hr 01/29/19 18:00 01/31/19 17: 47 Sod 3.375 gm/ Sodium Chloride IVPB 100 mls Q6HR CECILY Administration Vancomycin HCl 1 gm/ Device 200 mls @ 200 mls/hr 01/31/19 11:00 01/31/19 11: 41 IVPB 200 mls 1100,2300 CECILY Administration Metoprolol Succinate 25 mg 01/31/19 09:00 01/31/19 08:52 Toprol Xl PO 25 mg DAILY CECILY Administration Ondansetron HCl 4 mg 01/29/19 11:03 01/30/19 23:50 Zofran IVP 4 mg Q6H PRN Administration Nausea/Vomiting Pantoprazole Sodium 40 mg 01/29/19 21:00 01/31/19 08:52 Protonix IVP 40 mg Q12HR CECILY Administration - Exam Eye: PERRL, anicteric sclera ENT: normocephalic atraumatic Heart: RRR, no murmur, no gallops, no rubs, normal peripheral pulses Respiratory: CTAB, no wheezes, no rales, no ronchi, normal chest expansion, no tachypnea, normal percussion Gastrointestinal: soft, non-distended, normal bowel sounds, no hepatomegaly, no splenomegaly, tender to palpation (+ mild epigastric tenderness, no rebound or gaurding) Extremities: no cyanosis, no clubbing, 1+ LE edema Neurological: no focal deficits Hosp A/P (1) Abdominal pain Code(s): R10.9 - UNSPECIFIED ABDOMINAL PAIN Status: Acute (2) Atrial fibrillation Code(s): I48.91 - UNSPECIFIED ATRIAL FIBRILLATION Status: Chronic (3) E coli bacteremia Code(s): R78.81 - BACTEREMIA Status: Acute (4) DM type 2 (diabetes mellitus, type 2) Status: Chronic Qualifiers: Diabetes mellitus halfway insulin use: without halfway use Diabetes mellitus complication status: without complication Qualified Code(s): E11.9 - Type 2 diabetes mellitus without complications (5) HTN (hypertension) Code(s): I10 - ESSENTIAL (PRIMARY) HYPERTENSION Status: Chronic Qualifiers: Hypertension type: essential hypertension Qualified Code(s): I10 - Essential (primary) hypertension (6) Chronic anticoagulation Code(s): Z79.01 - COPIER AND PRINTER FIELD TECHNICIAN (CURRENT) USE OF ANTICOAGULANTS Status: Acute (7) DAYAN (obstructive sleep apnea) Code(s): G47.33 - OBSTRUCTIVE SLEEP APNEA (ADULT) (PEDIATRIC) Status: Chronic - Plan * Abdominal pain- ? etiology- HIDA scan was negative- plan is for MRI of the abdomen in the AM * E. Coli bacteremia- ? abdominal source- continue Zosyn- can discontinue IV Vancomycin * Diarrhea- better now- C. Diff was negative- will treat symptomatically * AFIB- her heart rate is stable- she is on coumadin for CVA prophylaxis * HTN- blood pressure is elevated- Metoprolol, and Nifedipine were started today * DAYAN- she is on CPAP 4cmH20- this can be continued while in the hospital
--- NOTE | 2019-01-31 19:16 | PRG ---
DATE OF SERVICE: 01/31/2019 SUBJECTIVE: Ms. Garcia started having diarrhea today. She has had no nausea or vomiting. Some vague upper abdominal pain. OBJECTIVE: VITAL SIGNS: Temperature 97.8, pulse 60, and blood pressure 183/90. GENERAL: She is in no acute distress. Awake and alert. LUNGS: Clear to auscultation bilaterally. HEART: Regular rate and rhythm without murmur. ABDOMEN: Soft, nontender, and nondistended. Bowel sounds are present. EXTREMITIES: No lower extremity edema. IMPRESSION: 1. Escherichia coli sepsis. The etiology of the sepsis has not been clearly identified. Her urine was clear. Gallbladder appeared thickening by imaging, but the HIDA scan was negative. Her liver tests have been elevated, however, I think this is more likely secondary to the sepsis rather than an obstructive biliary pattern. Her common bile duct was not dilated by ultrasound. She has had prior colon surgeries and now is having diarrhea, likely secondary to the antibiotics. I doubt the diarrhea is indicating an enteric infection that would be the source for the bacteremia, could be. 2. Abnormal liver function tests. Again, I suspect this is secondary to the sepsis. 3. Diarrhea. Clostridium difficile was negative. RECOMMENDATIONS: MRCP and MRI of the biliary system tomorrow. Job ID: [id number]
[2019-01-31] MEDS ORDERED: Warfarin Sodium 5 MG TAB PO SCH (21:00)
[2019-01-31] MEDS: NIFEdipine XL 30 MG TAB PO SCH (21:13)
[2019-02-01] MEDS: Piperacillin/Tazobactam 3.375 GM in Sodium Chloride 0.9% 100 ML IVPB SCH ×5 (00:21→23:57)
[2019-02-01] MEDS: Pantoprazole 40 MG VIAL IVP SCH ×2 (09:20→21:20)
[2019-02-01] MEDS: NIFEdipine XL 30 MG TAB PO SCH ×2 (09:20→21:19)
[2019-02-01 09:42] LABS: #Eosinphils 0.1 thou/uL (0.0-0.7); #Lymphocytes 1.3 thou/uL (1.20-3.40); #Monocytes 0.5 thou/uL (0.11-0.59); #Neutrophils 5.9 thou/uL (1.40-6.50); %Basophils 0.4 % (0.0-1.0); %Eosinophils 1.3 % (0.0-10.0); %Lymphocytes 16.1 % (21.0-51.0); %Monocytes 6.1 % (0.0-10.0); %Neutrophils 76.2 % (42.0-75.0); Hemoglobin 13.3 g/dL (12.0-16.0); Mean Corpuscular HGB CONC 33.3 g/dL (32.0-36.0); Mean Corpuscular Hemoglobin 29.6 pg (27.0-31.0); Mean Corpuscular Volume 88.8 fL (78.0-98.0); Platelet Count 200 thou/uL (130-400); RBC Distribution Width 12.3 % (11.5-14.5); Red Blood Cell (RBC) Count 4.48 mill/uL (4.20-5.40); White Blood Cell (WBC) Count 7.8 thou/uL (4.8-10.8)
[2019-02-01 09:58] LABS: ALT (SGPT) 142 U/L (8-55); AST (SGOT) 34 U/L (5-34); Albumin 3.3 g/dL (3.4-4.8); Alkaline Phosphatase 146 U/L (40-150); Anion Gap 16 mmol/L (10-20); BUN (Urea Nitrogen) 12 mg/dL (9.8-20.1); Bilirubin, Total 0.9 mg/dL (0.2-1.2); Calc. Creatinine Clearance 82 mL/min (70-130); Calcium 8.8 mg/dL (7.8-10.44); Carbon Dioxide 23 mmol/L (23-31); Chloride 105 mmol/L (98-107); Estimated GFR-MDRD 74; Globulin 3.1 g/dL (2.4-3.5); Glucose 107 mg/dL (83-110); Potassium 3.5 mmol/L (3.5-5.1); Protein, Total 6.4 g/dL (6.0-8.3); Sodium 140 mmol/L (136-145)
[2019-02-01] MEDS: Vancomycin HCl 1 GM in Premix Bag 1 BAG IVPB SCH (10:36)
--- NOTE | 2019-02-01 10:58 | MRI ---
MRI ABDOMEN WITH AND WITHOUT IV CONTRAST: MRCP: HISTORY: Cholelithiasis with cholecystitis. Abdominal pain. CORRELATION: CT scan and gallbladder ultrasound from 01/29/2019. FINDINGS: There are bilateral small pleural effusions, right larger than left, with adjacent atelectatic change s. The liver demonstrates no evidence of mass or abnormal biliary ductal dilatation. Tiny gallstone s are present. No abnormal biliary or pancreatic ductal dilatation is seen. There is a filling defe ct in the distal common bile duct, suspicious for choledocholithiasis. The proximal common duct is p rominent and tapers to a normal diameter in the distal aspect. The spleen and pancreas are normal. There are bilateral renal cysts. There is thickening of the adrenal glands. There is edema in the w all of the gallbladder. There is no evidence of aneurysmal dilatation of the abdominal aorta. No ascites is seen. There are degenerative changes in the spine. IMPRESSION: 1. Bilateral pleural effusions. 2. Cholelithiasis. 3. Choledocholithiasis. 4. Bilateral renal cysts. POS: OFF
--- NOTE | 2019-02-01 11:36 | PRG ---
DATE OF SERVICE: 02/01/2019 SUBJECTIVE: The patient reports that she is feeling better. She is hungry. She wants to eat. Less pain. OBJECTIVE: VITAL SIGNS: Temperature 97.6, pulse 62, blood pressure 141/67. GENERAL: She is awake and alert. HEENT: No jaundice. LUNGS: Clear. HEART: Regular rate and rhythm. ABDOMEN: She has some mild right upper quadrant tenderness. No peritoneal signs. No Clement sign. IMAGING STUDIES: She had MRCP today and this shows that she does have gallstones as well as probable choledocholithiasis. ASSESSMENT: Cholecystitis with choledocholithiasis. PLAN: We will check coags. She may need vitamin K. She may need ERCP. Job ID: [id number]
[2019-02-01 11:40] LABS: INR-International Normal Ratio 3.4; Prothrombin Time 33.7 SEC (12.0-14.7)
[2019-02-01] MEDS ORDERED: Phytonadione 10 MG/ML AMP PO SCH (14:15)
--- NOTE | 2019-02-01 14:59 | PDOC.HOSPP ---
- Subjective Encounter Date: 02/01/19 Encounter Time: 14:58 Subjective: Ms. Garcia was seen today in follow-up of abdominal pain, and E Coli bacteremia. she notes some diarrhea again today. Abdominal pain has improved. - Objective Vital Signs & Weight: Vital Signs (12 hours) Temp Pulse Resp BP BP Pulse Ox 02/01/19 11:22 97.6 F 75 16 143/90 H 96 02/01/19 09:20 62 141/67 H 93 L 02/01/19 07:27 97.6 F 62 18 141/67 H 93 L 02/01/19 03:05 98.2 F 65 16 166/71 H 94 L Weight Admit Weight 202 lb Weight 202 lb I&O: 01/31/19 02/01/19 02/02/19 06:59 06:59 06:59 Intake Total 700 1800 Output Total 1 Balance 700 1799 Result Diagrams: 02/01/19 09:35 02/01/19 09:35 Additional Labs: Accuchecks 02/01/19 02/01/19 01/31/19 11:28 05:01 21:51 POC Glucose 116 H 88 88 01/31/19 16:42 POC Glucose 116 H Hospitalist ROS - Medication Medications: Active Medications Generic Name Dose Route Start Last Admin Trade Name Freq PRN Reason Stop Dose Admin Hydralazine HCl 10 mg 01/29/19 15:08 01/31/19 17:48 Apresoline SLOW IVP 10 mg Q4H PRN Administration SBP > 180 and HR < 70 Piperacillin Sod/Tazobactam 100 mls @ 200 mls/hr 01/29/19 18:00 02/01/19 11: 53 Sod 3.375 gm/ Sodium Chloride IVPB 100 mls Q6HR CECILY Administration Metoprolol Succinate 25 mg 01/31/19 09:00 02/01/19 09:20 Toprol Xl PO 25 mg DAILY CECILY Administration Nifedipine 30 mg 01/31/19 21:00 02/01/19 09:20 Procardia Xl PO 30 mg BID CECILY Administration Ondansetron HCl 4 mg 01/29/19 11:03 01/30/19 23:50 Zofran IVP 4 mg Q6H PRN Administration Nausea/Vomiting Pantoprazole Sodium 40 mg 01/29/19 21:00 02/01/19 09:20 Protonix IVP 40 mg Q12HR CECILY Administration Phytonadione 5 mg 02/01/19 14:15 02/01/19 14:56 Aquamephyton PO 02/01/19 16:15 5 mg NOW CECILY Administration - Exam Eye: PERRL Heart: RRR, no murmur, no gallops, no rubs, normal peripheral pulses Respiratory: CTAB, no wheezes, no rales, no ronchi, normal chest expansion, no tachypnea, normal percussion Gastrointestinal: soft, non-distended, normal bowel sounds, no palpable masses, no hepatomegaly, no splenomegaly, tender to palpation (+ mile epigastric tenderness) Hosp A/P (1) Abdominal pain Code(s): R10.9 - UNSPECIFIED ABDOMINAL PAIN Status: Acute (2) Atrial fibrillation Code(s): I48.91 - UNSPECIFIED ATRIAL FIBRILLATION Status: Chronic (3) E coli bacteremia Code(s): R78.81 - BACTEREMIA Status: Acute (4) DM type 2 (diabetes mellitus, type 2) Status: Chronic Qualifiers: Diabetes mellitus detention insulin use: without intermodal owner operator truck driver use Diabetes mellitus complication status: without complication Qualified Code(s): E11.9 - Type 2 diabetes mellitus without complications (5) HTN (hypertension) Code(s): I10 - ESSENTIAL (PRIMARY) HYPERTENSION Status: Chronic Qualifiers: Hypertension type: essential hypertension Qualified Code(s): I10 - Essential (primary) hypertension (6) Chronic anticoagulation Code(s): Z79.01 - PHY THERAPIST (CURRENT) USE OF ANTICOAGULANTS Status: Acute (7) DAYAN (obstructive sleep apnea) Code(s): G47.33 - OBSTRUCTIVE SLEEP APNEA (ADULT) (PEDIATRIC) Status: Chronic - Plan * Abdominal pain- Due to choledocholithiasis- plan is for Cholecystectomy on Wednesday * E. Coli bacteremia- due to above- will discontinue Vancomycin, and continue Zosyn * Diarrhea- treat symptomatically * AFIB- her heart rate is stable- coumadin is being held for surgery- and she has been given a dose of Vitamin K * HTN- blood pressure is elevated- blood pressure is a bit better today * DAYAN- she is on CPAP 4cmH20- this can be continued while in the hospital
[2019-02-01] MEDS: Loperamide HCl 2 MG CAP PO PRN ×3 (15:04→23:57)
--- NOTE | 2019-02-01 15:58 | PRG ---
DATE OF SERVICE: 02/01/2019 SUBJECTIVE: Ms. Garcia feels much better. She has no abdominal pain, nausea, or vomiting. OBJECTIVE: VITAL SIGNS: Temperature 97.6, pulse 75, blood pressure 143/90. GENERAL: She is in no acute distress. Alert and oriented x3. LUNGS: Clear to auscultation bilaterally. HEART: Regular rate and rhythm without murmur. ABDOMEN: Soft. Minimal tenderness in the epigastric region without guarding. Bowel sounds are present. EXTREMITIES: No lower extremity edema. LABORATORY DATA: White blood cell count 7.8, hemoglobin 13.3, platelets 200. INR 3.4, bilirubin 0.9, albumin 3.3. IMPRESSION: 1. Choledocholithiasis. I reviewed the MRI images with Dr. Bassett. On the axial images on series 3, image #28, there appears to be an obvious small filling defect in the middle of the distal common bile duct. This appears very similar in size to the stones in the gallbladder. 2. Escherichia coli sepsis secondary to choledocholithiasis. Her duct appears to be draining now as her liver tests have almost returned to normal. Her white blood cell count is normal. She has responded well to the antibiotics. 3. Atrial fibrillation, on anticoagulation. She will require ERCP and likely laparoscopic cholecystectomy to follow. We will have to reverse her warfarin. RECOMMENDATIONS: 1. I will give vitamin K 5 mg p.o. today. 2. I will schedule her for ERCP for Wednesday morning. Hopefully, this will give time for her INR to correct. 3. Continue antibiotics. Job ID: [id number]
[2019-02-02] MEDS: Loperamide HCl 2 MG CAP PO PRN ×4 (03:03→22:36)
[2019-02-02] MEDS: Piperacillin/Tazobactam 3.375 GM in Sodium Chloride 0.9% 100 ML IVPB SCH ×3 (05:10→18:14)
[2019-02-02 07:05] LABS: #Eosinphils 0.1 thou/uL (0.0-0.7); #Lymphocytes 1.4 thou/uL (1.20-3.40); #Monocytes 0.5 thou/uL (0.11-0.59); #Neutrophils 5.1 thou/uL (1.40-6.50); %Basophils 0.2 % (0.0-1.0); %Eosinophils 1.8 % (0.0-10.0); %Lymphocytes 19.7 % (21.0-51.0); %Monocytes 6.5 % (0.0-10.0); %Neutrophils 71.9 % (42.0-75.0); Mean Corpuscular HGB CONC 33.2 g/dL (32.0-36.0); Mean Corpuscular Hemoglobin 29.7 pg (27.0-31.0); Mean Corpuscular Volume 89.3 fL (78.0-98.0); Mean Platelet Volume 10.1 fL (7.4-10.4); Platelet Count 237 thou/uL (130-400); RBC Distribution Width 12.3 % (11.5-14.5); Red Blood Cell (RBC) Count 4.38 mill/uL (4.20-5.40); White Blood Cell (WBC) Count 7.1 thou/uL (4.8-10.8)
[2019-02-02 07:18] LABS: INR-International Normal Ratio 1.3; Prothrombin Time 15.8 SEC (12.0-14.7)
[2019-02-02 07:31] LABS: ALT (SGPT) 105 U/L (8-55); AST (SGOT) 27 U/L (5-34); Albumin 3.4 g/dL (3.4-4.8); Alkaline Phosphatase 133 U/L (40-150); Anion Gap 15 mmol/L (10-20); BUN (Urea Nitrogen) 9 mg/dL (9.8-20.1); Bilirubin, Total 0.9 mg/dL (0.2-1.2); Calc. Creatinine Clearance 84 mL/min (70-130); Calcium 8.7 mg/dL (7.8-10.44); Carbon Dioxide 26 mmol/L (23-31); Chloride 104 mmol/L (98-107); Estimated GFR-MDRD 76; Globulin 3.1 g/dL (2.4-3.5); Glucose 108 mg/dL (83-110); Protein, Total 6.5 g/dL (6.0-8.3); Sodium 142 mmol/L (136-145)
[2019-02-02] MEDS: NIFEdipine XL 30 MG TAB PO SCH ×2 (08:27→22:37)
[2019-02-02] MEDS ORDERED: Potassium Chloride 40 MEQ in Sodium Chloride 0.9% 500 ML IVPB SCH (08:45)
[2019-02-02] MEDS ORDERED: Potassium Chloride 40 MEQ in Sodium Chloride 0.9% 250 ML 250 ML IVPB SCH (09:00)
[2019-02-02] MEDS: Pantoprazole 40 MG VIAL IVP SCH (09:40)
--- NOTE | 2019-02-02 14:10 | PQF ---
CLINICAL DOCUMENTATION IMPROVEMENT CLARIFICATION FORM: ICD-10 Updated PLEASE DO AN ADDENDUM TO THE PROGRESS NOTE WITH ANY DOCUMENTATION UPDATES OR ADDITIONS AND CARRY THROUGH TO DC SUMMARY. THANK YOU. DATE: 02/02/19 ATTN: DR. BRASHER Please exercise your independent, professional judgment in responding to the clarification form. Clinical indicators are provided on the bottom of this form for your review Please check appropriate box(s) to clarify if the following diagnosis has been ruled in or ruled out: "SEPSIS" [ x ] Ruled in diagnosis [ x ] Continue to treat [ ] Resolved [ ] Ruled out diagnosis [ ] Cannot rule out diagnosis [ ] Other diagnosis [ ] Unable to determine In addition, please specify: Present on Admission (POA): [x ] Yes [ ] No [ ] Unable to determine For continuity of documentation, please document condition throughout progress notes and discharge summary. Thank You. CLINICAL INDICATORS - SIGNS / SYMPTOMS / LABS PROGRESS NOTE 01/30: "SEPSIS" PROGRESS NOTE 01/31 (GI): "HER LIVER TESTS HAVE BEEN ELEVATED, HOWEVER, I THINK THIS MORE LIKELY SECONDARY TO THE SEPSIS RATHER THAN AN OBSTRUCTIVE BILIARY PATTERN." PROGRESS NOTE 02/01 (GI): "ESCHERICHIA COLI SEPSIS SECONDARY TO CHOLEDOCHOLITHIASIS" WBC 01/29: 20.9 RISKS: ECOLI BACTEREMIA (PROGRESS NOTE 01/30) TREATMENT: BLOOD CULTURES (01/29) STOOL CULTURES (01/31) IV VANCOMYCIN (ER) IV ZOSYN (ER-PRESENT) IV FLUIDS (ER) SAP Patent Solicitor [employer] Win[employer] Viewer (This form is maintained as a part of the permanent medical record) 2014 [employer]. All Rights Reserved EBONY [email or web address] Office: [phone] [facility] HOSPITALE[facility]
--- NOTE | 2019-02-02 14:53 | PDOC.HOSPP ---
- Subjective Encounter Date: 02/02/19 Encounter Time: 10:49 Subjective: 83 y/o female with Afib on coumadin, aortic stenosis, DM and HTn admitteed with acute abdominal pain associated with nausea, vomiting, fever and abnormal LFT. CT/US showed gall bladder thickening concerning for cholecystitis but subsequent HIDA was unremarkable. Blood culture grew E coli and further eval with MRI is suggestive of choledocolithiasis. Patient is for ERCP. Feeling better overall - Objective Vital Signs & Weight: Vital Signs (12 hours) Temp Pulse Resp BP Pulse Ox 02/02/19 11:31 97.6 F 94 16 141/73 H 94 L 02/02/19 08:27 91 94 L 02/02/19 07:24 97.6 F 93 18 159/85 H 96 02/02/19 03:00 97.5 F L 94 18 164/82 H 95 Weight Admit Weight 202 lb Weight 202 lb I&O: 02/01/19 02/02/19 02/03/19 06:59 06:59 06:59 Intake Total 1800 1400 Output Total 1 Balance 1799 1400 Result Diagrams: 02/02/19 06:39 02/02/19 06:39 Additional Labs: Accuchecks 02/02/19 02/02/19 02/01/19 11:33 05:43 20:57 POC Glucose 111 H 99 110 02/01/19 15:47 POC Glucose 117 H Hospitalist ROS - Medication Medications: Active Medications Generic Name Dose Route Start Last Admin Trade Name Freq PRN Reason Stop Dose Admin Hydralazine HCl 10 mg 01/29/19 15:08 01/31/19 17:48 Apresoline SLOW IVP 10 mg Q4H PRN Administration SBP > 180 and HR < 70 Piperacillin Sod/Tazobactam 100 mls @ 200 mls/hr 01/29/19 18:00 02/02/19 12: 29 Sod 3.375 gm/ Sodium Chloride IVPB 100 mls Q6HR CECILY Administration Loperamide HCl 2 mg 02/01/19 14:57 02/02/19 05:48 Imodium PO 2 mg PRN PRN Administration Diarrhea/Loose Stools Metoprolol Succinate 25 mg 01/31/19 09:00 02/02/19 08:27 Toprol Xl PO 25 mg DAILY CECILY Administration Morphine Sulfate 2 mg 01/29/19 11:37 02/02/19 11:14 Morphine SLOW IVP 2 mg Q4H PRN Administration Moderate Pain (4-6) Nifedipine 30 mg 01/31/19 21:00 02/02/19 08:27 Procardia Xl PO 30 mg BID CECILY Administration Ondansetron HCl 4 mg 01/29/19 11:03 01/30/19 23:50 Zofran IVP 4 mg Q6H PRN Administration Nausea/Vomiting Pantoprazole Sodium 40 mg 01/29/19 21:00 02/02/19 09:40 Protonix IVP 40 mg Q12HR CECILY Administration - Exam General Appearance: awake alert Eye: anicteric sclera ENT: normocephalic atraumatic, moist mucosa Neck: supple Heart: RRR Respiratory: no rales, no ronchi, normal chest expansion Gastrointestinal: soft, non-distended, normal bowel sounds Extremities: 1+ LE edema Neurological: cranial nerve grossly intact, no focal deficits Psychiatric: normal affect, A&O x 3 Hosp A/P (1) Choledocholithiasis Code(s): K80.50 - CALCULUS OF BILE DUCT W/O CHOLANGITIS OR CHOLECYST W/O OBST Status: Acute (2) Sepsis Code(s): A41.9 - SEPSIS, UNSPECIFIED ORGANISM Status: Acute Qualifiers: Sepsis type: Escherichia coli (3) E coli bacteremia Code(s): R78.81 - BACTEREMIA Status: Acute (4) Abdominal pain Code(s): R10.9 - UNSPECIFIED ABDOMINAL PAIN Status: Acute (5) Nausea & vomiting Code(s): R11.2 - NAUSEA WITH VOMITING, UNSPECIFIED Status: Acute (6) Atrial fibrillation with controlled ventricular rate Code(s): I48.91 - UNSPECIFIED ATRIAL FIBRILLATION Status: Chronic (7) DM type 2 (diabetes mellitus, type 2) Status: Chronic Qualifiers: Diabetes mellitus correction insulin use: without marine oil terminal superintendent use Diabetes mellitus complication status: without complication Qualified Code(s): E11.9 - Type 2 diabetes mellitus without complications (8) HTN (hypertension) Code(s): I10 - ESSENTIAL (PRIMARY) HYPERTENSION Status: Chronic Qualifiers: Hypertension type: essential hypertension Qualified Code(s): I10 - Essential (primary) hypertension (9) Hypokalemia Code(s): E87.6 - HYPOKALEMIA Status: Chronic (10) DAYAN (obstructive sleep apnea) Code(s): G47.33 - OBSTRUCTIVE SLEEP APNEA (ADULT) (PEDIATRIC) Status: Chronic (11) Obesity (BMI 30-39.9) Code(s): E66.9 - OBESITY, UNSPECIFIED Status: Chronic (12) Abnormal LFTs Code(s): R94.5 - ABNORMAL RESULTS OF LIVER FUNCTION STUDIES Status: Acute (13) Aortic stenosis Code(s): I35.0 - NONRHEUMATIC AORTIC (VALVE) STENOSIS Status: Acute (14) Chronic anticoagulation Code(s): Z79.01 - RETIREMENT (CURRENT) USE OF ANTICOAGULANTS Status: Acute (15) Cholangitis Code(s): K83.09 - OTHER CHOLANGITIS Status: Acute - Plan Continue zosyn Replete serum potassium. Start magnesium supplementation Aaiting ERCP Follow CMP and CBC. Diet as per GI/surgery
[2019-02-02] MEDS: Potassium Chloride 20 MEQ TAB PO SCH ×2 (15:05→18:22)
[2019-02-02] MEDS: Magnesium Oxide 400 MG TAB PO SCH (22:36)
[2019-02-03] MEDS: Pantoprazole 40 MG VIAL IVP SCH ×3 (00:18→21:11)
[2019-02-03] MEDS: Piperacillin/Tazobactam 3.375 GM in Sodium Chloride 0.9% 100 ML IVPB SCH ×4 (00:18→17:52)
[2019-02-03] MEDS: Loperamide HCl 2 MG CAP PO PRN ×3 (00:20→18:41)
[2019-02-03 05:10] LABS: #Eosinphils 0.3 thou/uL (0.0-0.7); #Lymphocytes 1.4 thou/uL (1.20-3.40); #Monocytes 0.5 thou/uL (0.11-0.59); #Neutrophils 5.4 thou/uL (1.40-6.50); %Basophils 0.4 % (0.0-1.0); %Eosinophils 3.4 % (0.0-10.0); %Lymphocytes 18.7 % (21.0-51.0); %Monocytes 6.8 % (0.0-10.0); %Neutrophils 70.7 % (42.0-75.0); Hemoglobin 12.8 g/dL (12.0-16.0); Mean Corpuscular HGB CONC 32.8 g/dL (32.0-36.0); Mean Corpuscular Hemoglobin 29.5 pg (27.0-31.0); Mean Corpuscular Volume 89.7 fL (78.0-98.0); Mean Platelet Volume 9.9 fL (7.4-10.4); Platelet Count 239 thou/uL (130-400); RBC Distribution Width 12.4 % (11.5-14.5); Red Blood Cell (RBC) Count 4.36 mill/uL (4.20-5.40); White Blood Cell (WBC) Count 7.6 thou/uL (4.8-10.8)
[2019-02-03 05:11] LABS: INR-International Normal Ratio 1.1; Prothrombin Time 14.5 SEC (12.0-14.7)
[2019-02-03 05:27] LABS: ALT (SGPT) 75 U/L (8-55); AST (SGOT) 23 U/L (5-34); Albumin 3.2 g/dL (3.4-4.8); Alkaline Phosphatase 115 U/L (40-150); Anion Gap 10 mmol/L (10-20); BUN (Urea Nitrogen) 5 mg/dL (9.8-20.1); Bilirubin, Total 0.6 mg/dL (0.2-1.2); Calc. Creatinine Clearance 87 mL/min (70-130); Calcium 8.7 mg/dL (7.8-10.44); Carbon Dioxide 27 mmol/L (23-31); Chloride 105 mmol/L (98-107); Estimated GFR-MDRD 79; Globulin 2.7 g/dL (2.4-3.5); Glucose 111 mg/dL (83-110); Magnesium 1.7 mg/dL (1.6-2.6); Potassium 3.3 mmol/L (3.5-5.1); Protein, Total 5.9 g/dL (6.0-8.3); Sodium 139 mmol/L (136-145)
[2019-02-03] MEDS: Potassium Chloride 20 MEQ TAB PO SCH ×2 (08:15→12:43)
[2019-02-03] MEDS ORDERED: Iothalamate Meglumine 60% 50 ML VIAL FS ONE (08:34)
[2019-02-03] MEDS ORDERED: Indomethacin 50 MG SUPP ONE ×2 (08:45→08:46)
[2019-02-03] MEDS: Magnesium Oxide 400 MG TAB PO SCH ×2 (08:51→21:11)
[2019-02-03] MEDS: NIFEdipine XL 30 MG TAB PO SCH ×2 (08:51→21:11)
[2019-02-03] MEDS ORDERED: Potassium Chloride 40 MEQ in Sodium Chloride 0.9% 500 ML IVPB SCH (09:15)
--- NOTE | 2019-02-03 10:05 | RAD ---
EXAM: ERCP HISTORY: Cholelithiasis COMPARISON: MRI abdomen 02/01/2019 FINDINGS: Limited intraoperative fluoroscopic views were taken during a an ERCP. Common bile duct is mildly enlarged. No filling defect is seen on the first or third image. The secon d image shows questionable filling defects which could represent air bubbles. Contrast is seen filling the gallbladder. No leakage from the common bile duct. No abnormality of the intrahepatic bile ducts. IMPRESSION: Questionable filling defects on the second image appear to be cleared on the last image.
[2019-02-03] MEDS ORDERED: Promethazine HCl 25 MG/ML VIAL IM PRN (10:29)
[2019-02-03] MEDS ORDERED: Promethazine HCl 25 MG/ML VIAL SLOW IVP PRN (10:29)
[2019-02-03] MEDS ORDERED: Ondansetron HCl/PF 4 MG/2 ML Vial IVP PRN (10:29)
--- NOTE | 2019-02-03 10:54 | OP ---
DATE OF PROCEDURE: 02/03/2019 PROCEDURE PERFORMED: Endoscopic retrograde cholangiopancreatography with sphincterotomy and stone extraction. INDICATION FOR PROCEDURE: Choledocholithiasis on magnetic resonance cholangiopancreatography. DESCRIPTION OF PROCEDURE: After the risks and benefits of the procedure were explained to the patient including risks of bleeding, infection, perforation, reactions to anesthesia, aspiration, post ERCP pancreatitis and/or pain, informed consent was obtained. The patient was then taken to the endoscopy suite, where general anesthesia was administered via Anesthesia support. Once the patient was intubated and sedated, she was maneuvered into the prone position in anticipation of the ERCP. Once in adequate position, the standard duodenoscope was introduced into the mouth with intubation of the esophagus, stomach, and the proximal small intestines with the findings listed below. The patient tolerated the procedure well with no immediate perioperative complications. Upon conclusion of the procedure, all equipment was removed from the patient and she was transferred to PACU in satisfactory condition. FINDINGS: EGD FINDINGS: Limited views were obtained of the esophagus, stomach, and the proximal small intestines given the side-viewing aspect of the duodenoscope, but of the mucosa visualized, normal-appearing mucosa was seen in the entire esophagus, stomach, and proximal small intestines. There was no evidence of erosions, ulcerations, mass, lesions, or active/recent bleeding. ERCP FINDINGS: The ampulla was easily identified within the second portion of the duodenum with dhaliwal bile seen emanating from it. Using a 5 mm Ultratome, the ampulla was then successfully cannulated with a guidewire then placed within the common bile duct and intrahepatic biliary tree to maintain position. Once adequate position was achieved, a cholangiogram was then performed showing dilation of the common bile duct to approximately 1 cm in diameter; however, there were no filling defects seen during this portion of the exam. Given the presence of the stone on imaging, a sphincterotomy was then performed with good hemostasis achieved throughout the entire maneuver. Once an adequate sphincterotomy was performed, the sphincterotome was exchanged for a 9 to 12 biliary balloon using an exchange technique over guidewire. Once the biliary balloon was in adequate position, it was advanced into the common bile duct and successive balloon sweeps of the common bile duct and common hepatic duct were performed. A 3 mm yellow pigmented stone was seen extruded from the ampulla during one of the successful sweeps. An occlusion cholangiogram was then performed with no additional filling defects seen throughout the entire biliary tree, and good drainage was seen on successive imaging from fluoroscopy. All equipment was then removed from the patient with the procedure terminated at that time. IMPRESSION: Choledocholithiasis with successful extraction of a 3 mm yellow pigmented stone. RECOMMENDATIONS: 1. We would monitor the patient in the postoperative period for any signs of post ERCP pancreatitis. 2. Would continue broad-spectrum antibiotics including Zosyn for at least the next 24 hours. 3. Highly recommend consultation of General Surgery Service for cholecystectomy in the near future (hopefully during this admission). 4. We will place the patient on a full liquid diet today. They can advance as tolerated based on whether or not the patient will go for cholecystectomy. 5. If the patient does not undergo cholecystectomy, would hold any anticoagulation on this patient for approximately 48 hours in the post procedure setting, then restart her warfarin. 6. We would continue to follow. Please call with any questions. Job ID: [id number]
[2019-02-03] MEDS ORDERED: Succinylcholine Chloride 20 MG/ML 10 ml SYRINGE FS ONE (13:26)
[2019-02-03] MEDS ORDERED: Ondansetron PF 4 MG/2 ML Vial ONE (13:26)
[2019-02-03] MEDS ORDERED: Lidocaine 1% PF 5 ML VIAL ONE (13:26)
[2019-02-03] MEDS ORDERED: PROPOFOL 200 MG/20 ML VIAL ONE (13:26)
[2019-02-03] MEDS ORDERED: Dexamethasone 20 MG/5 ML VIAL ONE (13:26)
--- NOTE | 2019-02-03 13:46 | PRG ---
DATE OF SERVICE: 02/03/2019 SUBJECTIVE: The patient underwent ERCP and sphincterotomy with stone extraction today. She feels a little better. OBJECTIVE: ABDOMEN: Soft, nondistended, and nontender. VITAL SIGNS: Her temperature is 97.3, pulse 86, and blood pressure 149/77. GENERAL: She looks good. LABORATORY DATA: Her white count is 7.6, hemoglobin and hematocrit of 12 and 39, platelet count 239. Her LFTs, bilirubin is normal, ALT is 75, otherwise normal. ASSESSMENT: Choledocholithiasis with cholelithiasis, which were small and negative HIDA scan. PLAN: We will discuss with Dr. Perry, leave it up to him and the patient as to whether to go ahead and proceed with shannan lira or wait and let her cool down and bring her back later to do it. Job ID: [id number]
--- NOTE | 2019-02-03 14:12 | PDOC.HOSPP ---
- Subjective Encounter Date: 02/03/19 Encounter Time: 13:10 Subjective: 83 y/o female with Afib on coumadin, aortic stenosis, DM and HTn admitteed with acute abdominal pain associated with nausea, vomiting, fever and abnormal LFT. CT/US showed gall bladder thickening suggestive of cholecystitis but subsequent HIDA was negative for obstruction. Blood culture grew E coli and further eval with MRI is suggestive of choledocolithiasis. Patient later had ERCP on 2018 with extrusioin of 3mm stone. Cholecytectomy planning is in progress. Abdominal pain has subsided. - Objective Vital Signs & Weight: Vital Signs (12 hours) Temp Pulse Resp BP Pulse Ox 02/03/19 11:07 97.3 F L 86 18 149/77 H 99 02/03/19 08:51 83 02/03/19 04:20 97.7 F 83 16 144/85 H 96 Weight Admit Weight 202 lb Weight 202 lb I&O: 02/02/19 02/03/19 02/04/19 06:59 06:59 06:59 Intake Total 1400 1301 Balance 1400 1301 Result Diagrams: 02/03/19 04:27 02/03/19 04:27 Additional Labs: Accuchecks 02/03/19 02/03/19 02/02/19 11:23 05:11 21:39 POC Glucose 118 H 113 H 105 02/02/19 16:03 POC Glucose 91 Hospitalist ROS - Medication Medications: Active Medications Generic Name Dose Route Start Last Admin Trade Name Freq PRN Reason Stop Dose Admin Hydralazine HCl 10 mg 01/29/19 15:08 01/31/19 17:48 Apresoline SLOW IVP 10 mg Q4H PRN Administration SBP > 180 and HR < 70 Piperacillin Sod/Tazobactam 100 mls @ 200 mls/hr 01/29/19 18:00 02/03/19 12: 42 Sod 3.375 gm/ Sodium Chloride IVPB 100 mls Q6HR CECILY Administration Loperamide HCl 2 mg 02/01/19 14:57 02/03/19 12:43 Imodium PO 2 mg PRN PRN Administration Diarrhea/Loose Stools Magnesium Oxide 400 mg 02/02/19 21:00 02/03/19 08:51 Magnesium Oxide PO Not Given BID CECILY Metoprolol Succinate 25 mg 01/31/19 09:00 02/03/19 11:04 Toprol Xl PO 25 mg DAILY CECILY Administration Morphine Sulfate 2 mg 01/29/19 11:37 02/02/19 11:14 Morphine SLOW IVP 2 mg Q4H PRN Administration Moderate Pain (4-6) Nifedipine 30 mg 01/31/19 21:00 02/03/19 08:51 Procardia Xl PO Not Given BID CECILY Ondansetron HCl 4 mg 01/29/19 11:03 01/30/19 23:50 Zofran IVP 4 mg Q6H PRN Administration Nausea/Vomiting Pantoprazole Sodium 40 mg 01/29/19 21:00 02/03/19 08:51 Protonix IVP Not Given Q12HR CECILY - Exam General Appearance: awake alert Eye: anicteric sclera ENT: normocephalic atraumatic Neck: supple, symmetric Heart: irregular Respiratory: no wheezes, no rales, no ronchi, normal chest expansion Gastrointestinal: soft, non-tender, non-distended, normal bowel sounds Extremities: 2+ LE edema Neurological: cranial nerve grossly intact, no focal deficits Psychiatric: A&O x 3 Hosp A/P (1) Choledocholithiasis with acute cholecystitis Code(s): K80.42 - CALCULUS OF BILE DUCT W ACUTE CHOLECYSTITIS W/O OBSTRUCTION Status: Acute (2) Cholelithiasis and cholecystitis without obstruction Code(s): K80.10 - CALCULUS OF GALLBLADDER W CHRONIC CHOLECYST W/O OBSTRUCTION Status: Acute (3) Sepsis Code(s): A41.9 - SEPSIS, UNSPECIFIED ORGANISM Status: Acute Qualifiers: Sepsis type: Escherichia coli (4) E coli bacteremia Code(s): R78.81 - BACTEREMIA Status: Acute (5) Abdominal pain Code(s): R10.9 - UNSPECIFIED ABDOMINAL PAIN Status: Acute (6) Nausea & vomiting Code(s): R11.2 - NAUSEA WITH VOMITING, UNSPECIFIED Status: Acute (7) Atrial fibrillation with controlled ventricular rate Code(s): I48.91 - UNSPECIFIED ATRIAL FIBRILLATION Status: Chronic (8) DM type 2 (diabetes mellitus, type 2) Status: Chronic Qualifiers: Diabetes mellitus chcf insulin use: without chcf use Diabetes mellitus complication status: without complication Qualified Code(s): E11.9 - Type 2 diabetes mellitus without complications (9) HTN (hypertension) Code(s): I10 - ESSENTIAL (PRIMARY) HYPERTENSION Status: Chronic Qualifiers: Hypertension type: essential hypertension Qualified Code(s): I10 - Essential (primary) hypertension (10) Hypokalemia Code(s): E87.6 - HYPOKALEMIA Status: Chronic (11) DAYAN (obstructive sleep apnea) Code(s): G47.33 - OBSTRUCTIVE SLEEP APNEA (ADULT) (PEDIATRIC) Status: Chronic (12) Obesity (BMI 30-39.9) Code(s): E66.9 - OBESITY, UNSPECIFIED Status: Chronic (13) Abnormal LFTs Code(s): R94.5 - ABNORMAL RESULTS OF LIVER FUNCTION STUDIES Status: Acute (14) Aortic stenosis Code(s): I35.0 - NONRHEUMATIC AORTIC (VALVE) STENOSIS Status: Acute (15) Chronic anticoagulation Code(s): Z79.01 - S[employer]IVING (CURRENT) USE OF ANTICOAGULANTS Status: Acute - Plan Continue zosyn Replete serum potassium with IV and PO KCL. Continue to hold coiumadin in view of possible Cholecystectomy and post ERCP Follow CMP and CBC. Diet as per GI/surgery
[2019-02-04] MEDS: Piperacillin/Tazobactam 3.375 GM in Sodium Chloride 0.9% 100 ML IVPB SCH ×4 (00:31→17:00)
[2019-02-04] MEDS ORDERED: Bupivacaine/Epinephrine 0.25% 30 ML VIAL ONE (07:36)
[2019-02-04] MEDS ORDERED: Fentanyl 100 MCG/2 ML VIAL ONE (07:55)
[2019-02-04] MEDS ORDERED: Famotidine/PF 20 mg/2ml Vial ONE (07:55)
[2019-02-04] MEDS ORDERED: Ondansetron HCl/PF 4 MG/2 ML Vial IVP PRN (09:05)
--- NOTE | 2019-02-04 09:38 | OP ---
DATE OF PROCEDURE: 02/04/2019 PREOPERATIVE DIAGNOSES: Cholecystitis, history of choledocholithiasis. POSTOPERATIVE DIAGNOSES: Cholecystitis, history of choledocholithiasis. PROCEDURE PERFORMED: Laparoscopic cholecystectomy. ANESTHESIA: General. ESTIMATED BLOOD LOSS: Minimal. COMPLICATIONS: None. SPECIMENS: Gallbladder. FINDINGS: Chronic cholecystitis. PROCEDURE IN DETAIL: The patient was taken to the operating room and laid supine on the operating room table. After general anesthetic was obtained, the abdomen was prepped and draped in a sterile fashion. A curved incision was made below the umbilicus. Cautery was used to dissect down to the umbilical fascia. Umbilical fascia was incised and held up using a Dominick. The abdominal cavity was entered using a Destinee clamp. Holding stitch of Vicryl was placed on each side of the fascia. Love trocar was placed. High-flow pneumoperitoneum was obtained. An upper midline 5 mm port and 2 right upper quadrant 5 mm ports were placed under direct camera visualization. The gallbladder was retracted from the gallbladder fossa. The peritoneum of the gallbladder was opened anteriorly and posteriorly. The critical view triangle was seen showing only the cystic duct and cystic artery branching from medial to lateral. There were no other branching structures. Two clips were placed proximally on the cystic duct and one laterally. It was cut using laparoscopic scissors. The cystic artery was taken in the same way. Electrocautery was then used to dissect the gallbladder out of the gallbladder fossa. The gallbladder was placed in an Endo catch bag and brought out through the Love. There was no bleeding or bile in the liver bed. The cystic duct stump and cystic artery stump were intact, without evidence of extravasation or bleeding. All port sites were infiltrated using local anesthesia. All ports were removed under camera visualization. Pneumoperitoneum was let down. The Vicryl was used to close the fascial defect below the umbilicus. All incisions were irrigated and closed using 4-0 Monocryl and Dermabond. The patient was en route to Recovery in stable condition. All instrument counts, needle counts and lap counts were correct. Job ID: [id number]
[2019-02-04] MEDS ORDERED: Labetalol HCl 100 MG/20 ML VIAL ONE (09:48)
[2019-02-04] MEDS ORDERED: hydrALAZINE 20 MG/ML VIAL ONE (10:05)
[2019-02-04] MEDS ORDERED: traMADol HCl 50 MG TAB PO PRN ×2 (10:56)
--- NOTE | 2019-02-04 12:11 | EKG ---
Test Reason : Blood Pressure : / mmHG Vent. Rate : 064 BPM Atrial Rate : 089 BPM P-R Int : 000 ms QRS Dur : 136 ms QT Int : 436 ms P-R-T Axes : 000 -47 048 degrees QTc Int : 449 ms Poor data quality, interpretation may be adversely affected Atrial fibrillation Left axis deviation Left ventricular hypertrophy with QRS widening Abnormal ECG Confirmed by LENNIE QUINONEZ D.O. ([id number]), newspaper photo editor NATALI CANTU ([id number]) on 02/04/2019 12:11:16 PM Referred By: Confirmed By:LENNIE QUINONEZ D.O.
[2019-02-04] MEDS: NIFEdipine XL 30 MG TAB PO SCH ×2 (12:25→21:00)
[2019-02-04] MEDS: Pantoprazole 40 MG VIAL IVP SCH ×2 (12:25→21:00)
[2019-02-04] MEDS: Magnesium Oxide 400 MG TAB PO SCH ×2 (12:26→21:00)
[2019-02-04 13:23] LABS: #Lymphocytes 0.8 thou/uL (1.20-3.40); #Monocytes 0.1 thou/uL (0.11-0.59); #Neutrophils 14.4 thou/uL (1.40-6.50); %Basophils 0.1 % (0.0-1.0); %Eosinophils 0.3 % (0.0-10.0); %Monocytes 0.7 % (0.0-10.0); %Neutrophils 93.9 % (42.0-75.0); Hemoglobin 14.8 g/dL (12.0-16.0); Mean Corpuscular HGB CONC 32.8 g/dL (32.0-36.0); Mean Corpuscular Hemoglobin 29.6 pg (27.0-31.0); Mean Corpuscular Volume 90.2 fL (78.0-98.0); Mean Platelet Volume 9.4 fL (7.4-10.4); Platelet Count 263 thou/uL (130-400); RBC Distribution Width 12.9 % (11.5-14.5); Red Blood Cell (RBC) Count 5.01 mill/uL (4.20-5.40); White Blood Cell (WBC) Count 15.3 thou/uL (4.8-10.8)
[2019-02-04 13:46] LABS: ALT (SGPT) 104 U/L (8-55); AST (SGOT) 70 U/L (5-34); Albumin 3.6 g/dL (3.4-4.8); Alkaline Phosphatase 185 U/L (40-150); Anion Gap 17 mmol/L (10-20); BUN (Urea Nitrogen) 4 mg/dL (9.8-20.1); Bilirubin, Total 0.6 mg/dL (0.2-1.2); Calc. Creatinine Clearance 89 mL/min (70-130); Calcium 9.1 mg/dL (7.8-10.44); Carbon Dioxide 23 mmol/L (23-31); Chloride 104 mmol/L (98-107); Estimated GFR-MDRD 81; Globulin 3.3 g/dL (2.4-3.5); Glucose 111 mg/dL (83-110); Magnesium 1.7 mg/dL (1.6-2.6); Potassium 3.5 mmol/L (3.5-5.1); Protein, Total 6.9 g/dL (6.0-8.3); Sodium 140 mmol/L (136-145)
--- NOTE | 2019-02-04 15:49 | PDOC.HOSPP ---
- Subjective Encounter Date: 02/04/19 Encounter Time: 12:46 Subjective: 83 y/o female with Afib on coumadin, aortic stenosis, DM and HTn admitteed with acute abdominal pain associated with nausea, vomiting, fever and abnormal LFT. CT/US showed gall bladder thickening suggestive of cholecystitis but subsequent HIDA was negative for obstruction. Blood culture grew E coli and further eval with MRI is suggestive of choledocolithiasis. Patient later had ERCP on 2018 with extrusioin of 3mm stone. Had Cholecytectomy earlier today. feeling better. - Objective Vital Signs & Weight: Vital Signs (12 hours) Temp Pulse Resp BP BP Pulse Ox 02/04/19 12:25 90 145/81 H 02/04/19 11:00 96 02/04/19 10:29 97.7 F 79 18 152/75 H 96 02/04/19 04:05 95 Weight Admit Weight 202 lb Weight 202 lb I&O: 02/03/19 02/04/19 02/05/19 06:59 06:59 06:59 Intake Total 1301 1558 Balance 1301 1558 Result Diagrams: 02/04/19 13:18 02/04/19 13:18 Additional Labs: Accuchecks 02/04/19 02/04/19 02/03/19 11:04 04:54 20:45 POC Glucose 92 91 109 02/03/19 15:56 POC Glucose 112 H Hospitalist ROS - Medication Medications: Active Medications Generic Name Dose Route Start Last Admin Trade Name Freq PRN Reason Stop Dose Admin Hydralazine HCl 10 mg 01/29/19 15:08 01/31/19 17:48 Apresoline SLOW IVP 10 mg Q4H PRN Administration SBP > 180 and HR < 70 Piperacillin Sod/Tazobactam 100 mls @ 200 mls/hr 01/29/19 18:00 02/04/19 12: 26 Sod 3.375 gm/ Sodium Chloride IVPB 100 mls Q6HR CECILY Administration Loperamide HCl 2 mg 02/01/19 14:57 02/03/19 18:41 Imodium PO 2 mg PRN PRN Administration Diarrhea/Loose Stools Magnesium Oxide 400 mg 02/02/19 21:00 02/04/19 12:26 Magnesium Oxide PO 400 mg BID CECILY Administration Metoprolol Succinate 25 mg 01/31/19 09:00 02/04/19 08:00 Toprol Xl PO 25 mg DAILY CECILY Administration Morphine Sulfate 2 mg 01/29/19 11:37 02/02/19 11:14 Morphine SLOW IVP 2 mg Q4H PRN Administration Moderate Pain (4-6) Nifedipine 30 mg 01/31/19 21:00 02/04/19 12:25 Procardia Xl PO 30 mg BID CECILY Administration Ondansetron HCl 4 mg 01/29/19 11:03 01/30/19 23:50 Zofran IVP 4 mg Q6H PRN Administration Nausea/Vomiting Pantoprazole Sodium 40 mg 01/29/19 21:00 02/04/19 12:25 Protonix IVP 40 mg Q12HR CECILY Administration Sodium Chloride 10 ml 01/29/19 10:55 02/03/19 21:14 Flush - Normal Saline IVF 10 ml PRN PRN Administration Saline Flush - Exam General Appearance: awake alert Eye: anicteric sclera ENT: normocephalic atraumatic Neck: supple, symmetric Heart: irregular Respiratory: no ronchi, normal chest expansion Gastrointestinal: soft, non-distended, normal bowel sounds Gastrointestinal - other findings: mild diffuse tenderness Extremities: no cyanosis Neurological: cranial nerve grossly intact, no focal deficits Psychiatric: A&O x 3 Hosp A/P (1) Choledocholithiasis with acute cholecystitis Code(s): K80.42 - CALCULUS OF BILE DUCT W ACUTE CHOLECYSTITIS W/O OBSTRUCTION Status: Acute (2) Cholelithiasis and cholecystitis without obstruction Code(s): K80.10 - CALCULUS OF GALLBLADDER W CHRONIC CHOLECYST W/O OBSTRUCTION Status: Acute (3) Sepsis Code(s): A41.9 - SEPSIS, UNSPECIFIED ORGANISM Status: Acute Qualifiers: Sepsis type: Escherichia coli (4) E coli bacteremia Code(s): R78.81 - BACTEREMIA Status: Acute (5) Abdominal pain Code(s): R10.9 - UNSPECIFIED ABDOMINAL PAIN Status: Acute (6) Nausea & vomiting Code(s): R11.2 - NAUSEA WITH VOMITING, UNSPECIFIED Status: Acute (7) Atrial fibrillation with controlled ventricular rate Code(s): I48.91 - UNSPECIFIED ATRIAL FIBRILLATION Status: Chronic (8) DM type 2 (diabetes mellitus, type 2) Status: Chronic Qualifiers: Diabetes mellitus half-way insulin use: without half-way use Diabetes mellitus complication status: without complication Qualified Code(s): E11.9 - Type 2 diabetes mellitus without complications (9) HTN (hypertension) Code(s): I10 - ESSENTIAL (PRIMARY) HYPERTENSION Status: Chronic Qualifiers: Hypertension type: essential hypertension Qualified Code(s): I10 - Essential (primary) hypertension (10) Hypokalemia Code(s): E87.6 - HYPOKALEMIA Status: Chronic (11) DAYAN (obstructive sleep apnea) Code(s): G47.33 - OBSTRUCTIVE SLEEP APNEA (ADULT) (PEDIATRIC) Status: Chronic (12) Obesity (BMI 30-39.9) Code(s): E66.9 - OBESITY, UNSPECIFIED Status: Chronic (13) Abnormal LFTs Code(s): R94.5 - ABNORMAL RESULTS OF LIVER FUNCTION STUDIES Status: Acute (14) Aortic stenosis Code(s): I35.0 - NONRHEUMATIC AORTIC (VALVE) STENOSIS Status: Acute (15) Chronic anticoagulation Code(s): Z79.01 - [employer] SALES [employer] (CURRENT) USE OF ANTICOAGULANTS Status: Acute - Plan Continue zosyn Start oral potassium and magnesium supplementation Analgesic and diet as per surgery Follow CMP and CBC. Get INR in the morning. Will restart coumadin in the am if cleared by surgery
[2019-02-04] MEDS ORDERED: Glycopyrrolate 0.2 MG/ML 5 ML SYRINGE ONE (15:51)
[2019-02-04] MEDS ORDERED: Dexamethasone 20 MG/5 ML VIAL ONE (15:51)
[2019-02-04] MEDS ORDERED: Ondansetron PF 4 MG/2 ML Vial ONE (15:51)
[2019-02-04] MEDS ORDERED: Metoclopramide HCl 10 MG/2 ML VIAL ONE (15:51)
[2019-02-04] MEDS ORDERED: Ketorolac Tromethamine 30 MG/ML VIAL ONE (15:51)
[2019-02-04] MEDS ORDERED: Lidocaine 1% PF 5 ML VIAL ONE (15:51)
[2019-02-04] MEDS ORDERED: Rocuronium Bromide 10 MG/ML (10ML VIAL) ONE (15:51)
[2019-02-04] MEDS ORDERED: PROPOFOL 200 MG/20 ML VIAL ONE (15:51)
[2019-02-04] MEDS ORDERED: Metoprolol Tartrate 5 MG/5 ML VIAL ONE (15:51)
[2019-02-04] MEDS: HumaLOG 300 UNITS/3 ML VIAL SC PRN (16:57)
[2019-02-04] MEDS: Potassium Chloride 20 MEQ TAB PO SCH (16:57)
--- NOTE | 2019-02-04 20:17 | PRG ---
DATE OF SERVICE: 02/04/2019 REASON FOR CONSULTATION: Choledocholithiasis on imaging. SUBJECTIVE: The patient this morning was feeling well with no further complaints of abdominal pain. She denies any other symptoms consistent with post-ERCP pancreatitis as well. She was ultimately taken to the OR today with cholecystectomy performed. At the time of this evaluation, she was resting comfortably in her room in the postprocedure. Currently, she denies any nausea, vomiting, fevers, chills, or abdominal pain. OBJECTIVE: VITAL SIGNS: Temperature 97.7, pulse 90, blood pressure 145/81, respiratory rate 18, saturating 96% on 3 L nasal cannula. GENERAL: The patient was sitting at bedside, in no acute distress. Alert and oriented x4. CARDIOVASCULAR: Regular rate and rhythm with no discernible murmurs, gallops, or rubs. RESPIRATORY: Clear to auscultation bilaterally. ABDOMEN: Normoactive bowel sounds. Soft, nondistended, mild tenderness to palpation of trocar sites. EXTREMITIES: No cyanosis, clubbing, or edema. LABORATORY DATA: No current studies were available for review. IMAGING DATA: ERCP was performed on February 03, 2019, which showed a dilated common bile duct to approximately 1 cm in diameter with the successful extraction of a 3 mm yellow-pigmented stone via sphincterotomy and balloon extraction. ASSESSMENT AND PLAN: The patient is an 83-year-old female with past medical history of atrial fibrillation, aortic stenosis, diabetes, and hypertension, presenting with choledocholithiasis. 1. Choledocholithiasis. 2. The patient initially presented with acute abdominal pain, nausea, vomiting, fever, and elevated LFTs; however, imaging was not suggestive initially of choledocholithiasis. She subsequently underwent magnetic resonance cholangiopancreatography, which was indicative of a filling defect within the distal common bile duct consistent with choledocholithiasis. She subsequently underwent magnetic resonance cholangiopancreatography on February 11, 2019, with extraction of 3 mm yellow-pigmented stone in the postoperative. It does not appear that she has developed post-magnetic resonance cholangiopancreatography pancreatitis and was subsequently taken for laparoscopic cholecystectomy earlier today. At this time, she is doing well with no immediate postoperative complications. RECOMMENDATIONS: 1. Would continue to trend her LFTs for normalization. 2. Pain control per Primary Team. 3. We will sign off at this time. Please call with any additional questions. Job ID: [id number]
[2019-02-05] MEDS: Piperacillin/Tazobactam 3.375 GM in Sodium Chloride 0.9% 100 ML IVPB SCH ×3 (00:45→11:49)
[2019-02-05 06:12] LABS: INR-International Normal Ratio 1.1; Prothrombin Time 14.2 SEC (12.0-14.7)
[2019-02-05 06:30] LABS: ALT (SGPT) 70 U/L (8-55); AST (SGOT) 39 U/L (5-34); Alkaline Phosphatase 135 U/L (40-150); Anion Gap 10 mmol/L (10-20); BUN (Urea Nitrogen) 8 mg/dL (9.8-20.1); Bilirubin, Total 0.5 mg/dL (0.2-1.2); Calc. Creatinine Clearance 74 mL/min (70-130); Calcium 8.5 mg/dL (7.8-10.44); Carbon Dioxide 30 mmol/L (23-31); Chloride 103 mmol/L (98-107); Estimated GFR-MDRD 66; Globulin 2.9 g/dL (2.4-3.5); Glucose 126 mg/dL (83-110); Potassium 3.5 mmol/L (3.5-5.1); Protein, Total 5.9 g/dL (6.0-8.3); Sodium 139 mmol/L (136-145)
[2019-02-05] MEDS: Potassium Chloride 20 MEQ TAB PO SCH ×2 (09:16→17:35)
[2019-02-05] MEDS: NIFEdipine XL 30 MG TAB PO SCH ×2 (09:17→20:24)
[2019-02-05] MEDS: Acetaminophen 325 MG TAB PO PRN ×2 (09:17→20:24)
[2019-02-05] MEDS: Magnesium Oxide 400 MG TAB PO SCH ×2 (09:17→20:24)
[2019-02-05] MEDS: Pantoprazole 40 MG VIAL IVP SCH (09:18)
--- NOTE | 2019-02-05 09:49 | PRG ---
DATE OF SERVICE: 02/05/2019 SUBJECTIVE: Ms. Garcia is postop day #1 laparoscopic cholecystectomy. She feels she is sore, but no significant complaints. She has been ambulatory. She tolerated regular dinner last night. OBJECTIVE: VITAL SIGNS: She is afebrile. Vital signs are stable. Her wounds are healing well. Her liver function tests are normalizing. ASSESSMENT: Postoperative day #1 laparoscopic cholecystectomy. PLAN: Likely will be discharged tomorrow. Okay to discharge before I see her on Wednesday. She turned down p.o. pain medicine. She will just take Tylenol at home. She needs to see myself back in the office in 2 weeks. Job ID: [id number]
[2019-02-05 09:56] LABS: #Basophils 0.1 thou/uL (0.0-0.2); #Eosinphils 0.1 thou/uL (0.0-0.7); #Lymphocytes 1.5 thou/uL (1.20-3.40); #Monocytes 0.6 thou/uL (0.11-0.59); #Neutrophils 9.9 thou/uL (1.40-6.50); %Basophils 0.4 % (0.0-1.0); %Eosinophils 0.9 % (0.0-10.0); %Lymphocytes 12.1 % (21.0-51.0); %Monocytes 4.7 % (0.0-10.0); %Neutrophils 81.9 % (42.0-75.0); Hemoglobin 12.7 g/dL (12.0-16.0); Mean Corpuscular HGB CONC 32.6 g/dL (32.0-36.0); Mean Corpuscular Hemoglobin 29.5 pg (27.0-31.0); Mean Corpuscular Volume 90.5 fL (78.0-98.0); Mean Platelet Volume 9.2 fL (7.4-10.4); Platelet Count 278 thou/uL (130-400); RBC Distribution Width 12.8 % (11.5-14.5); White Blood Cell (WBC) Count 12.1 thou/uL (4.8-10.8)
[2019-02-05] MEDS: HumaLOG 300 UNITS/3 ML VIAL SC PRN (11:50)
--- NOTE | 2019-02-05 13:05 | PDOC.HOSPP ---
- Subjective Encounter Date: 02/05/19 Encounter Time: 11:05 Subjective: 83 y/o female with Afib on coumadin, aortic stenosis, DM and HTn admitteed with acute abdominal pain associated with nausea, vomiting, fever and abnormal LFT. CT/US showed gall bladder thickening suggestive of cholecystitis but subsequent HIDA was negative for obstruction. Blood culture grew E coli and further eval with MRI is suggestive of choledocolithiasis. Patient later had ERCP on 2018 with extrusioin of 3mm stone. Had Cholecytectomy on 02/04/2019. Feeling better. - Objective Vital Signs & Weight: Vital Signs (12 hours) Temp Pulse Resp BP BP BP Pulse Ox 02/05/19 09:17 85 125/70 02/05/19 07:37 97.9 F 85 18 125/70 92 L 02/05/19 04:00 98.2 F 81 20 128/79 92 L Weight Admit Weight 202 lb Weight 202 lb I&O: 02/04/19 02/05/19 02/06/19 06:59 06:59 06:59 Intake Total 1558 680 Balance 1558 680 Result Diagrams: 02/05/19 09:40 02/05/19 05:44 Additional Labs: Accuchecks 02/05/19 02/05/19 02/04/19 11:03 05:34 20:40 POC Glucose 167 H 119 H 180 H 02/04/19 15:47 POC Glucose 191 H Hospitalist ROS - Medication Medications: Active Medications Generic Name Dose Route Start Last Admin Trade Name Freq PRN Reason Stop Dose Admin Acetaminophen 650 mg 01/29/19 10:55 02/05/19 09:17 Tylenol PO 650 mg Q4H PRN Administration Headache/Fever/Mild Pain (1-3) Hydralazine HCl 10 mg 01/29/19 15:08 01/31/19 17:48 Apresoline SLOW IVP 10 mg Q4H PRN Administration SBP > 180 and HR < 70 Piperacillin Sod/Tazobactam 100 mls @ 200 mls/hr 01/29/19 18:00 02/05/19 11: 49 Sod 3.375 gm/ Sodium Chloride IVPB 100 mls Q6HR CECILY Administration Insulin Human Lispro 0 units 01/29/19 15:07 02/05/19 11:50 Humalog SC 2 unit .MILD SLIDING SCALE PRN Administration Mild Correctional Scale Loperamide HCl 2 mg 02/01/19 14:57 02/03/19 18:41 Imodium PO 2 mg PRN PRN Administration Diarrhea/Loose Stools Magnesium Oxide 400 mg 02/02/19 21:00 02/05/19 09:17 Magnesium Oxide PO 400 mg BID CECILY Administration Metoprolol Succinate 25 mg 01/31/19 09:00 02/05/19 09:17 Toprol Xl PO 25 mg DAILY CECILY Administration Morphine Sulfate 2 mg 01/29/19 11:37 02/02/19 11:14 Morphine SLOW IVP 2 mg Q4H PRN Administration Moderate Pain (4-6) Nifedipine 30 mg 01/31/19 21:00 02/05/19 09:17 Procardia Xl PO 30 mg BID CECILY Administration Ondansetron HCl 4 mg 01/29/19 11:03 01/30/19 23:50 Zofran IVP 4 mg Q6H PRN Administration Nausea/Vomiting Pantoprazole Sodium 40 mg 01/29/19 21:00 02/05/19 09:18 Protonix IVP 40 mg Q12HR CECILY Administration Potassium Chloride 20 meq 02/04/19 17:00 02/05/19 09:16 K-Dur PO 20 meq BID-WM CECILY Administration Sodium Chloride 10 ml 01/29/19 10:55 02/05/19 09:18 Flush - Normal Saline IVF 10 ml PRN PRN Administration Saline Flush - Exam General Appearance: awake alert Eye: anicteric sclera ENT: normocephalic atraumatic Neck: supple, symmetric Heart: irregular Respiratory: no wheezes, no ronchi, normal chest expansion Gastrointestinal: soft, non-distended, normal bowel sounds, tender to palpation Extremities: no cyanosis, no edema Neurological: cranial nerve grossly intact Psychiatric: A&O x 3 Hosp A/P (1) Choledocholithiasis with acute cholecystitis Code(s): K80.42 - CALCULUS OF BILE DUCT W ACUTE CHOLECYSTITIS W/O OBSTRUCTION Status: Acute (2) Cholelithiasis and cholecystitis without obstruction Code(s): K80.10 - CALCULUS OF GALLBLADDER W CHRONIC CHOLECYST W/O OBSTRUCTION Status: Acute (3) Sepsis Code(s): A41.9 - SEPSIS, UNSPECIFIED ORGANISM Status: Acute Qualifiers: Sepsis type: Escherichia coli (4) E coli bacteremia Code(s): R78.81 - BACTEREMIA Status: Acute (5) Abdominal pain Code(s): R10.9 - UNSPECIFIED ABDOMINAL PAIN Status: Acute (6) Nausea & vomiting Code(s): R11.2 - NAUSEA WITH VOMITING, UNSPECIFIED Status: Acute (7) Atrial fibrillation with controlled ventricular rate Code(s): I48.91 - UNSPECIFIED ATRIAL FIBRILLATION Status: Chronic (8) DM type 2 (diabetes mellitus, type 2) Status: Chronic Qualifiers: Diabetes mellitus keno terminal operator insulin use: without correction use Diabetes mellitus complication status: without complication Qualified Code(s): E11.9 - Type 2 diabetes mellitus without complications (9) HTN (hypertension) Code(s): I10 - ESSENTIAL (PRIMARY) HYPERTENSION Status: Chronic Qualifiers: Hypertension type: essential hypertension Qualified Code(s): I10 - Essential (primary) hypertension (10) Hypokalemia Code(s): E87.6 - HYPOKALEMIA Status: Chronic (11) DAYAN (obstructive sleep apnea) Code(s): G47.33 - OBSTRUCTIVE SLEEP APNEA (ADULT) (PEDIATRIC) Status: Chronic (12) Obesity (BMI 30-39.9) Code(s): E66.9 - OBESITY, UNSPECIFIED Status: Chronic (13) Abnormal LFTs Code(s): R94.5 - ABNORMAL RESULTS OF LIVER FUNCTION STUDIES Status: Acute (14) Aortic stenosis Code(s): I35.0 - NONRHEUMATIC AORTIC (VALVE) STENOSIS Status: Acute (15) Chronic anticoagulation Code(s): Z79.01 - CUSTODIAL (CURRENT) USE OF ANTICOAGULANTS Status: Acute - Plan Start oral augmentin and Dc zosyn Restart coumadin Continue oral potassium and magnesium supplementation Analgesic as needee Follow CMP, INR and CBC. For discharge tomorrow. Patient cannot go home today as spouse is not feeling well.
[2019-02-05] MEDS: Loperamide HCl 2 MG CAP PO PRN ×2 (14:17→23:26)
[2019-02-05] MEDS ORDERED: Warfarin Sodium 5 MG TAB PO SCH (17:00)
[2019-02-05] MEDS: Amoxicillin/Potassium Clav 875 MG TAB PO SCH (20:24)
[2019-02-06] MEDS: Loperamide HCl 2 MG CAP PO PRN ×2 (05:03→08:41)
--- NOTE | 2019-02-06 08:22 | PDOC.GSPN ---
Surgery Progress Note: Subj - Subjective Patient reports: no new complaints, pain well controlled Surgery Progress Note: Obj - Vital signs Vital signs: Vital Signs - Most Recent Temp Pulse Resp BP Pulse Ox 98.4 F 92 18 146/93 H 92 L 02/06/19 04:00 02/06/19 04:00 02/06/19 04:00 02/06/19 04:00 02/06/19 04:00 - Physical Exam General: no distress Cardiovascular: regular rate and rhythm Respiratory: clear to auscultation Abdomen: soft, appropriately tender Wound: healing well Surgery Progress Note: Results - Labs Result Diagrams: 02/05/19 09:40 02/05/19 05:44 Lab results: Laboratory Results - last 24 hr 02/05/19 02/06/19 20:46 05:53 POC Glucose 125 H 103 Surgery Progress Note: A/P - Problem (1) Choledocholithiasis with acute cholecystitis Current Visit: Yes Code(s): K80.42 - CALCULUS OF BILE DUCT W ACUTE CHOLECYSTITIS W/O OBSTRUCTION Status: Acute - Plan Plan: Doing well after lap nydia. MARIAJOSE today, follow up 2 weeks
[2019-02-06] MEDS: Potassium Chloride 20 MEQ TAB PO SCH (08:40)
[2019-02-06] MEDS: Magnesium Oxide 400 MG TAB PO SCH (08:41)
[2019-02-06] MEDS: NIFEdipine XL 30 MG TAB PO SCH (08:42)
[2019-02-06] MEDS: Amoxicillin/Potassium Clav 875 MG TAB PO SCH (08:42)
[2019-02-06] MEDS: Acetaminophen 325 MG TAB PO PRN (08:46)
[2019-02-06] MEDS: HumaLOG 300 UNITS/3 ML VIAL SC PRN (11:13)
--- NOTE | 2019-02-06 12:59 | DIS ---
DATE OF ADMISSION: 01/29/2019 DATE OF DISCHARGE: 02/06/2019 PRIMARY CARE PROVIDER: Dr. Andi Silveira. DISCHARGE DISPOSITION: Discharged to home. FINAL DIAGNOSES: 1. Calculus of bile duct with cholecystitis. 2. Atrial fibrillation. 3. Long-term use of anticoagulants. 4. Hypertension. 5. Abdominal pain. 6. Bacteremia. DISCHARGE MEDICINES: 1. Estradiol 1 mg a day. 2. Lasix 40 mg a day. 3. Hydralazine 10 mg twice a day. 4. Insulin degludec 18 units subcu at bedtime. 5. Losartan 100 mg a day. 6. Nifedipine 30 mg twice a day. 7. Protonix 40 mg a day. 8. Potassium chloride 10 mEq a day. 9. Warfarin 5 mg a day. 10. Lipitor 20 mg at bedtime. 11. Metoprolol 25 mg daily. 12. Augmentin 875, #14, 1 p.o. b.i.d. ALLERGIES: NO KNOWN MEDICAL ALLERGIES. CODE STATUS: Full resuscitation. DIET: Diabetic. PENDING AT THE TIME OF DISCHARGE: Nothing. HOSPITAL COURSE: The patient admitted to the hospital with abdominal pain, found to have acute cholecystitis. She has chronic atrial fibrillation, is on chronic anticoagulation, history of hypertension. She was placed in the hospital. Dr. Denny Tong was consulted. Dr. Wenceslao Perez was consulted. Dr. Gordon Figueroa was consulted. Initial laboratory; white count 13.7, hemoglobin 13.0, platelet count 196,000. INR 2.4. Comprehensive metabolic profile showed elevated AST, ALT, blood sugar 126. The patient was placed on broad-spectrum antibiotics. Cultures grew E coli, pansensitive. The patient underwent laparoscopic cholecystectomy per Dr. Eamon Perry on 02/04/2019, underwent ERCP on 02/03/[address] Bradford. HIDA scan was done on 01/30/2019, was unremarkable. Abdominal MRI done on 02/01/2019 revealed cholelithiasis, choledocholithiasis, bilaterals small pleural effusions. The patient has done well postoperatively. She is being discharged home. She is having no pain at the present time. Abdomen is benign. Cardiorespiratory status reveals only atrial fibrillation. She is afebrile. Vital signs stable. Job ID: [id number]
[2019-02-06 13:22] VITALS: BP 124/80; TEMP 98.9
--- NOTE | 2019-02-08 05:34 | PQF ---
[employer] Campaign Analyst [employer] ISAÍAS Paredes KENISHAVanessa JENN FERNÁNDEZ C [id number] [place] [id number] CLINICAL DOCUMENTATION CLARIFICATION FORM: POST DISCHARGE Addendum to original discharge summary date: ____ Late entry note date: __ DATE: 01/29/19 ATTN: Jenn Chou Please exercise your independent, professional judgment in responding to the clarification form. Clinical indicators are provided on the bottom of this form for your review Can you please further specify if Choledolithiasis is infectious ot not? Please check appropriate box(s): [ x ] Infectious choledolithiasis [ ] Non Infectious choledolithiasis [ ] Other diagnosis please specify [ ] Unable to determine In addition, please specify: Present on Admission (POA): [x ] Yes [ ] No [ ] Unable to determine For continuity of documentation, please document condition throughout progress notes and discharge summary. Thank You. CLINICAL INDICATORS - SIGNS / SYMPTOMS / LABS PN 02/01 Wecneslao Perez p.1- "E coli sepsis secondary to choledocholithiasis" DS 02/06 p.1- "bacteremia" DS 02/06 p.2-""the pt was placed on broad spectrum antibiotics" DS 02/06 p.2- "initial laboratory; initial white count 13.7" RISK FACTORS choledocholithiasis with cholelithiasis- PN 02/03 Denny Tong p.1 acute cholecystitis- PN 02/03 Antonino Leigh p.4 bacteremia- Ds pg.1 02/06 TREATMENTS: IV Fluids- JUL 23 ERCP-02/[address] Sanchez Pagan Kizzy- Op report Dr. Perry Blood culture- Microbiology 01/29 IV antibiotics- JUL 23 (This form is maintained as a part of the permanent medical record) 2014 [employer]. All Rights Reserved [email or web address] [not provided] MTDD
== END 2019-02-06 14:00 | disposition home or self-care (01) | DRG 854 ==
LOC: ERS 04:47 → SURG A 09:30
PROVIDERS: ADMIT Internal Medicine Nephrology; ATTEND Internal Medicine Nephrology
PROC: 0F798ZZ Dilation of Common Bile Duct, Via Natural or Artificial Opening Endoscopic (ICD-10-PCS; 2019-02-03)
PROC: 0FC98ZZ Extirpation of Matter from Common Bile Duct, Via Natural or Artificial Opening Endoscopic (ICD-10-PCS; 2019-02-03)
PROC: 0FT44ZZ Resection of Gallbladder, Percutaneous Endoscopic Approach (ICD-10-PCS; principal; 2019-02-04)
DX: A41.51 Sepsis due to Escherichia coli [E. coli] (principal); K80.46 Calculus of bile duct with acute and chronic cholecystitis without obstruction; I10 Essential (primary) hypertension; E11.9 Type 2 diabetes mellitus without complications; E73.9 Lactose intolerance, unspecified; E87.6 Hypokalemia; K52.9 Noninfective gastroenteritis and colitis, unspecified; E66.01 Morbid (severe) obesity due to excess calories; E78.5 Hyperlipidemia, unspecified; K21.9 Gastro-esophageal reflux disease without esophagitis; I48.2 Chronic atrial fibrillation; G47.33 Obstructive sleep apnea (adult) (pediatric); R94.5 Abnormal results of liver function studies; K43.2 Incisional hernia without obstruction or gangrene; I35.0 Nonrheumatic aortic (valve) stenosis; Z90.710 Acquired absence of both cervix and uterus; Z79.01 Long term (current) use of anticoagulants; Z79.899 Other long term (current) drug therapy; Z68.36 Body mass index [BMI] 36.0-36.9, adult; Z91.018 Allergy to other foods; Z90.49 Acquired absence of other specified parts of digestive tract
CPT/HCPCS: 36415; 36416; 74177; 74183; 74330; 76705; 78226; 80053; 80202; 81001; 81003; 81015; 83690; 83735; 85025; 85610; 85730; 87040; 87077; 87149; 87186; 87324; 87449; 88304; 93005; 96361; 96365; 96367; 96375; A9537; C9113; J0131; J0360; J1100; J1610; J1885; J2001; J2270; J2405; J2543; J2704; J2765; J3010; J3370; J3430; J3480; J3490; J7050; Q9966; S0028

== ENCOUNTER 2019-06-18 09:51 | Inpatient (IN) | payer MEDICARE ==
--- NOTE | 2019-06-18 10:55 | CT ---
EXAM: Brain CT scan Without contrast: HISTORY: Injury from a fall COMPARISON: 08/08/2015 FINDINGS: Left periorbital swelling and hematoma. Stable focal area of thickening of the inner table of the skull in the region of the left frontal bon e. Atrophy and chronic white matter ischemic change. No focal mass or midline shift. No intra or extra-axial hemorrhage. The visualized sinuses and mastoids are clear of acute process. IMPRESSION: No mass or bleed or other significant acute intracranial process.
--- NOTE | 2019-06-18 11:04 | CT ---
CT maxillofacial noncontrast: 06/18/2019 HISTORY: 84-year-old female status post acute facial trauma from fall. FINDINGS: Left malar superficial soft tissue contusion/hematoma. Separate left supraorbital superficial soft tissue contusion. No fracture identified. No intraorbital gas or hematoma. High-grade facet DJD in the cervical spine. Chronically small volume of right maxillary sinus with mild mucosal thickening and chronic osseous mural thickening. IMPRESSION: 1. No acute fracture. 2. Acute, traumatic superficial soft tissue contusion/hematoma at left premaxillary region and left s upraorbital region. 3. Cervical spondylosis. 4. Chronic small volume of right maxillary sinus.
--- NOTE | 2019-06-18 11:06 | RAD ---
RADIOGRAPH RIGHT KNEE 4 VIEWS: DATE: 06/18/2019 HISTORY: 84-year-old female with traumatic right knee pain due to fall. FINDINGS: Resurfacing changes of articular surfaces of distal femur, patella, and tibial plateau. Metallic pros theses cover the resurfaced articular surfaces of distal femur and tibial plateau. No acute fracture. No hardware loosening. No dislocation. Effacement of Hoffa's fat pad. IMPRESSION: 1. Status post total right knee replacement arthroplasty. 2. No acute fracture identified. 3. Osteopenia.
[2019-06-18] MEDS ORDERED: HYDROcodone/Acetaminophen 5/325 mg Tablet ONE ×2 (11:07→16:12)
--- NOTE | 2019-06-18 11:08 | RAD ---
Radiograph left wrist 3 views: DATE: 06/18/2019 Time: 11:56 AM HISTORY: 84-year-old female with acute traumatic wrist pain due to fall. FINDINGS: Comminuted fracture of distal radial metaphysis and epiphysis, including 1.5 mm step-off at radiocarp al joint surface. Slight widening of scapholunate interval. Distal ulna intact. No dislocation. Dorsal angulation of major distal fragments. IMPRESSION: Acute, traumatic, mildly comminuted, displaced, intra-articular distal radial metaphyseal and epiphys eal Colles' fracture.
--- NOTE | 2019-06-18 11:22 | RAD ---
RADIOGRAPH CHEST 1 VIEW: DATE: 06/18/2019 HISTORY: 84-year-old female with acute traumatic chest pain from fall. FINDINGS: There are no airspace densities, pulmonary edema, pneumothorax, or cardiomegaly. The lateral costophr enic angles are sharp. IMPRESSION: No acute cardiopulmonary findings.
[2019-06-18 11:34] LABS: #Basophils 0.1 thou/uL (0.0-0.2); #Eosinphils 0.1 thou/uL (0.0-0.7); #Lymphocytes 1.7 thou/uL (1.20-3.40); #Monocytes 0.3 thou/uL (0.11-0.59); #Neutrophils 9.9 thou/uL (1.40-6.50); %Basophils 0.6 % (0.0-1.0); %Eosinophils 0.7 % (0.0-10.0); %Lymphocytes 13.7 % (21.0-51.0); %Monocytes 2.7 % (0.0-10.0); %Neutrophils 82.4 % (42.0-75.0); Hemoglobin 15.8 g/dL (12.0-16.0); Mean Corpuscular HGB CONC 31.9 g/dL (32.0-36.0); Mean Corpuscular Hemoglobin 28.2 pg (27.0-31.0); Mean Corpuscular Volume 88.2 fL (78.0-98.0); Platelet Count 253 thou/uL (130-400); RBC Distribution Width 12.8 % (11.5-14.5); Red Blood Cell (RBC) Count 5.62 mill/uL (4.20-5.40)
[2019-06-18 11:43] LABS: INR-International Normal Ratio 1.5; PTT 36.5 SEC (22.9-36.1)
[2019-06-18 12:00] LABS: ALT (SGPT) 19 U/L (8-55); AST (SGOT) 26 U/L (5-34); Albumin 4.2 g/dL (3.4-4.8); Alkaline Phosphatase 126 U/L (40-110); Anion Gap 13 mmol/L (10-20); BUN (Urea Nitrogen) 17 mg/dL (9.8-20.1); Bilirubin, Total 0.5 mg/dL (0.2-1.2); Calc. Creatinine Clearance 0 mL/min (70-130); Calcium 9.4 mg/dL (7.8-10.44); Carbon Dioxide 27 mmol/L (23-31); Chloride 104 mmol/L (98-107); Estimated GFR-MDRD 57; Globulin 3.4 g/dL (2.4-3.5); Glucose 135 mg/dL (83-110); Potassium 3.4 mmol/L (3.5-5.1); Protein, Total 7.6 g/dL (6.0-8.3); Sodium 141 mmol/L (136-145)
[2019-06-18] MEDS ORDERED: Bacitracin 1 PK ONE (13:13)
[2019-06-18 13:44] LABS: Bilirubin Negative (Negative); Blood, Urine Trace (Negative); Clarity Clear (Clear); Glucose, Urine (Dipstick) Normal (Negative); Leukocyte Negative Leu/uL (Negative); Nitrite Negative (Negative); Protein, Urine (Dipstick) 70 mg/dL (Neg-Trace); RBC/HPF 0-3 HPF (0-3); Squamous Epithelial 0-3 HPF (0-3); Urobilinogen Normal mg/dL (Less than 2); WBC/HPF 0-3 HPF (0-3)
[2019-06-18 13:47] LABS: Bacteria/HPF 1+ HPF (None Seen)
--- NOTE | 2019-06-18 15:46 | HP ---
REQUESTING PHYSICIAN: Guerrero Hector DO ATTENDING SURGEON: Tima Herr DO CONSULTATION: Orthopedics, Dr. Argueta. HISTORY OF PRESENT ILLNESS: The patient is an 84-year-old woman who was stepping up onto a sidewalk when she missed a step and landed on her left outstretched hand and hit the left side of her face. She was brought to the emergency department by [facility], where she underwent evaluation and examination and was noted to have a left distal radius fracture and possible concussion complicated by her Coumadin use. The patient at the time of EMS arrival and throughout her stay has been a GCS of 15. Due to the patient's INR of 1.5, Orthopedics asked to make her n.p.o. after midnight in preparation for surgery tomorrow. ALLERGIES: FOOD ALLERGIES ONLY. THE PATIENT DOES NOT LIST ANY DRUG ALLERGIES. CURRENT MEDICATIONS: 1. Calcium. 2. Atorvastatin. 3. Protonix. 4. Lasix. 5. Hydralazine. 6. Potassium. 7. Warfarin. 8. Nifedipine. 9. Metoprolol. 10. Losartan. PAST MEDICAL HISTORY: Type 2 diabetes; hypertension; atrial fibrillation with chronic anticoagulation, on Coumadin; and lactose intolerance. PAST SURGICAL HISTORY: Left knee replacement, hysterectomy, colon surgery x3. The patient had colon "rupture" and then colostomy and colostomy reversal. SOCIAL HISTORY: The patient lives at home with her . She denies drug, tobacco, or alcohol use. REVIEW OF SYSTEMS: A 10-point review of systems is negative as otherwise stated. PHYSICAL EXAMINATION: VITAL SIGNS: Blood pressure 168/86, heart rate 83, respirations 18, oxygen saturation 97% on room air, and temperature is 97.6. GENERAL: The patient is resting comfortably in bed. She is awake, alert, and oriented x3. Kindred Coma Scale is 15. HEENT: Head is normocephalic and atraumatic. Face shows periorbital ecchymosis to the left eye and lateral border with small abrasion. Eyes, extraocular motion intact. PERRLA bilaterally. Nose is atraumatic without discharge. Oropharynx is clear. NECK: Nontender. Trachea is midline. No JVD. CHEST: Clear to auscultation with good inspiratory and expiratory effort. HEART: Irregularly irregular consistent with her atrial fibrillation. ABDOMEN: Soft, flat, and nontender with active bowel sounds. EXTREMITIES: Left upper extremity has been immobilized in a splint. Her extremities are neurovascularly intact x4. The patient has a small abrasion and contusion noted to the lateral aspect of her right knee. BACK: Atraumatic and nontender. RADIOGRAPHIC FINDINGS: CT of the brain without contrast shows no mass or bleed or other significant acute intracranial process. CT of the facial bones without contrast shows no acute fracture. There is noted to be soft tissue contusion in the left premacular region and left supraorbital region. Remainder of the exam is unremarkable for acute findings. AP chest x-ray shows no acute cardiopulmonary findings. Views of the left wrist show an acute traumatic mildly comminuted displaced intra-articular distal radial metaphyseal and epiphyseal Colles fracture. Views of the right knee showed no acute fracture identified. LABORATORY FINDINGS: White blood cell count 12.0, hemoglobin 15.8, hematocrit 49.6, and platelets 253. Sodium 141, potassium 3.4, chloride 104, CO2 of 27, BUN 17, creatinine 0.93, and glucose 135. LFTs are unremarkable with the exception of alkaline phosphatase is 126. PT 18, INR 1.5, and PTT 37. Urinalysis shows trace blood, trace protein, 1+ bacteria and negative leukocyte esterase and negative nitrite. ASSESSMENT: 1. Status post ground level fall. 2. Concussion: On Coumadin. 3. Left distal radius fracture. 4. Multiple contusions. 5. History of atrial fibrillation, on Coumadin, history of diabetes and hypertension. PLAN: Plan will be to admit the patient to the surgical floor. She will be given one dose of vitamin K. We will hold her Coumadin. Repeat her labs in the morning. We will also repeat her brain CT if she shows a change in her neuro status. The patient will have q.4 hour neuro checks per the trauma guidelines. The patient will be made n.p.o. after midnight and plan is for ORIF of the distal radius tomorrow. The evaluation, examination, laboratory, and radiographic findings were discussed with the trauma surgeon after this dictation. The patient was examined by Dr. Argueta in the emergency department. Job ID: [id number] [facility]
[2019-06-18] MEDS ORDERED: Ondansetron ODT 4 MG TAB PO PRN (18:01)
[2019-06-18] MEDS ORDERED: Ondansetron PF 4 MG/2 ML Vial IVP PRN (18:01)
[2019-06-18] MEDS ORDERED: Dextrose 50% Abboject 50 ML SYRINGE SLOW IVP PRN (18:01)
[2019-06-18] MEDS ORDERED: Dextrose 5% in Water 1,000 ML IV PRN (18:01)
[2019-06-18 18:29] VITALS: BMI 36.6
[2019-06-18] MEDS ORDERED: Phytonadione 10 MG/ML AMP PO SCH (18:30)
[2019-06-18] MEDS: Cyclobenzaprine 10 MG TAB PO PRN (18:46)
[2019-06-18] MEDS: traMADol HCl 50 MG TAB PO PRN (18:46)
[2019-06-18] MEDS: Sodium Chloride 0.9% 1,000 ML IV SCH ×2 (18:53→23:28)
--- NOTE | 2019-06-18 21:16 | CON ---
DATE OF CONSULTATION: 06/18/2019 REQUESTING PHYSICIAN: Guerrero Hector DO. BRIEF HISTORY OF PRESENT ILLNESS: The patient is an 84-year-old lady, who was stepping up a step when she missed a step and fell on her outstretched left hand as well as striking the left side of her face. She was brought to the emergency department. On evaluation, she was found to have a large periorbital hematoma of the left eye as well as deformity of the left wrist. X-rays were obtained that showed a displaced and dorsally angulated left distal radius fracture. Of note, the patient does take Coumadin. As such, the patient now admitted to the Trauma Service with plans to proceed for open reduction and internal fixation tomorrow assuming that we can normalize her INR. PAST MEDICAL HISTORY: Remarkable for chronic atrial fibrillation, hypertension, and type 2 diabetes. PAST SURGICAL HISTORY: Includes left knee replacement with Dr. Celeste within the last 2 years as well as history of hysterectomy, colon surgery x2, for which, she reports chronic soft stools. This was secondary to a colon "rupture." MEDICATIONS: Include, 1. Coumadin. 2. Metoprolol. 3. Nifedipine. 4. Lasix. 5. Protonix. 6. Atorvastatin. 7. Losartan. 8. Potassium replacement. ALLERGIES: NO KNOWN DRUG ALLERGIES. SOCIAL HISTORY: The patient lives with her . She denies tobacco, alcohol, or drug use. FAMILY HISTORY: Noncontributory for her wrist fracture. REVIEW OF SYSTEMS: Remarkable for no recent fevers, chills, or sweats. She denies chest pain or shortness of breath. She denies numbness or tingling in this left upper extremity. PHYSICAL EXAMINATION: VITAL SIGNS: Temperature of 97.6, heart rate of 83, respiratory rate of 18, and blood pressure 168/86. HEENT: The patient is found to have a large left periorbital hematoma with a small abrasion. HEART: Shows an irregularly irregular rate; however, I do not appreciate any murmurs. LUNGS: Clear to auscultation bilaterally with good breath sounds. Chest wall is nontender. ABDOMEN: Soft with normal bowel sounds. PELVIS: Stable to compression. EXTREMITIES: Remarkable for a left upper extremity with a splint in place. She is atraumatic at the shoulder and elbow. She reports pain to palpation dorsally at the wrist. She has intact sensation in the radial, median, and ulnar distributions. She has good capillary refill. LABORATORY DATA: She was found to have a white count of 12, hematocrit of 49.6, and 253,000 platelets. She has an INR of 1.5. IMAGING STUDIES: Two-view x-ray of the left wrist shows a comminuted displaced intra-articular distal radius fracture beginning at the metaphysis extending up into the articular surface with significant dorsal angulation. ASSESSMENT: An 84-year-old lady, status post ground level fall sustaining contusion to face as well as left distal radius fracture. PLAN: Given the patient is on Coumadin, at this time, we will delay surgery to allow for normalization of her INR. She has been placed in a splint. She will be admitted to the Trauma Service overnight with plans to proceed to the operating room tomorrow afternoon for open reduction and internal fixation for this displaced fracture. Today, I did discuss with the patient and her risks and benefits of surgery. Risks include, but are not limited to bleeding, infection, nerve injury, DVT, PE, malunion, nonunion, loss of limb or life. The patient appears to understand and does wish to proceed. Written consent will be obtained prior to surgery. Job ID: [id number]
[2019-06-18] MEDS: Ibuprofen 200 MG TAB PO SCH (21:39)
[2019-06-18] MEDS: Acetaminophen 325 MG TAB PO SCH (23:27)
[2019-06-19] MEDS: traMADol HCl 50 MG TAB PO PRN ×2 (00:06→07:06)
[2019-06-19] MEDS ORDERED: Insulin Regular 300 UNITS/3 ML VIAL SC PRN ×2 (00:34)
[2019-06-19] MEDS: Acetaminophen 325 MG TAB PO SCH ×3 (05:46→18:15)
[2019-06-19] MEDS: Ibuprofen 200 MG TAB PO SCH ×3 (05:46→21:15)
[2019-06-19 06:00] LABS: #Eosinphils 0.1 thou/uL (0.0-0.7); #Lymphocytes 2.1 thou/uL (1.20-3.40); #Monocytes 0.5 thou/uL (0.11-0.59); #Neutrophils 5.8 thou/uL (1.40-6.50); %Basophils 0.4 % (0.0-1.0); %Eosinophils 0.9 % (0.0-10.0); %Lymphocytes 24.4 % (21.0-51.0); %Monocytes 5.9 % (0.0-10.0); %Neutrophils 68.4 % (42.0-75.0); Hemoglobin 13.3 g/dL (12.0-16.0); Mean Corpuscular HGB CONC 30.8 g/dL (32.0-36.0); Mean Corpuscular Hemoglobin 27.2 pg (27.0-31.0); Mean Corpuscular Volume 88.2 fL (78.0-98.0); Mean Platelet Volume 10.3 fL (7.4-10.4); Platelet Count 226 thou/uL (130-400); RBC Distribution Width 12.5 % (11.5-14.5); Red Blood Cell (RBC) Count 4.89 mill/uL (4.20-5.40); White Blood Cell (WBC) Count 8.5 thou/uL (4.8-10.8)
[2019-06-19 06:07] LABS: INR-International Normal Ratio 1.7; PTT 38.7 SEC (22.9-36.1); Prothrombin Time 20.1 SEC (12.0-14.7)
[2019-06-19 06:27] LABS: Anion Gap 14 mmol/L (10-20); BUN (Urea Nitrogen) 15 mg/dL (9.8-20.1); Calc. Creatinine Clearance 79 mL/min (70-130); Calcium 8.4 mg/dL (7.8-10.44); Carbon Dioxide 26 mmol/L (23-31); Chloride 106 mmol/L (98-107); Estimated GFR-MDRD 73; Glucose 92 mg/dL (83-110); Magnesium 1.7 mg/dL (1.6-2.6); Phosphorus 2.7 mg/dL (2.3-4.7); Sodium 143 mmol/L (136-145)
[2019-06-19] MEDS: NIFEdipine XL 30 MG TAB PO SCH ×2 (08:28→21:15)
[2019-06-19] MEDS: hydrALAZINE 10 MG TAB PO SCH ×2 (08:29→21:16)
[2019-06-19] MEDS: Losartan 25 MG TAB PO SCH (08:29)
[2019-06-19] MEDS: Sodium Chloride 0.9% 1,000 ML IV SCH (08:36)
[2019-06-19] MEDS ORDERED: Ondansetron PF 4 MG/2 ML Vial ONE (08:55)
[2019-06-19] MEDS ORDERED: Lidocaine 1% PF 5 ML VIAL ONE (08:55)
[2019-06-19] MEDS ORDERED: PROPOFOL 200 MG/20 ML VIAL ONE (08:55)
[2019-06-19] MEDS ORDERED: Esmolol 100 MG/10 ML VIAL ONE (08:55)
[2019-06-19] MEDS ORDERED: Glycopyrrolate 0.2 MG/ML 5 ML SYRINGE ONE (08:55)
[2019-06-19] MEDS ORDERED: Dexamethasone 20 MG/5 ML VIAL ONE (08:55)
[2019-06-19] MEDS ORDERED: Bupivacaine HCl 0.5%/Epinephrine 1:200,000/PF 30 ml Vial ONE (08:55)
[2019-06-19] MEDS ORDERED: Rocuronium Bromide 10 MG/ML (10ML VIAL) ONE (08:55)
[2019-06-19] MEDS ORDERED: BACILLUS COAGULANS PO SCH (09:00)
[2019-06-19] MEDS ORDERED: Magnesium Sulfate 2 GM, Potassium Phosphate 30 MMOL in Sodium Chloride 0.9% 250 ML 250 ML IVPB ONE (09:00)
[2019-06-19] MEDS ORDERED: Fentanyl 100 MCG/2 ML VIAL ONE ×3 (12:25→14:16)
[2019-06-19] MEDS ORDERED: CEFAZOLIN 2 GM in Premix Bag 1 BAG IVPB SCH (13:00)
[2019-06-19] MEDS ORDERED: Ondansetron HCl/PF 4 MG/2 ML Vial IVP PRN (14:12)
[2019-06-19] MEDS ORDERED: Labetalol HCl 100 MG/20 ML VIAL SLOW IVP SCH (14:15)
[2019-06-19] MEDS ORDERED: Labetalol HCl 100 MG/20 ML VIAL ONE (14:46)
[2019-06-19] MEDS: Furosemide 40 MG TAB PO SCH (16:05)
[2019-06-19] MEDS: Estradiol 1 MG TAB PO SCH (16:05)
--- NOTE | 2019-06-19 16:48 | OP ---
DATE OF PROCEDURE: 06/19/2019 PROCEDURES PERFORMED: Open reduction and internal fixation of left distal radial fracture. PREOPERATIVE DIAGNOSIS: Intra-articular displaced left distal radial fracture. POSTOPERATIVE DIAGNOSIS: Intra-articular displaced left distal radial fracture. COMPLICATIONS: None. ESTIMATED BLOOD LOSS: Minimal. FAMILY COURT COUNSELLOR: Cece Gaming PA-C INDICATIONS: Ms. Garcia is an 84-year-old female, who fell. She fractured her left distal radius. She has been indicated for open reduction and internal fixation of the distal radius to restore anatomic alignment and promote healing. Risks have been reviewed in detail. She elected to proceed with the operation. DESCRIPTION OF PROCEDURE: Ms. Garcia was identified in the preoperative holding area. Her correct extremity was marked. She was carried to the operating room. She was positioned supine. General anesthesia was induced. A multidisciplinary time-out was performed. The left upper extremity was prepped and draped in sterile fashion. We began the procedure with a volar approach to the distal radius. We performed an FCR approach, isolating the FCR tendon and opening the tendon sheath. We explored more deeply down to the bony level. We cleared the pronator quadratus from the bone. At this point, we used a [place] elevator to reduce our distal radial fracture back into its anatomic position. Once this was accomplished, we held this temporarily with a K-wire. We then placed our volar distal radial plate. We placed multiple screws proximally and distally. We took x-ray images confirming hardware placement and fracture reduction was appropriate. We filled all remaining screw holes. At this point, we took final x-ray images. We thoroughly irrigated with copious lavage. We finally closed with 2-0 Vicryl suture followed by layered skin closure. A sterile dressing and a splint was placed. The patient was taken to the recovery room at this point in good condition. Job ID: [id number]
--- NOTE | 2019-06-19 17:51 | PRG ---
DATE OF SERVICE: 06/19/2019 SUBJECTIVE: The patient was seen this afternoon, just returning from the OR. The patient was up in the restroom, ambulating with a nurse without any difficulty. The patient's pain is currently well controlled. The patient did have some pain control issues in the PACU. The patient was given one bolus of block to her left upper extremity. OBJECTIVE: VITAL SIGNS: Temperature 97.4, pulse 72, respirations 16, SpO2 of 95% on room air, blood pressure 167/92. GENERAL: Elderly female, awake, alert, in no distress, ambulating back to the bed from the restroom. RESPIRATORY: Good inspiratory and expiratory effort, no respiratory distress. EXTREMITIES: Left upper extremity in a clean, dry, intact splint. Neurovascularly intact in all four extremities. NEUROLOGIC: GCS 15. LABORATORY DATA: WBC 8.5, RBC 4.87, hemoglobin 13.3, hematocrit 43.1. PT 20.1 , INR 1.7, APTT 38.7. Sodium 143, potassium 3.0, chloride 106, BUN 15, creatinine 0.76, estimated GFR 73, glucose 92, calcium 8.4, phosphorus 2.7, magnesium 1.9. IMPRESSION: 1. Status post ground level fall. 2. Concussion on Coumadin. 3. Left distal radius fracture, postoperative day 0, open reduction and internal fixation of left distal radius fracture. 4. Multiple contusions. 5. Hypokalemia. 6. History of atrial fibrillation, on Coumadin; history of diabetes and hypertension. PLAN: Continue supportive care. Continue pain regimen and diabetic diet as tolerated. We will stop the patient's IV fluids once the patient is tolerating p.o. We will correct electrolytes. We will repeat labs in the morning. A rehab screen has been placed as the patient may need additional inpatient rehab. PT and OT to evaluate and treat this evening. The plan was discussed with the patient, who agrees. Job ID: [id number] [facility]
[2019-06-19] MEDS ORDERED: CALCIUM CARB PO SCH (21:00)
[2019-06-19] MEDS ORDERED: Atorvastatin Calcium 20 MG TAB PO SCH (21:00)
[2019-06-19] MEDS ORDERED: PSYLLIUM HUSK PO SCH (21:00)
[2019-06-19] MEDS: CEFAZOLIN 2 GM in Premix Bag 1 BAG IVPB SCH (21:05)
[2019-06-20] MEDS: Acetaminophen 325 MG TAB PO SCH ×3 (00:17→11:52)
--- NOTE | 2019-06-20 01:39 | PRG ---
DATE OF SERVICE: 06/20/2019 SUBJECTIVE: The patient is currently on the surgical floor. She is status post ground level fall, in which she sustained left-sided forehead periorbital ecchymosis, contusion, and a left distal radius fracture. She is postop from that today when she underwent open reduction and internal fixation. The patient's stay has been complicated by her Coumadin use. She received vitamin K last night and decision was made this morning to undergo her above procedure. She reportedly tolerated this procedure well. She is tolerating a diet. Her pain is controlled. The day team has also initiated a rehab screen for her. OBJECTIVE: VITAL SIGNS: Stable. The patient is afebrile. GENERAL: The patient is resting comfortably in bed. She is asleep at the time of my visit, but did awaken with general verbal stimuli. LUNGS: Clear bilaterally. HEART: Irregularly irregular consistent with her atrial fibrillation, but regular rate. ABDOMEN: Soft, nontender with active bowel sounds. EXTREMITIES: Neurovascularly intact x4. Her left upper extremity is immobilized in a clean, dry, and intact splint. ASSESSMENT: 1. Status post ground level fall. 2. Concussion on Coumadin. 3. Status post open reduction and internal fixation of left distal radius fracture. 4. Hypokalemia, replaced this morning. 5. History of atrial fibrillation on Coumadin and history of diabetes and hypertension. PLAN: Plan will be to continue supportive care, pain control, pulmonary toilet, and likely resume her Coumadin and await placement decision. Job ID: [id number]
[2019-06-20] MEDS: Cyclobenzaprine 10 MG TAB PO PRN (03:21)
[2019-06-20] MEDS: CEFAZOLIN 2 GM in Premix Bag 1 BAG IVPB SCH (05:10)
[2019-06-20] MEDS: Ibuprofen 200 MG TAB PO SCH ×2 (05:11→13:49)
[2019-06-20 05:45] LABS: Band 5 % (5-11); Hemoglobin 13.5 g/dL (12.0-16.0); Lymphocytes 13 % (21-51); MDiff Complete? YES; Mean Corpuscular HGB CONC 31.2 g/dL (32.0-36.0); Mean Corpuscular Hemoglobin 27.8 pg (27.0-31.0); Mean Platelet Volume 10.2 fL (7.4-10.4); Monocytes 1 % (0-10); Neutrophil 81 % (42-75); Platelet Count 237 thou/uL (130-400); RBC Distribution Width 12.5 % (11.5-14.5); Red Blood Cell (RBC) Count 4.87 mill/uL (4.20-5.40); White Blood Cell (WBC) Count 10.9 thou/uL (4.8-10.8)
[2019-06-20 05:46] LABS: Anion Gap 13 mmol/L (10-20); BUN (Urea Nitrogen) 15 mg/dL (9.8-20.1); Calc. Creatinine Clearance 77 mL/min (70-130); Calcium 8.2 mg/dL (7.8-10.44); Carbon Dioxide 25 mmol/L (23-31); Chloride 104 mmol/L (98-107); Estimated GFR-MDRD 70; Glucose 154 mg/dL (83-110); Magnesium 2.1 mg/dL (1.6-2.6); Phosphorus 3.8 mg/dL (2.3-4.7); Potassium 3.6 mmol/L (3.5-5.1); Sodium 138 mmol/L (136-145)
[2019-06-20] MEDS: Estradiol 1 MG TAB PO SCH (09:19)
[2019-06-20] MEDS: hydrALAZINE 10 MG TAB PO SCH (09:20)
[2019-06-20] MEDS: Furosemide 40 MG TAB PO SCH (09:20)
[2019-06-20] MEDS: Losartan 25 MG TAB PO SCH (09:20)
[2019-06-20] MEDS: NIFEdipine XL 30 MG TAB PO SCH (09:21)
[2019-06-20] MEDS: traMADol HCl 50 MG TAB PO PRN (10:03)
[2019-06-20 11:33] VITALS: BP 139/78; TEMP 97.5
--- NOTE | 2019-06-20 16:24 | RAD ---
INTRAOPERATIVE FLUOROSCOPY: 06/20/19 EXPOSURE: 27 seconds. 1 mGy. FINDINGS: Internal fixation plate traversing the distal radius is noted. Expected postoperative changes. IMPRESSION: Intraoperative fluoroscopy as above. POS: [facility]
[2019-06-20] MEDS ORDERED: Enoxaparin Sodium 40 MG/0.4 ML SYRINGE SC SCH (21:00)
== END 2019-06-20 14:43 | disposition home or self-care (01) | DRG 511 ==
LOC: ERS 09:51 → SURG B 18:01
PROVIDERS: ADMIT Surgery; ATTEND Surgery
PROC: 0PSJ04Z Reposition Left Radius with Internal Fixation Device, Open Approach (ICD-10-PCS; principal; 2019-06-19)
DX: S52.572A Other intraarticular fracture of lower end of left radius, initial encounter for closed fracture (principal); I48.20 Chronic atrial fibrillation, unspecified; E11.9 Type 2 diabetes mellitus without complications; I10 Essential (primary) hypertension; Z96.652 Presence of left artificial knee joint; S06.0X0A Concussion without loss of consciousness, initial encounter; R40.2362 Coma scale, best motor response, obeys commands, at arrival to emergency department; R40.2142 Coma scale, eyes open, spontaneous, at arrival to emergency department; I48.91 Unspecified atrial fibrillation; R40.2252 Coma scale, best verbal response, oriented, at arrival to emergency department; S00.83XA Contusion of other part of head, initial encounter; E87.6 Hypokalemia; W01.0XXA Fall on same level from slipping, tripping and stumbling without subsequent striking against object, initial encounter; Y93.89 Activity, other specified; Y92.89 Other specified places as the place of occurrence of the external cause; Z93.3 Colostomy status; Z79.01 Long term (current) use of anticoagulants; Z90.710 Acquired absence of both cervix and uterus
CPT/HCPCS: 29125; 36415; 36416; 70450; 70486; 71045; 76000; 80048; 80053; 81003; 81015; 83735; 84100; 85007; 85025; 85027; 85610; 85730; C1713; G0390; J0670; J0690; J1100; J1815; J2001; J2405; J2704; J3010; J3430; J3475; J7050

== ENCOUNTER 2020-01-08 15:29 | Emergency (ER) | payer MEDICARE ==
--- NOTE | 2020-01-08 16:16 | CT ---
Exam: Facial bone CT COMPARISON: 07/08/2019 HISTORY: Pain. Fall. Abrasion. FINDINGS: Brain parenchyma: No posttraumatic change Orbits: Bilateral ocular lens implants are appropriately located. Both globes are intact. Retrobulbar bar fat is preserved. Symmetric attenuation of the optic nerves and ocular rectus muscles Aerodigestive tract is patent. Limited evaluation due to dental amalgam artifact. Atherosclerosis of the visualized carotid bifurcation Symmetric attenuation visualized submandibular and parotid gland There are degenerative changes of the upper cervical spine. Mandible, maxilla and zygomatic arches are intact Adequate aeration of the sinuses and mastoid air cells. Sclerosis and hypertrophy along the right max illary sinus osseous margins suggesting changes from chronic sinusitis. Bilateral ostiomeatal complexes are patent. Merry bullosa involving bilateral superior turbinates. Rightward deviation nasal septum. No evidence of a nasal bone fracture There is a left frontal and left supraorbital hematoma. Additional inflammatory changes are noted in the left periorbital region and overlying the left zygomatic arch and left maxillary sinus IMPRESSION: 1. Posttraumatic hematoma involving the left periorbital region, left scalp and left facial soft tiss ues. 2. No fracture.
--- NOTE | 2020-01-08 16:33 | CT ---
CT HEAD WITHOUT CONTRAST: Date: 01/08/2020 INDICATION: Fall with injury to head and face. Trauma. Comparison made to head CT of 06/18/2019. FINDINGS: Mild cortical volume loss. Mild chronic ischemic white matter changes appear stable. No evidence of i ntracranial hemorrhage or infarct. No mass or edema. Scalp hematoma over the left orbit and frontal bone. No evidence of skull fracture. Paranasal sinuses and mastoids are clear. IMPRESSION: No acute intracranial abnormality. POS: [facility]
== END 2020-01-08 17:55 | disposition home or self-care (01) ==
LOC: ERS 15:29
DX: S01.512A Laceration without foreign body of oral cavity, initial encounter (principal); I10 Essential (primary) hypertension; E11.9 Type 2 diabetes mellitus without complications; I48.91 Unspecified atrial fibrillation; Z79.899 Other long term (current) drug therapy; Z79.01 Long term (current) use of anticoagulants; W10.1XXA Fall (on)(from) sidewalk curb, initial encounter
CPT/HCPCS: 70450; 70486

== ENCOUNTER 2021-05-23 17:05 | Emergency (ER) | payer MEDICARE ==
[2021-05-23] MEDS ORDERED: Bacitracin 1 PK ONE (17:21)
[2021-05-23] MEDS ORDERED: Acetaminophen 500 MG TAB ONE (17:21)
[2021-05-23] MEDS ORDERED: Lidocaine 1% PF 5 ML VIAL ONE (17:21)
== END 2021-05-23 18:52 | disposition home or self-care (01) ==
LOC: ERS 17:05
DX: S01.81XA Laceration without foreign body of other part of head, initial encounter (principal); S80.01XA Contusion of right knee, initial encounter; E66.9 Obesity, unspecified; E11.9 Type 2 diabetes mellitus without complications; I10 Essential (primary) hypertension; I48.91 Unspecified atrial fibrillation; W19.XXXA Unspecified fall, initial encounter
CPT/HCPCS: 12011; 70450; 72125

== ENCOUNTER 2021-06-09 17:30 | Outpatient (CLI) | payer MEDICARE | END 2021-06-09 17:31 | disposition home or self-care (01) | LOC: SLEEPLAB 17:30 | PROVIDERS: ATTEND Family Medicine | DX: G47.33 Obstructive sleep apnea (adult) (pediatric) (principal); R06.83 Snoring; I48.91 Unspecified atrial fibrillation; G47.00 Insomnia, unspecified; K21.9 Gastro-esophageal reflux disease without esophagitis; E11.9 Type 2 diabetes mellitus without complications; I10 Essential (primary) hypertension; R09.02 Hypoxemia | CPT/HCPCS: 95806 ==

== ENCOUNTER 2022-07-21 20:18 | Inpatient (IN) | payer MEDICARE ==
[2022-07-21 22:03] LABS: Bacteria/HPF 2+ HPF (None Seen); Bilirubin Negative (Negative); Blood, Urine Trace (Negative); Clarity Clear (Clear); Glucose, Urine (Dipstick) 50 mg/dL (Negative); Ketone, Urine Negative (Negative); Leukocyte Negative Leu/uL (Negative); Nitrite Negative (Negative); Protein, Urine (Dipstick) 300 mg/dL (Neg-Trace); Specific Gravity, Urine 1.013 (1.002-1.036); Urobilinogen Normal mg/dL (Less than 2); pH, Urine 7.5 (5.0-9.0)
[2022-07-21 22:23] LABS: #Lymphocytes 1.5 thou/uL (1.20-3.40); #Monocytes 0.5 thou/uL (0.11-0.59); #Neutrophils 8.5 thou/uL (1.40-6.50); %Basophils 0.1 % (0.0-1.0); %Eosinophils 0.1 % (0.0-10.0); %Lymphocytes 14.6 % (21.0-51.0); %Monocytes 4.6 % (0.0-10.0); %Neutrophils 80.5 % (42.0-75.0); Mean Corpuscular HGB CONC 32.7 g/dL (32.0-36.0); Mean Corpuscular Hemoglobin 29.1 pg (27.0-31.0); Mean Corpuscular Volume 88.8 fl (78.0-98.0); Mean Platelet Volume 10.4 fL (7.4-10.4); Platelet Count 247 10x3/uL (130-400); RBC Distribution Width 12.7 % (11.5-14.5); Red Blood Cell (RBC) Count 5.16 mill/uL (4.20-5.40); White Blood Cell (WBC) Count 10.5 10x3/uL (4.8-10.8)
[2022-07-21 22:44] LABS: ALT (SGPT) 16 U/L (8-55); AST (SGOT) 24 U/L (5-34); Alkaline Phosphatase 97 U/L (40-110); Anion Gap 16 mmol/L (10-20); BUN (Urea Nitrogen) 16 mg/dL (9.8-20.1); Bilirubin, Total 0.8 mg/dL (0.2-1.2); Calc. Creatinine Clearance 0 mL/min (70-130); Calcium 9.5 mg/dL (7.8-10.44); Carbon Dioxide 24 mmol/L (23-31); Chloride 103 mmol/L (98-107); Estimated GFR 65; Globulin 3.3 g/dL (2.4-3.5); Glucose 112 mg/dL (83-110); Potassium 3.6 mmol/L (3.5-5.1); Protein, Total 7.3 g/dL (5.8-8.1); Sodium 139 mmol/L (136-145)
[2022-07-21 23:05] LABS: SARS-CoV-2 NAA Rapid Test Not Detected (NotDetected)
[2022-07-22] MEDS ORDERED: Nitroglycerin 2% Ointment 1 INCH/1 GM Packet ONE (01:56)
[2022-07-22] MEDS ORDERED: Furosemide 40 MG/4 ML VIAL ONE (01:57)
[2022-07-22] MEDS ORDERED: Aspirin Chewable 81 MG TAB ONE ×2 (01:58→09:31)
[2022-07-22] MEDS ORDERED: Senokot S 8.6-50 MG TAB PO PRN (02:31)
[2022-07-22] MEDS ORDERED: Ondansetron ODT 4 MG TAB PO PRN (02:31)
[2022-07-22] MEDS ORDERED: Calcium Carbonate 500 MG ChewTAB PO PRN (02:31)
[2022-07-22] MEDS ORDERED: Ondansetron PF 4 MG/2 ML Vial IVP PRN (02:31)
[2022-07-22] MEDS ORDERED: Dextrose 5% in Water 1,000 ML IV PRN (02:33)
[2022-07-22] MEDS ORDERED: Dextrose 50% Abboject 50 ML SYRINGE SLOW IVP PRN (02:33)
[2022-07-22] MEDS ORDERED: Furosemide 20 MG/2 ML VIAL ONE (05:06)
[2022-07-22] MEDS: Furosemide 20 MG/2 ML VIAL SLOW IVP SCH ×2 (05:10→14:15)
[2022-07-22] MEDS ORDERED: Acetaminophen 325 MG TAB ONE (06:08)
[2022-07-22] MEDS: Acetaminophen 325 MG TAB PO PRN (06:10)
[2022-07-22 06:27] LABS: #Lymphocytes 1.2 thou/uL (1.20-3.40); #Monocytes 0.6 thou/uL (0.11-0.59); #Neutrophils 10.3 thou/uL (1.40-6.50); %Basophils 0.2 % (0.0-1.0); %Eosinophils 0.2 % (0.0-10.0); %Lymphocytes 9.9 % (21.0-51.0); %Monocytes 5.1 % (0.0-10.0); %Neutrophils 84.6 % (42.0-75.0); Hemoglobin 15.4 g/dL (12.0-16.0); Mean Corpuscular HGB CONC 32.4 g/dL (32.0-36.0); Mean Corpuscular Hemoglobin 28.8 pg (27.0-31.0); Mean Platelet Volume 10.4 fL (7.4-10.4); Platelet Count 248 10x3/uL (130-400); RBC Distribution Width 12.7 % (11.5-14.5); Red Blood Cell (RBC) Count 5.36 mill/uL (4.20-5.40); White Blood Cell (WBC) Count 12.2 10x3/uL (4.8-10.8)
[2022-07-22 06:31] LABS: Hemoglobin A1c 5.7 % (4.0-6.0)
[2022-07-22 06:33] LABS: Magnesium 1.8 mg/dL (1.6-2.6)
[2022-07-22 06:37] LABS: Troponin I 0.018 ng/mL (< 0.028)
[2022-07-22] MEDS ORDERED: Losartan 25 MG TAB PO SCH (09:00)
[2022-07-22] MEDS ORDERED: Famotidine 20 MG TAB ONE (09:31)
[2022-07-22] MEDS: Aspirin Chewable 81 MG TAB PO SCH (09:37)
[2022-07-22] MEDS: hydrALAZINE 10 MG TAB PO SCH ×2 (09:37→20:04)
[2022-07-22] MEDS: Famotidine 20 MG TAB PO SCH ×2 (09:37→20:05)
[2022-07-22 13:04] VITALS: BMI 31.6
[2022-07-22] MEDS ORDERED: FLU VACC QS2022-23(65YR UP)/PF 240 MCG/0.7 ML SYRINGE IM ONE (13:30)
[2022-07-22] MEDS ORDERED: Spironolactone 25 MG TAB PO SCH (17:31)
[2022-07-22] MEDS: Atorvastatin Calcium 20 MG TAB PO SCH (20:04)
[2022-07-22] MEDS: Multivit, Therapeutic 1 TAB PO SCH (20:05)
[2022-07-22] MEDS: Insulin Glargine 30 UNITS/0.3 ML VIAL SC SCH (20:38)
[2022-07-22] MEDS ORDERED: hydrALAZINE 10 MG TAB PO SCH (23:45)
[2022-07-23] MEDS ORDERED: hydrALAZINE 20 MG/ML VIAL SLOW IVP SCH (01:30)
[2022-07-23] MEDS: Acetaminophen 325 MG TAB PO PRN (02:27)
[2022-07-23] MEDS ORDERED: Benzonatate 100 MG CAP PO PRN (02:32)
[2022-07-23 05:04] LABS: Anion Gap 16 mmol/L (10-20); BUN (Urea Nitrogen) 27 mg/dL (9.8-20.1); Calc. Creatinine Clearance 41 mL/min (70-130); Calcium 8.8 mg/dL (7.8-10.44); Carbon Dioxide 28 mmol/L (23-31); Chloride 98 mmol/L (98-107); Estimated GFR 44; Glucose 124 mg/dL (83-110); Sodium 139 mmol/L (136-145)
[2022-07-23] MEDS: Furosemide 20 MG/2 ML VIAL SLOW IVP SCH (05:05)
[2022-07-23 05:09] LABS: Potassium 2.6 mmol/L (3.5-5.1)
[2022-07-23] MEDS: Potassium Chloride 20 MEQ in Premix Bag 1 BAG IVPB SCH ×2 (05:28→09:22)
[2022-07-23] MEDS ORDERED: Potassium Chloride 20 MEQ TAB PO SCH (06:00)
[2022-07-23] MEDS ORDERED: Electrolyte Replacement Protocol 1 EACH FS SCH (07:45)
[2022-07-23] MEDS ORDERED: Magnesium 2 GM/50 ML(in water) 2 GM in Premix Bag 1 BAG IVPB SCH (08:15)
[2022-07-23] MEDS: Famotidine 20 MG TAB PO SCH (09:22)
[2022-07-23] MEDS: hydrALAZINE 10 MG TAB PO SCH ×2 (09:24→20:27)
[2022-07-23] MEDS: Empagliflozin 10 MG TAB PO SCH (09:26)
[2022-07-23] MEDS: Spironolactone 25 MG TAB PO SCH (09:26)
[2022-07-23] MEDS: Carvedilol 6.25 MG TAB PO SCH ×2 (09:26→17:19)
[2022-07-23] MEDS: Aspirin Chewable 81 MG TAB PO SCH (09:27)
[2022-07-23] MEDS: Atorvastatin Calcium 20 MG TAB PO SCH (20:27)
[2022-07-23] MEDS: Multivit, Therapeutic 1 TAB PO SCH (20:27)
[2022-07-23] MEDS: Insulin Glargine 30 UNITS/0.3 ML VIAL SC SCH (20:27)
[2022-07-24 05:03] LABS: #Eosinphils 0.1 thou/uL (0.0-0.7); #Lymphocytes 1.7 thou/uL (1.20-3.40); #Monocytes 0.7 thou/uL (0.11-0.59); #Neutrophils 8.3 thou/uL (1.40-6.50); %Basophils 0.1 % (0.0-1.0); %Lymphocytes 15.9 % (21.0-51.0); Hemoglobin 14.9 g/dL (12.0-16.0); Mean Corpuscular HGB CONC 33.5 g/dL (32.0-36.0); Mean Corpuscular Hemoglobin 29.6 pg (27.0-31.0); Mean Corpuscular Volume 88.5 fl (78.0-98.0); Mean Platelet Volume 10.9 fL (7.4-10.4); Platelet Count 231 10x3/uL (130-400); RBC Distribution Width 12.7 % (11.5-14.5); Red Blood Cell (RBC) Count 5.02 mill/uL (4.20-5.40); White Blood Cell (WBC) Count 10.7 10x3/uL (4.8-10.8)
[2022-07-24 05:23] LABS: Anion Gap 14 mmol/L (10-20); BUN (Urea Nitrogen) 27 mg/dL (9.8-20.1); Calc. Creatinine Clearance 41 mL/min (70-130); Calcium 9.1 mg/dL (7.8-10.44); Carbon Dioxide 26 mmol/L (23-31); Chloride 102 mmol/L (98-107); Estimated GFR 45; Glucose 99 mg/dL (83-110); Potassium 3.3 mmol/L (3.5-5.1); Sodium 139 mmol/L (136-145)
[2022-07-24] MEDS ORDERED: Potassium Chloride 20 MEQ TAB PO SCH (08:00)
[2022-07-24] MEDS: Famotidine 20 MG TAB PO SCH (09:18)
[2022-07-24] MEDS: Carvedilol 6.25 MG TAB PO SCH ×2 (09:19→17:23)
[2022-07-24] MEDS: Sacubitril 49 MG/Valsartan 51 MG TABLET PO SCH ×2 (09:20→20:38)
[2022-07-24] MEDS: Aspirin Chewable 81 MG TAB PO SCH (09:20)
[2022-07-24] MEDS: hydrALAZINE 25 MG TAB PO SCH ×2 (09:20→20:40)
[2022-07-24] MEDS: Spironolactone 25 MG TAB PO SCH (09:20)
[2022-07-24] MEDS: Empagliflozin 10 MG TAB PO SCH (09:21)
[2022-07-24] MEDS ORDERED: Electrolyte Replacement Protocol 1 EACH FS SCH (11:00)
[2022-07-24] MEDS ORDERED: Amoxicillin/Potassium Clav 875 MG TAB PO SCH (12:00)
[2022-07-24] MEDS: HumaLOG 300 UNITS/3 ML VIAL SC PRN (12:17)
[2022-07-24] MEDS: Acetaminophen 325 MG TAB PO PRN (17:55)
[2022-07-24] MEDS: Insulin Glargine 30 UNITS/0.3 ML VIAL SC SCH (20:38)
[2022-07-24] MEDS: Amoxicillin/Potassium Clav 875 MG TAB PO SCH (20:40)
[2022-07-24] MEDS: Atorvastatin Calcium 20 MG TAB PO SCH (20:40)
[2022-07-24] MEDS: Multivit, Therapeutic 1 TAB PO SCH (20:40)
[2022-07-25] MEDS: Acetaminophen 325 MG TAB PO PRN (03:45)
[2022-07-25 06:04] LABS: #Eosinphils 0.1 thou/uL (0.0-0.7); #Lymphocytes 1.3 thou/uL (1.20-3.40); #Monocytes 0.6 thou/uL (0.11-0.59); #Neutrophils 7.3 thou/uL (1.40-6.50); %Basophils 0.3 % (0.0-1.0); %Eosinophils 1.1 % (0.0-10.0); %Lymphocytes 13.7 % (21.0-51.0); Hemoglobin 14.3 g/dL (12.0-16.0); Mean Corpuscular HGB CONC 31.6 g/dL (32.0-36.0); Mean Corpuscular Hemoglobin 28.3 pg (27.0-31.0); Mean Corpuscular Volume 89.5 fl (78.0-98.0); Mean Platelet Volume 10.6 fL (7.4-10.4); Platelet Count 232 10x3/uL (130-400); RBC Distribution Width 12.8 % (11.5-14.5); Red Blood Cell (RBC) Count 5.05 mill/uL (4.20-5.40); White Blood Cell (WBC) Count 9.3 10x3/uL (4.8-10.8)
[2022-07-25 06:49] LABS: Anion Gap 15 mmol/L (10-20); BUN (Urea Nitrogen) 27 mg/dL (9.8-20.1); Calc. Creatinine Clearance 40 mL/min (70-130); Calcium 8.6 mg/dL (7.8-10.44); Carbon Dioxide 23 mmol/L (23-31); Chloride 103 mmol/L (98-107); Estimated GFR 41; Glucose 134 mg/dL (83-110); Potassium 3.4 mmol/L (3.5-5.1); Sodium 138 mmol/L (136-145)
[2022-07-25] MEDS ORDERED: Potassium Chloride 20 MEQ TAB PO SCH (08:00)
[2022-07-25] MEDS ORDERED: Electrolyte Replacement Protocol 1 EACH FS SCH (08:00)
[2022-07-25] MEDS: hydrALAZINE 25 MG TAB PO SCH ×2 (09:45→20:28)
[2022-07-25] MEDS: Spironolactone 25 MG TAB PO SCH (09:45)
[2022-07-25] MEDS: Aspirin Chewable 81 MG TAB PO SCH (09:45)
[2022-07-25] MEDS: Carvedilol 6.25 MG TAB PO SCH (09:45)
[2022-07-25] MEDS: Famotidine 20 MG TAB PO SCH (09:45)
[2022-07-25] MEDS: Amoxicillin/Potassium Clav 875 MG TAB PO SCH ×2 (09:45→20:27)
[2022-07-25] MEDS: Sacubitril 49 MG/Valsartan 51 MG TABLET PO SCH ×2 (11:43→20:27)
[2022-07-25] MEDS: Empagliflozin 10 MG TAB PO SCH (11:43)
[2022-07-25] MEDS: Carvedilol 25 MG TAB PO SCH (17:46)
[2022-07-25] MEDS: HumaLOG 300 UNITS/3 ML VIAL SC PRN (17:46)
[2022-07-25] MEDS: Insulin Glargine 30 UNITS/0.3 ML VIAL SC SCH (20:27)
[2022-07-25] MEDS: Atorvastatin Calcium 20 MG TAB PO SCH (20:28)
[2022-07-25] MEDS: Multivit, Therapeutic 1 TAB PO SCH (20:29)
[2022-07-26 06:51] LABS: Anion Gap 14 mmol/L (10-20); BUN (Urea Nitrogen) 25 mg/dL (9.8-20.1); Calc. Creatinine Clearance 43 mL/min (70-130); Calcium 8.9 mg/dL (7.8-10.44); Carbon Dioxide 24 mmol/L (23-31); Chloride 105 mmol/L (98-107); Estimated GFR 46; Glucose 116 mg/dL (83-110); Sodium 139 mmol/L (136-145)
[2022-07-26] MEDS: Famotidine 20 MG TAB PO SCH (08:09)
[2022-07-26] MEDS: hydrALAZINE 25 MG TAB PO SCH ×2 (08:09→21:26)
[2022-07-26] MEDS: Spironolactone 25 MG TAB PO SCH (08:09)
[2022-07-26] MEDS: Empagliflozin 10 MG TAB PO SCH (08:09)
[2022-07-26] MEDS: Amoxicillin/Potassium Clav 875 MG TAB PO SCH ×2 (08:09→21:25)
[2022-07-26] MEDS: Sacubitril 49 MG/Valsartan 51 MG TABLET PO SCH ×2 (08:09→21:25)
[2022-07-26] MEDS: Carvedilol 25 MG TAB PO SCH ×2 (08:10→16:01)
[2022-07-26] MEDS: Potassium Chloride 10 MEQ TAB PO SCH (08:10)
[2022-07-26] MEDS: Aspirin Chewable 81 MG TAB PO SCH (08:10)
[2022-07-26] MEDS: Acetaminophen 325 MG TAB PO PRN (09:31)
[2022-07-26] MEDS: HumaLOG 300 UNITS/3 ML VIAL SC PRN ×2 (11:37→17:54)
[2022-07-26] MEDS: Multivit, Therapeutic 1 TAB PO SCH (21:24)
[2022-07-26] MEDS: Insulin Glargine 30 UNITS/0.3 ML VIAL SC SCH (21:25)
[2022-07-26] MEDS: Atorvastatin Calcium 20 MG TAB PO SCH (21:26)
[2022-07-27] MEDS: Acetaminophen 325 MG TAB PO PRN (06:15)
[2022-07-27 08:50] VITALS: BP 140/86; TEMP 97.5
[2022-07-27] MEDS ORDERED: hydrALAZINE 25 MG TAB PO SCH (09:00)
[2022-07-27] MEDS: Spironolactone 25 MG TAB PO SCH (09:29)
[2022-07-27] MEDS: Potassium Chloride 10 MEQ TAB PO SCH (09:29)
[2022-07-27] MEDS: Carvedilol 25 MG TAB PO SCH (09:29)
[2022-07-27] MEDS: Aspirin Chewable 81 MG TAB PO SCH (09:29)
[2022-07-27] MEDS: Amoxicillin/Potassium Clav 875 MG TAB PO SCH (09:29)
[2022-07-27] MEDS: Empagliflozin 10 MG TAB PO SCH (09:30)
[2022-07-27] MEDS: Famotidine 20 MG TAB PO SCH (09:30)
[2022-07-27] MEDS: Sacubitril 49 MG/Valsartan 51 MG TABLET PO SCH (09:32)
== END 2022-07-27 13:22 | disposition home health service (06) | DRG 291 ==
LOC: ERS 20:18 → ERHOLD 07-22 02:02 → 2NO 07-22 12:52 → OBSVTOIN 07-23 11:30 → MSONC 07-24 15:19
PROVIDERS: ADMIT Internal Medicine; ATTEND Internal Medicine
DX: I13.0 Hypertensive heart and chronic kidney disease with heart failure and stage 1 through stage 4 chronic kidney disease, or unspecified chronic kidney disease (principal); I50.21 Acute systolic (congestive) heart failure; I48.21 Permanent atrial fibrillation; Z20.822 Contact with and (suspected) exposure to COVID-19; I16.0 Hypertensive urgency; J02.9 Acute pharyngitis, unspecified; I35.2 Nonrheumatic aortic (valve) stenosis with insufficiency; E87.6 Hypokalemia; E83.42 Hypomagnesemia; E11.22 Type 2 diabetes mellitus with diabetic chronic kidney disease; E66.9 Obesity, unspecified; I42.8 Other cardiomyopathies; E78.5 Hyperlipidemia, unspecified; F41.9 Anxiety disorder, unspecified; R29.6 Repeated falls; Z91.81 History of falling; Z95.818 Presence of other cardiac implants and grafts; Z68.32 Body mass index [BMI] 32.0-32.9, adult; Z91.018 Allergy to other foods; Z79.899 Other long term (current) drug therapy; Z79.4 Long term (current) use of insulin; Z90.710 Acquired absence of both cervix and uterus
CPT/HCPCS: 36415; 36416; 71045; 80048; 80053; 81003; 81015; 83036; 83735; 83880; 84484; 85025; 93005; 93306; 93798; 96372; 96374; 96375; 96376; 97139; G0378; J0360; J1650; J1815; J1940; J3475; J3480

== ENCOUNTER 2022-08-30 13:02 | Emergency (ER) | payer MEDICARE | END 2022-08-30 14:40 | disposition home or self-care (01) | LOC: ERS 13:02 | DX: I10 Essential (primary) hypertension (principal); E11.9 Type 2 diabetes mellitus without complications; E66.9 Obesity, unspecified | CPT/HCPCS: 99283 ==

== ENCOUNTER 2022-09-21 17:21 | Inpatient (IN) | payer MEDICARE ==
[2022-09-21 17:56] LABS: #Eosinphils 0.1 thou/uL (0.0-0.7); #Monocytes 0.3 thou/uL (0.11-0.59); %Basophils 0.5 % (0.0-1.0); %Eosinophils 1.2 % (0.0-10.0); %Lymphocytes 16.7 % (21.0-51.0); %Monocytes 4.9 % (0.0-10.0); %Neutrophils 76.4 % (42.0-75.0); Hemoglobin 12.6 g/dL (12.0-16.0); Mean Corpuscular HGB CONC 31.5 g/dL (32.0-36.0); Mean Corpuscular Volume 88.9 fl (78.0-98.0); Mean Platelet Volume 11.8 fL (7.4-10.4); Platelet Count 247 10x3/uL (130-400); RBC Distribution Width 14.9 % (11.5-14.5); White Blood Cell (WBC) Count 6.6 10x3/uL (4.8-10.8)
[2022-09-21 18:16] LABS: ALT (SGPT) 55 U/L (8-55); AST (SGOT) 34 U/L (5-34); Albumin 3.7 g/dL (3.4-4.8); Alkaline Phosphatase 92 U/L (40-110); Anion Gap 15 mmol/L (10-20); BUN (Urea Nitrogen) 25 mg/dL (9.8-20.1); Bilirubin, Total 0.4 mg/dL (0.2-1.2); Calc. Creatinine Clearance 0 mL/min (70-130); Calcium 8.7 mg/dL (7.8-10.44); Carbon Dioxide 21 mmol/L (23-31); Chloride 109 mmol/L (98-107); Estimated GFR 32; Globulin 2.4 g/dL (2.4-3.5); Glucose 167 mg/dL (83-110); Potassium 4.1 mmol/L (3.5-5.1); Protein, Total 6.1 g/dL (5.8-8.1); Sodium 141 mmol/L (136-145)
[2022-09-21] MEDS ORDERED: Furosemide 40 MG/4 ML VIAL ONE (20:14)
[2022-09-21] MEDS ORDERED: Aspirin Chewable 81 MG TAB ONE (20:14)
[2022-09-21] MEDS ORDERED: Senokot S 8.6-50 MG TAB PO PRN (20:15)
[2022-09-21] MEDS ORDERED: Ondansetron ODT 4 MG TAB PO PRN (20:15)
[2022-09-21] MEDS ORDERED: Nitroglycerin 2% Ointment 1 INCH/1 GM Packet ONE (20:15)
[2022-09-21] MEDS ORDERED: hydrALAZINE 25 MG TAB PO SCH (21:00)
[2022-09-21 22:11] LABS: Troponin I Less than 0.010 ng/mL (< 0.028)
[2022-09-21] MEDS: Atorvastatin Calcium 20 MG TAB PO SCH ×2 (23:03→23:04)
[2022-09-21] MEDS: Sacubitril 49 MG/Valsartan 51 MG TABLET PO SCH (23:04)
[2022-09-22] MEDS ORDERED: Carvedilol 25 MG TAB PO SCH (00:45)
[2022-09-22 00:48] VITALS: BMI 36.7
[2022-09-22 01:13] LABS: Troponin I 0.017 ng/mL (< 0.028)
[2022-09-22 04:29] LABS: #Basophils 0.1 thou/uL (0.0-0.2); #Eosinphils 0.1 thou/uL (0.0-0.7); #Monocytes 0.5 thou/uL (0.11-0.59); #Neutrophils 5.4 thou/uL (1.40-6.50); %Basophils 0.7 % (0.0-1.0); %Eosinophils 1.1 % (0.0-10.0); %Lymphocytes 18.1 % (21.0-51.0); %Monocytes 6.4 % (0.0-10.0); %Neutrophils 73.3 % (42.0-75.0); Hemoglobin 11.7 g/dL (12.0-16.0); Mean Corpuscular HGB CONC 30.5 g/dL (32.0-36.0); Mean Corpuscular Hemoglobin 27.3 pg (27.0-31.0); Mean Corpuscular Volume 89.5 fl (78.0-98.0); Mean Platelet Volume 12.1 fL (7.4-10.4); Platelet Count 216 10x3/uL (130-400); Red Blood Cell (RBC) Count 4.29 mill/uL (4.20-5.40); White Blood Cell (WBC) Count 7.4 10x3/uL (4.8-10.8)
[2022-09-22 04:55] LABS: ALT (SGPT) 46 U/L (8-55); AST (SGOT) 28 U/L (5-34); Albumin 3.2 g/dL (3.4-4.8); Alkaline Phosphatase 74 U/L (40-110); Anion Gap 11 mmol/L (10-20); BUN (Urea Nitrogen) 24 mg/dL (9.8-20.1); Bilirubin, Total 0.4 mg/dL (0.2-1.2); Calc. Creatinine Clearance 42 mL/min (70-130); Calcium 8.7 mg/dL (7.8-10.44); Carbon Dioxide 25 mmol/L (23-31); Chloride 109 mmol/L (98-107); Estimated GFR 38; Globulin 2.3 g/dL (2.4-3.5); Glucose 124 mg/dL (83-110); Potassium 3.4 mmol/L (3.5-5.1); Protein, Total 5.5 g/dL (5.8-8.1); Sodium 142 mmol/L (136-145)
[2022-09-22] MEDS: Acetaminophen 325 MG TAB PO PRN ×2 (04:56→23:43)
[2022-09-22] MEDS: Furosemide 40 MG/4 ML VIAL SLOW IVP SCH ×2 (05:00→14:46)
[2022-09-22] MEDS: hydrALAZINE 25 MG TAB PO SCH ×3 (08:57→21:03)
[2022-09-22] MEDS: Sacubitril 49 MG/Valsartan 51 MG TABLET PO SCH ×2 (08:57→21:03)
[2022-09-22] MEDS: Spironolactone 25 MG TAB PO SCH (08:57)
[2022-09-22] MEDS: Empagliflozin 10 MG TAB PO SCH (08:57)
[2022-09-22] MEDS: Carvedilol 25 MG TAB PO SCH ×2 (08:57→17:02)
[2022-09-22] MEDS: Aspirin 81 mg Enteric Coated Tablet PO SCH (08:57)
[2022-09-22] MEDS: Isosorbide Dinitrate 20 MG TAB PO SCH ×3 (08:57→21:03)
[2022-09-22] MEDS ORDERED: Calcium Carbonate 500 MG ChewTAB PO PRN (10:54)
[2022-09-22] MEDS: Loperamide HCl 2 MG CAP PO PRN (17:02)
[2022-09-23] MEDS: Furosemide 40 MG/4 ML VIAL SLOW IVP SCH (06:31)
[2022-09-23 08:21] LABS: Anion Gap 15 mmol/L (10-20); BUN (Urea Nitrogen) 23 mg/dL (9.8-20.1); Calc. Creatinine Clearance 34 mL/min (70-130); Calcium 8.9 mg/dL (7.8-10.44); Carbon Dioxide 26 mmol/L (23-31); Chloride 104 mmol/L (98-107); Estimated GFR 29; Glucose 116 mg/dL (83-110); Potassium 3.5 mmol/L (3.5-5.1); Sodium 141 mmol/L (136-145)
[2022-09-23] MEDS ORDERED: Isosorbide Dinitrate 20 MG TAB PO SCH (09:00)
[2022-09-23] MEDS: hydrALAZINE 25 MG TAB PO SCH (09:09)
[2022-09-23] MEDS: Aspirin 81 mg Enteric Coated Tablet PO SCH (09:09)
[2022-09-23] MEDS: Spironolactone 25 MG TAB PO SCH (09:09)
[2022-09-23] MEDS: Empagliflozin 10 MG TAB PO SCH (09:09)
[2022-09-23] MEDS: Carvedilol 25 MG TAB PO SCH (09:09)
[2022-09-23] MEDS: Sacubitril 49 MG/Valsartan 51 MG TABLET PO SCH (09:10)
[2022-09-23] MEDS: Loperamide HCl 2 MG CAP PO PRN (09:10)
[2022-09-23 11:57] VITALS: TEMP 98.7
[2022-09-23 14:00] VITALS: BP 99/57
== END 2022-09-23 14:00 | disposition home or self-care (01) | DRG 291 ==
LOC: ERS 17:21 → 2NO 20:13
PROVIDERS: ADMIT Student in an Organized Health Care Education/Training Program; ATTEND Family Medicine
DX: I13.0 Hypertensive heart and chronic kidney disease with heart failure and stage 1 through stage 4 chronic kidney disease, or unspecified chronic kidney disease (principal); I50.33 Acute on chronic diastolic (congestive) heart failure; I48.21 Permanent atrial fibrillation; N17.9 Acute kidney failure, unspecified; E11.22 Type 2 diabetes mellitus with diabetic chronic kidney disease; N18.31 Chronic kidney disease, stage 3a; E78.5 Hyperlipidemia, unspecified; G47.33 Obstructive sleep apnea (adult) (pediatric); E66.9 Obesity, unspecified; I35.0 Nonrheumatic aortic (valve) stenosis; Z90.710 Acquired absence of both cervix and uterus; Z79.01 Long term (current) use of anticoagulants; Z79.899 Other long term (current) drug therapy; Z91.018 Allergy to other foods; Z79.82 Long term (current) use of aspirin; Z68.36 Body mass index [BMI] 36.0-36.9, adult
CPT/HCPCS: 36415; 36416; 71045; 80048; 80053; 82550; 83880; 84484; 85025; 93005; 96374; J1650; J1940

== ENCOUNTER 2023-04-02 20:38 | Inpatient (IN) | payer MEDICARE ==
[2023-04-02] MEDS ORDERED: Ondansetron PF 4 MG/2 ML Vial ONE (21:00)
[2023-04-02 21:30] LABS: #Monocytes 0.5 thou/uL (0.11-0.59); #Neutrophils 6.2 thou/uL (1.40-6.50); %Basophils 0.4 % (0.0-1.0); %Eosinophils 0.1 % (0.0-10.0); %Monocytes 6.4 % (0.0-10.0); %Neutrophils 80.7 % (42.0-75.0); Hematocrit 40.7 % (36.0-47.0); Mean Corpuscular HGB CONC 31.9 g/dL (32.0-36.0); Mean Corpuscular Hemoglobin 28.8 pg (27.0-31.0); Mean Platelet Volume 12.2 fL (7.4-10.4); Platelet Count 202 10x3/uL (130-400); RBC Distribution Width 12.6 % (11.5-14.5); Red Blood Cell (RBC) Count 4.52 mill/uL (4.20-5.40); White Blood Cell (WBC) Count 7.7 10x3/uL (4.8-10.8)
[2023-04-02 21:53] LABS: ALT (SGPT) 14 U/L (8-55); AST (SGOT) 19 U/L (5-34); Albumin 3.7 g/dL (3.4-4.8); Alkaline Phosphatase 60 U/L (40-110); Anion Gap 18 mmol/L (10-20); BUN (Urea Nitrogen) 31 mg/dL (9.8-20.1); Bilirubin, Total 0.8 mg/dL (0.2-1.2); Calc. Creatinine Clearance 0 mL/min (70-130); Calcium 9.7 mg/dL (7.8-10.44); Carbon Dioxide 25 mmol/L (23-31); Chloride 102 mmol/L (98-107); Estimated GFR 24; Globulin 2.3 g/dL (2.4-3.5); Glucose 89 mg/dL (83-110); Potassium 3.2 mmol/L (3.5-5.1); Sodium 142 mmol/L (136-145)
[2023-04-03] MEDS ORDERED: Ondansetron ODT 4 MG TAB PO PRN (00:03)
[2023-04-03] MEDS ORDERED: Ondansetron PF 4 MG/2 ML Vial IVP PRN (00:03)
[2023-04-03] MEDS ORDERED: Acetaminophen 325 MG TAB PO PRN (00:03)
[2023-04-03] MEDS ORDERED: Dextrose 5%-Lactated Ringers 1,000 ML IV SCH (00:15)
[2023-04-03 00:55] LABS: SARS-CoV-2 NAA Rapid Test Not Detected (NotDetected)
[2023-04-03 05:01] LABS: #Monocytes 0.4 thou/uL (0.11-0.59); #Neutrophils 5.9 thou/uL (1.40-6.50); %Basophils 0.5 % (0.0-1.0); %Eosinophils 0.3 % (0.0-10.0); %Lymphocytes 12.8 % (21.0-51.0); %Monocytes 5.7 % (0.0-10.0); %Neutrophils 80.4 % (42.0-75.0); Hemoglobin 12.5 g/dL (12.0-16.0); Mean Corpuscular HGB CONC 31.3 g/dL (32.0-36.0); Mean Corpuscular Hemoglobin 28.7 pg (27.0-31.0); Mean Corpuscular Volume 91.7 fl (78.0-98.0); Mean Platelet Volume 12.4 fL (7.4-10.4); Platelet Count 206 10x3/uL (130-400); RBC Distribution Width 12.5 % (11.5-14.5); Red Blood Cell (RBC) Count 4.36 mill/uL (4.20-5.40); White Blood Cell (WBC) Count 7.3 10x3/uL (4.8-10.8)
[2023-04-03 05:14] LABS: ALT (SGPT) 14 U/L (8-55); AST (SGOT) 18 U/L (5-34); Albumin 3.6 g/dL (3.4-4.8); Alkaline Phosphatase 53 U/L (40-110); Anion Gap 18 mmol/L (10-20); BUN (Urea Nitrogen) 31 mg/dL (9.8-20.1); Bilirubin, Total 0.8 mg/dL (0.2-1.2); Calc. Creatinine Clearance 26 mL/min (70-130); Calcium 9.6 mg/dL (7.8-10.44); Carbon Dioxide 25 mmol/L (23-31); Chloride 104 mmol/L (98-107); Estimated GFR 24; Globulin 2.3 g/dL (2.4-3.5); Glucose 78 mg/dL (83-110); Protein, Total 5.9 g/dL (5.8-8.1); Sodium 144 mmol/L (136-145)
[2023-04-03] MEDS ORDERED: Potassium Chloride 20 MEQ TAB PO SCH ×2 (07:45→08:15)
[2023-04-03] MEDS: Isosorbide Dinitrate 20 MG TAB PO SCH ×3 (08:13→23:25)
[2023-04-03] MEDS: Famotidine/PF 20 mg/2ml Vial SLOW IVP SCH (08:13)
[2023-04-03] MEDS: Empagliflozin 10 MG TAB PO SCH (08:13)
[2023-04-03] MEDS: Carvedilol 25 MG TAB PO SCH ×2 (08:13→16:29)
[2023-04-03] MEDS: Spironolactone 25 MG TAB PO SCH (08:14)
[2023-04-03] MEDS ORDERED: Famotidine 20 MG TAB PO SCH (09:00)
[2023-04-03] MEDS ORDERED: Sacubitril 49 MG/Valsartan 51 MG TABLET PO SCH (09:00)
[2023-04-03] MEDS ORDERED: Furosemide 20 MG TAB PO SCH ×2 (09:00)
[2023-04-03] MEDS ORDERED: hydrALAZINE 25 MG TAB PO SCH (09:00)
[2023-04-03] MEDS: hydrALAZINE 25 MG TAB PO SCH ×2 (16:29→23:24)
[2023-04-03] MEDS ORDERED: Multivit, Therapeutic 1 TAB PO SCH (21:00)
[2023-04-03] MEDS ORDERED: Cholecalciferol 1,000 UNITS (25 MCG) TAB PO SCH (21:00)
[2023-04-03] MEDS ORDERED: Atorvastatin Calcium 20 MG TAB PO SCH (21:00)
[2023-04-03] MEDS ORDERED: Metamucil PACK PO SCH (21:00)
[2023-04-03] MEDS ORDERED: Magnesium Oxide 250 MG TAB PO SCH (21:00)
[2023-04-04 05:05] LABS: Iron 27 ug/dL (50-170); Iron Binding Capacity, Total 255 mcg/dL (265-497)
[2023-04-04 05:31] LABS: HBCM Index 0.06 S/CO (0-0.79); HBSAg Index 0.34 S/CO (0-0.99); Hep A IgM AB Non-Reactive S/CO (NonReactive); Hep A IgM S/CO 0.13 S/CO (0-0.79); Hep B Surf Ag Non-Reactive S/CO (NonReactive); Hep C IgG Ab Non-Reactive S/CO (NonReactive); Hep C Index 0.06 S/CO (0-0.79); Hepatitis B Core IgM Abs Non-Reactive S/CO (NonReactive)
[2023-04-04 05:49] VITALS: BMI 34.7
[2023-04-04 06:56] LABS: Albumin 3.2 g/dL (3.4-4.8); Anion Gap 14 mmol/L (10-20); BUN (Urea Nitrogen) 28 mg/dL (9.8-20.1); BUN/Creatinine Ratio 14.29; Calc. Creatinine Clearance 27 mL/min (70-130); Calcium 8.8 mg/dL (7.8-10.44); Carbon Dioxide 26 mmol/L (23-31); Chloride 104 mmol/L (98-107); Estimated GFR 24; Glucose 101 mg/dL (83-110); Phosphorus 3.3 mg/dL (2.3-4.7); Potassium 3.7 mmol/L (3.5-5.1); Sodium 140 mmol/L (136-145)
[2023-04-04] MEDS ORDERED: hydrALAZINE 25 MG TAB PO SCH (09:00)
[2023-04-04] MEDS: Empagliflozin 10 MG TAB PO SCH (09:36)
[2023-04-04] MEDS: Spironolactone 25 MG TAB PO SCH (09:36)
[2023-04-04] MEDS: Carvedilol 25 MG TAB PO SCH (09:36)
[2023-04-04] MEDS: Isosorbide Dinitrate 20 MG TAB PO SCH (09:36)
[2023-04-04] MEDS: Famotidine/PF 20 mg/2ml Vial SLOW IVP SCH (09:36)
[2023-04-04 09:40] VITALS: TEMP 98
[2023-04-04 14:23] VITALS: BP 157/80
[2023-04-07 16:00] LABS: ANA Symphony (Qualitative) POSITIVE (Negative); ANA Symphony (Quantitative) 3.4 Ratio (< 0.7 Negative); CENP IgG Antibody 0.7 EliAU/mL (<7 Negative); EliA Vaculitis New Method **** NEW METHOD ****; Jo-1 IgG Antibody Less than 0.3 EliAU/mL (<7 Negative); Mitochondrial Ab 0.8 U/mL (<4 Negative); RNP70 IgG Antibody 1.7 EliAU/mL (<7 Negative); SSB/La IgG Antibody Less than 0.4 EliAU/mL (<7 Negative); Scleroderma-70 IgG Antibody Less than 0.6 EliAU/mL (<7 Negative)
== END 2023-04-04 15:40 | disposition home health service (06) | DRG 436 ==
LOC: ERS 20:38 → 2NO 23:20
PROVIDERS: ADMIT Student in an Organized Health Care Education/Training Program; ATTEND Family Medicine
DX: C78.7 Secondary malignant neoplasm of liver and intrahepatic bile duct (principal); I13.0 Hypertensive heart and chronic kidney disease with heart failure and stage 1 through stage 4 chronic kidney disease, or unspecified chronic kidney disease; I48.20 Chronic atrial fibrillation, unspecified; I50.42 Chronic combined systolic (congestive) and diastolic (congestive) heart failure; N17.9 Acute kidney failure, unspecified; N18.4 Chronic kidney disease, stage 4 (severe); J90 Pleural effusion, not elsewhere classified; E87.6 Hypokalemia; E11.22 Type 2 diabetes mellitus with diabetic chronic kidney disease; E11.40 Type 2 diabetes mellitus with diabetic neuropathy, unspecified; E27.9 Disorder of adrenal gland, unspecified; E78.5 Hyperlipidemia, unspecified; K76.89 Other specified diseases of liver; C80.1 Malignant (primary) neoplasm, unspecified; K74.60 Unspecified cirrhosis of liver; Z90.710 Acquired absence of both cervix and uterus; Z91.018 Allergy to other foods; Z79.82 Long term (current) use of aspirin; Z79.899 Other long term (current) drug therapy; Z98.890 Other specified postprocedural states; Z11.52 Encounter for screening for COVID-19
CPT/HCPCS: 36415; 36416; 71045; 74176; 74181; 80053; 80069; 80074; 82105; 82378; 82728; 83516; 83540; 83550; 83605; 83735; 83880; 85025; 85610; 86015; 86038; 86140; 86225; 86301; 87040; 93005; J2405; S0028

== ENCOUNTER 2023-05-16 09:45 | Inpatient (IN) | payer MEDICARE ==
[2023-05-16] MEDS ORDERED: Metoclopramide HCl 10 MG (2 mL) VIAL ONE (10:44)
[2023-05-16 11:00] LABS: #Monocytes 0.3 thou/uL (0.11-0.59); #Neutrophils 7.1 thou/uL (1.40-6.50); %Basophils 0.2 % (0.0-1.0); %Eosinophils 0.2 % (0.0-10.0); %Lymphocytes 7.5 % (21.0-51.0); %Monocytes 3.7 % (0.0-10.0); %Neutrophils 87.9 % (42.0-75.0); Hematocrit 37.8 % (36.0-47.0); Mean Corpuscular HGB CONC 31.7 g/dL (32.0-36.0); Mean Corpuscular Hemoglobin 28.5 pg (27.0-31.0); Mean Corpuscular Volume 89.8 fl (78.0-98.0); Mean Platelet Volume 12.3 fL (7.4-10.4); Platelet Count 221 10x3/uL (130-400); RBC Distribution Width 14.6 % (11.5-14.5); Red Blood Cell (RBC) Count 4.21 mill/uL (4.20-5.40); White Blood Cell (WBC) Count 8.1 10x3/uL (4.8-10.8)
[2023-05-16] MEDS ORDERED: cefTRIAXone (ROCEPHIN) 1 GM VIAL ONE (11:21)
[2023-05-16] MEDS ORDERED: fentaNYL 50 mcg/mL 1 mL Vial ONE (11:21)
[2023-05-16] MEDS ORDERED: Sodium Chloride 0.9% 100 ML ONE (11:21)
[2023-05-16 11:24] LABS: Troponin I 0.036 ng/mL (< 0.028)
[2023-05-16] MEDS ORDERED: Azithromycin 500 MG VIAL ONE (12:19)
[2023-05-16] MEDS ORDERED: Sodium Chloride 0.9% 250 ML 250 ML ONE (12:20)
[2023-05-16 12:23] LABS: Albumin 3.6 g/dL (3.4-4.8)
[2023-05-16 12:24] LABS: Calcium 8.7 mg/dL (7.8-10.44); Chloride 103 mmol/L (98-107); Potassium 3.2 mmol/L (3.5-5.1); Sodium 140 mmol/L (136-145)
[2023-05-16 12:25] LABS: Globulin 2.6 g/dL (2.4-3.5); Glucose 136 mg/dL (83-110); Protein, Total 6.2 g/dL (5.8-8.1)
[2023-05-16 12:27] LABS: Carbon Dioxide 25 mmol/L (23-31)
[2023-05-16 12:28] LABS: Alkaline Phosphatase 63 U/L (40-110); Calc. Creatinine Clearance 0 mL/min (70-130); Estimated GFR 32
[2023-05-16 12:29] LABS: BUN (Urea Nitrogen) 21 mg/dL (9.8-20.1)
[2023-05-16 12:30] LABS: AST (SGOT) 15 U/L (5-34)
[2023-05-16 12:31] LABS: ALT (SGPT) 9 U/L (8-55); Magnesium 3.7 mg/dL (1.6-2.6)
[2023-05-16 12:32] LABS: Lipase 4 U/L (8-78)
[2023-05-16 13:29] LABS: SARS-CoV-2 NAA Rapid Test Not Detected (NotDetected)
[2023-05-16 13:32] LABS: Anion Gap 15 mmol/L (10-20)
[2023-05-16] MEDS ORDERED: Enoxaparin 100 MG (1 mL) SYRINGE ONE (13:41)
[2023-05-16] MEDS ORDERED: Dextrose 5% in Water 1,000 ML IV PRN (14:24)
[2023-05-16] MEDS ORDERED: Glucagon 1 MG/ML KIT IM PRN (14:24)
[2023-05-16] MEDS ORDERED: Dextrose 50% Abboject 50 ML SYRINGE SLOW IVP PRN (14:24)
[2023-05-16] MEDS ORDERED: Acetaminophen 325 MG TAB PO PRN (14:24)
[2023-05-16] MEDS ORDERED: HumaLOG 300 UNITS/3 ML VIAL SC PRN ×2 (14:24)
[2023-05-16] MEDS ORDERED: Ipratropium/Albuterol 3 ML NEB NEB PRN (14:30)
[2023-05-16] MEDS ORDERED: Nitroglycerin 0.4 MG TAB (25 Tab Bottle) ONE (14:37)
[2023-05-16 14:53] LABS: Troponin I 0.064 ng/mL (< 0.028)
[2023-05-16] MEDS ORDERED: Potassium Chloride 20 MEQ TAB PO SCH (15:45)
[2023-05-16] MEDS: hydrALAZINE 25 MG TAB PO SCH (16:59)
[2023-05-16] MEDS: Carvedilol 25 MG TAB PO SCH ×2 (16:59→22:02)
[2023-05-16] MEDS: Isosorbide Dinitrate 20 MG TAB PO SCH ×2 (16:59→22:02)
[2023-05-16 17:44] VITALS: BMI 30.4
[2023-05-16 18:48] LABS: Troponin I 0.135 ng/mL (< 0.028)
[2023-05-16] MEDS: Ondansetron PF 4 MG/2 ML Vial IVP PRN (20:14)
[2023-05-17] MEDS: hydrALAZINE 25 MG TAB PO SCH ×2 (04:18→13:39)
[2023-05-17] MEDS: Ondansetron PF 4 MG/2 ML Vial IVP PRN ×2 (04:35→10:12)
[2023-05-17 05:26] LABS: #Monocytes 0.8 thou/uL (0.11-0.59); #Neutrophils 7.5 thou/uL (1.40-6.50); %Basophils 0.2 % (0.0-1.0); %Lymphocytes 8.1 % (21.0-51.0); %Monocytes 8.4 % (0.0-10.0); %Neutrophils 82.9 % (42.0-75.0); Hemoglobin 10.7 g/dL (12.0-16.0); Mean Corpuscular HGB CONC 30.6 g/dL (32.0-36.0); Mean Corpuscular Hemoglobin 28.4 pg (27.0-31.0); Mean Platelet Volume 12.7 fL (7.4-10.4); Platelet Count 196 10x3/uL (130-400); RBC Distribution Width 14.8 % (11.5-14.5); Red Blood Cell (RBC) Count 3.77 mill/uL (4.20-5.40); White Blood Cell (WBC) Count 9.1 10x3/uL (4.8-10.8)
[2023-05-17 05:46] LABS: Anion Gap 16 mmol/L (10-20); BUN (Urea Nitrogen) 27 mg/dL (9.8-20.1); Calc. Creatinine Clearance 20 mL/min (70-130); Calcium 8.8 mg/dL (7.8-10.44); Carbon Dioxide 23 mmol/L (23-31); Chloride 104 mmol/L (98-107); Estimated GFR 19; Glucose 114 mg/dL (83-110); Potassium 3.6 mmol/L (3.5-5.1); Sodium 139 mmol/L (136-145)
[2023-05-17] MEDS ORDERED: Furosemide 40 MG (4 mL) VIAL SLOW IVP SCH (06:00)
[2023-05-17] MEDS ORDERED: Potassium Chloride 10 MEQ TAB PO SCH (06:00)
[2023-05-17 06:14] LABS: Mean Corpuscular Volume 92.8 fl (78.0-98.0)
[2023-05-17] MEDS ORDERED: Spironolactone 25 MG TAB PO SCH (08:00)
[2023-05-17] MEDS ORDERED: Empagliflozin 10 MG TAB PO SCH (09:00)
[2023-05-17] MEDS ORDERED: Aspirin 81 mg Enteric Coated Tablet PO SCH (09:00)
[2023-05-17 10:48] VITALS: BP 128/83; TEMP 97.1
[2023-05-17] MEDS ORDERED: cefTRIAXone\\ROCEPHIN 1 GM in Sodium Chloride 0.9% 100 ML IVPB SCH (12:00)
[2023-05-17] MEDS ORDERED: Azithromycin 500 MG in Sodium Chloride 0.9% 250 ML 250 ML IVPB SCH (13:00)
[2023-05-17] MEDS: Carvedilol 25 MG TAB PO SCH (13:39)
[2023-05-17] MEDS: Isosorbide Dinitrate 20 MG TAB PO SCH (13:40)
== END 2023-05-17 11:38 | disposition expired ==
LOC: ERS 09:45 → ERHOLD 13:00 → 2NO 16:05
PROVIDERS: ADMIT Family Medicine; ATTEND Internal Medicine
PROC: 5A12012 Performance of Cardiac Output, Single, Manual (ICD-10-PCS; principal; 2023-05-17)
DX: I13.0 Hypertensive heart and chronic kidney disease with heart failure and stage 1 through stage 4 chronic kidney disease, or unspecified chronic kidney disease (principal); I21.A1 Myocardial infarction type 2; I50.41 Acute combined systolic (congestive) and diastolic (congestive) heart failure; J18.9 Pneumonia, unspecified organism; N18.4 Chronic kidney disease, stage 4 (severe); E66.9 Obesity, unspecified; R09.02 Hypoxemia; I48.91 Unspecified atrial fibrillation; E87.6 Hypokalemia; K76.9 Liver disease, unspecified; E11.22 Type 2 diabetes mellitus with diabetic chronic kidney disease; I46.9 Cardiac arrest, cause unspecified; Z87.09 Personal history of other diseases of the respiratory system; Z90.49 Acquired absence of other specified parts of digestive tract; Z98.890 Other specified postprocedural states; Z90.710 Acquired absence of both cervix and uterus; Z91.018 Allergy to other foods; Z91.09 Other allergy status, other than to drugs and biological substances; Z79.82 Long term (current) use of aspirin; Z79.899 Other long term (current) drug therapy; Z68.30 Body mass index [BMI] 30.0-30.9, adult; Z11.52 Encounter for screening for COVID-19; Z79.84 Long term (current) use of oral hypoglycemic drugs; Z95.818 Presence of other cardiac implants and grafts
CPT/HCPCS: 36415; 36416; 71045; 80048; 80053; 83690; 83735; 83880; 84484; 85025; 87040; 93005; J0456; J0696; J1650; J1940; J2405; J2765; J3010; J3490; J7050